=== PATIENT | male | born 1950 | race Caucasian/White ===

== ENCOUNTER → 2017-06-28 14:55 | Outpatient (CLI) | payer MEDICARE, SELFPAY ==
--- NOTE | 2017-06-28 15:01 | RAD_ITS ---
STUDY: X-RAY - RIGHT SHOULDER REASON FOR EXAM: Male, 67 years old. Pain TECHNIQUE: 4 view(s) of the shoulder. COMPARISON: None. FINDINGS: There is no evidence of fracture or dislocation. There are mild degenerative changes noted. There are no radiodense foreign bodies. RAD/Shoulder min 2 Views IMPRESSION: No fracture or dislocation. Mild degenerative changes. Electronically Signed: Tru Tomas, at 23:57 EDT Tel , Service support ,
== END ==
PROVIDERS: Family Provider Internal Medicine; PCP Internal Medicine; Visit Provider Internal Medicine
DX: M25.511 Pain in right shoulder (principal)
CPT/HCPCS: 73030

== ENCOUNTER → 2017-09-25 09:16 | Outpatient (CLI) | payer MEDICARE, SELFPAY ==
--- NOTE | 2017-09-25 09:35 | EKG12_ITS ---
Test Reason : PREOP Blood Pressure : / mmHG Vent. Rate : 064 BPM Atrial Rate : 064 BPM P-R Int : 186 ms QRS Dur : 088 ms QT Int : 390 ms P-R-T Axes : 060 051 037 degrees QTc Int : 402 ms Normal sinus rhythm Normal ECG Confirmed by MOISES BAKER, DIANA ([id number]), city editor DOROTA PRUITT ([id number] on 09/28/2017 1:39:03 PM Referred By: Geoff Galvin Confirmed By:DIANA DE LEON MD
[2017-09-25 10:15] LABS: Hematocrit 38.5 % (40-54); Hemoglobin 12.9 g/dl (13.0-16.5); Mean Corp Hgb Conc 33.5 g/gl (32-36); Mean Corpuscular Hgb 29.1 pg (27.0-32.0); Mean Corpuscular Volume 86.7 fL (80-94); Mean Platelet Vol. 10.5 fl (6.2-12.0); Platelet Count 250 K/mm3 (150-450); RBC Distribution Width SD 40.5 fl (35.1-43.9); Red Blood Count 4.44 M/mm3 (4.6-6.2)
[2017-09-25 10:16] LABS: Scan Indicated on CBC? Y/N NO
[2017-09-25 11:09] LABS: Anion Gap 6 (5-15); BUN 15 mg/dL (7-18); BUN/Creat Ratio 18.5 RATIO (10-20); Chloride 104 mmol/L (98-107); Creatinine, Serum 0.81 mg/dL (0.70-1.30); EST Glomerular Filtration Rate 101 mL/min (>60); Est Glom Filt Rate - Afr Amer 122 mL/min (>60); Glucose 90 mg/dL (74-106); Potassium 4.5 mmol/L (3.5-5.1); Sodium Level 139 mmol/L (136-145)
== END ==
PROVIDERS: Family Provider Internal Medicine; PCP Internal Medicine; Visit Provider Physician Assistant
DX: Z01.818 Encounter for other preprocedural examination (principal); Z01.810 Encounter for preprocedural cardiovascular examination
CPT/HCPCS: 36415; 80048; 85027; 93005

== ENCOUNTER 2018-04-08 12:37 | Emergency (ER) | payer MEDICARE, SELFPAY ==
[2018-04-08 12:40] VITALS: BP 164/88; PULSE 85; RESP 14; TEMP 36.6; O2SAT 99; BMI 31.5
--- NOTE | 2018-04-08 12:59 | CT_ITS ---
STUDY: CT ABDOMEN AND PELVIS WITH CONTRAST REASON FOR EXAM: Male, 68 years old. Periumbilical suprapubic pain. Nausea, vomiting and diarrhea. RADIATION DOSAGE (If Supplied By Facility): CTDIvol = ( 13.01 ) mGy, DLP = ( 827.63 ) mGycm TECHNIQUE: Transaxial images were obtained from the dome of the diaphragm to the symphysis pubis without oral contrast. 100 ml of Isovue 300 contrast was administered. Sagittal and coronal images were reconstructed. Individualized dose optimization techniques were used for this CT. COMPARISON: October 06, 2016. FINDINGS: The visualized lung bases are unremarkable. The visualized portions of the heart are within normal limits. The liver appears normal in size and contour. Several hypodensities in the left liver consistent with cysts. The largest in segment 3, measures 2.0 x 1.8 x 1.0 cm in size. There are surgical clips in the gallbladder fossa consistent with a prior cholecystectomy. Normal spleen. Normal pancreas. Normal bilateral adrenal glands. Normal right kidney. Normal left kidney. Normal bilateral ureters. Question small type I hiatal hernia. The stomach is otherwise unremarkable. Normal small intestine. There is evidence of sigmoid diverticulitis with stranding of the pericolonic fat and thickening of the cecal wall. The proximal colon appears unremarkable. There is non-visualization of the appendix. There is diffuse atherosclerotic calcification of the abdominal aorta, without a demonstrated aneurysm. Normal inferior vena cava. Normal retroperitoneum. Normal urinary bladder. The prostate is mildly enlarged. Prominent seminal vesicles. There is no pelvic lymphadenopathy. No free air or free fluid is seen within the peritoneal cavity. There is small umbilical hernia of omental fat. The abdominal wall is otherwise unremarkable. Normal osseous structures. CT/Abdomen/Pelvis W IV Cont ONLY IMPRESSION: 1. Sigmoid diverticulitis without evidence of perforation or abscess. 2. Stable hepatic cysts. 3. Enlarged prostate. Electronically Signed: Arpan Farrell DO at 14:28 EST Tel [phone], Service support ,
--- NOTE | 2018-04-08 13:01 | ED.VISSUMM ---
- ER Visit Summary Date of Service: 04/08/18 Chief Complaint: Suprapubic and periumbilical abdominal pain History of Present Illness: The patient is a 68 M history of prior diverticulitis. Also hypertension, BPH and prior cholecystectomy. Patient states on Sunday starting in the periumbilical suprapubic abdominal pain is now worse. Initially had some constipation but has had a bowel movement since that time. He is felt somewhat bloated. He denies any melena. No fever. No weight change. No abdominal trauma. Physical Examination: Well-appearing older male. Vital signs are stable. Afebrile. He does not look septic or toxic. He is in no acute distress. H EENT exam unremarkable. Neck nontender no lymphadenopathy. Lungs clear to auscultation bilaterally. Heart regular rhythm no murmur. Abdomen soft. Nondistended. Normal bowel sounds. No peritoneal signs. Both right upper and right lower quadrant unremarkable. He has tenderness in the suprapubic periumbilical region. There is no hernias or masses. No pulsatile mass. Extremities moves all 4. Back nontender. Neurologically is awake alert with no focal motor deficits. Test Results: [] Emergency Department Course and Treatment: CT and labs to be obtained due to abdominal pain. Currently patient does not want anything for pain or nausea. He will be hydrated with a liter of normal saline due to the IV contrast. Treatment Plan: [] Disposition: [] Impression: Acute abdominal pain This note was generated with [employer] dictation software. It may contain incorrect words, spelling, and punctuation that were not noted in review of the chart prior to signing ED Disposition - Plan for ED Patient: Chief Complaint: Abd Pain Referrals: Caridad Grace DO [Primary Care Provider] -
[2018-04-08] MEDS: 0.9% Normal Saline 1,000 ML 1000 ML IV (13:19)
[2018-04-08 13:20] LABS: Absolute Lymphocyte Count 1.25 X10^3/ul (0.83-4.51); Basophil# 0.03 X10^3/uL; Basophil% 0.3 % (0-1); Eosinophil# 0.07 X10^3/uL; Eosinophils% 0.7 % (0-5); Hemoglobin 13.7 g/dl (13.0-16.5); Lymphocyte # 1.25 X10^3/ul (4.0); Mean Corp Hgb Conc 33.4 g/gl (32-36); Mean Corpuscular Hgb 28.6 pg (27.0-32.0); Mean Corpuscular Volume 85.6 fL (80-94); Mean Platelet Vol. 10.1 fl (6.2-12.0); Monocyte# 1.06 X10^3/uL; Monocyte% 10.1 % (0-10); Neutrophil # 8.02 X10^3/uL (2.7-7.7); Neutrophil % 76.7 % (47-70); Platelet Count 286 K/mm3 (150-450); RBC Distribution Width CV 13.1 % (11.6-14.6); RBC Distribution Width SD 40.1 fl (35.1-43.9); Red Blood Count 4.79 M/mm3 (4.6-6.2); White Blood Count 10.5 K/mm3 (4.4-11.0)
[2018-04-08 13:22] LABS: POSITIVE COUNT NO; POSITIVE DIFFERENTIAL NO; POSITIVE MORPHOLOGY NO
[2018-04-08 13:35] LABS: AST(SGOT) 21 U/L (15-37); Alanine Aminotransfer ALT/SGPT 23 U/L (16-61); Alkaline Phosphatase 85 U/L (45-117); Anion Gap 9 (5-15); BUN 12 mg/dL (7-18); Bilirubin, Direct 0.13 mg/dL (0.00-0.30); Calcium,Total 8.9 mg/dL (8.5-10.1); Chloride 103 mmol/L (98-107); Creatinine, Serum 0.86 mg/dL (0.70-1.30); EST Glomerular Filtration Rate 94 mL/min (>60); Est Glom Filt Rate - Afr Amer 114 mL/min (>60); Estimated Creatinine Clearance 76.86 ml/min; Globulin 4.3 g/dL (2.2-4.2); Glucose 92 mg/dL (74-106); Lipase 94 U/L (73-393); Potassium 3.8 mmol/L (3.5-5.1); Protein, Total 8.3 g/dL (6.4-8.2); Sodium Level 140 mmol/L (136-145)
[2018-04-08 14:22] LABS: Bacteria 0 SEEN /hpf (None Seen); Mucous, Urine 0 SEEN /hpf (<or=2+); Red Blood Cells-Urine 0 SEEN /hpf (0-5); Squamous Epithelial Cells - UA 0 SEEN /hpf (0-5); White Blood Cells 0 SEEN /hpf (0-5)
[2018-04-08 14:28] LABS: Color, Urine Yellow (Yellow); Glucose, Dipstick Normal (Normal); Ketone-Dipstick Negative (Negative); Leukocyte Esterase-Dipstick Negative /ul (Negative); Nitrite-Dipstick Negative (Negative); Occult Blood-Urine Negative /ul (Negative); Protein-Dipstick Negative (Negative); Urine Bilirubin Dipstick Negative (Negative); Urine Clarity Clear (Clear); Urine Urobilinogen Normal (Normal)
[2018-04-08 14:51] VITALS: RESP 18
--- NOTE | 2018-04-08 14:56 | ED.VISSUMM ---
- ER Visit Summary Date of Service: 04/08/18 Chief Complaint: Abdominal pain History of Present Illness: The patient is a 68 M history of hypertension and BPH. Prior cholecystectomy. Patient states that he has had abdominal pain is periumbilical and suprapubic since Sunday. Gradual in onset. Denies any nausea, vomiting or diarrhea since that time is had bowel movements. No melena. No hematemesis. No fever. No dysuria. Says he feels a little bloated. He has had a history of diverticulitis before. Denies any back pain. Physical Examination: Well-appearing older male. Vital signs are stable afebrile. H EENT exam unremarkable. Moist mucous membranes. Neck nontender no lymphadenopathy. Lungs clear to auscultation bilaterally. Heart regular rate and rhythm no murmur. Abdomen soft. Nondistended. Normal bowel sounds. Patient is mildly tender just below his umbilicus. There is no obvious hernia or mass. But the right upper right lower quadrant unremarkable. No signs of obstruction. No pulsatile mass. Extremities moves all 4. No edema. Neurologically is awake and alert. No focal motor deficits. Test Results: Normal white count of 10. Normal hemoglobin and hematocrit. Chemistries normal normal creatinine and gap. Liver enzymes and lipase normal. UA normal no signs of infection. Bladder scan was only about 130 cc no signs of urinary retention. CT abdomen pelvis with IV contrast shows sigmoid diverticulitis. No abscess or perforation. Enlarged prostate. Incidental finding of liver cyst. Read by the radiologist and reviewed by me. Emergency Department Course and Treatment: Patient's history and exam are consistent with acute diverticulitis. He will be given a dose of Cipro and Flagyl in the emergency department. Treatment Plan: Cipro 500 twice daily for 10 days. Flagyl 500 3 times daily for 10 days. The follow-up with his primary care physician. Return if worse. Disposition: Discharge Impression: Acute abdominal pain secondary to acute sigmoid diverticulitis This note was generated with [employer] dictation software. It may contain incorrect words, spelling, and punctuation that were not noted in review of the chart prior to signing ED Disposition - Plan for ED Patient: Chief Complaint: Abd Pain Referrals: Caridad Grace DO [Primary Care Provider] -
--- NOTE | 2018-04-08 15:02 | ED.DEP ---
ED Disposition - Plan for ED Patient: Disposition: Home or Assisted Living Chief Complaint: Abd Pain Instructions: ED Diverticulitis Prescriptions: Metronidazole [Flagyl] 500 mg PO Q8H #30 tab Ciprofloxacin [Cipro] 500 mg PO BID #20 tab Referrals: Caridad Grace DO [Primary Care Provider] - 1 Week Additional Instructions: Plenty of fluids and rest. Cipro 1 pill twice a day for 10 days. Flagyl 1 pill 3 times a day for 10 days. Tylenol for pain. Follow-up with your doctor. Return if feeling worse.
[2018-04-08] MEDS: Ciprofloxacin 500 MG Tablet PO (15:17)
[2018-04-08] MEDS: metroNIDAZOLE 500 MG Tablet PO (15:22)
== END 2018-04-08 15:23 | disposition home or self-care (01) ==
PROVIDERS: Emergency Provider Emergency Medicine; Family Provider Internal Medicine; PCP Internal Medicine
DX: K57.32 Diverticulitis of large intestine without perforation or abscess without bleeding (principal); N40.0 Benign prostatic hyperplasia without lower urinary tract symptoms; K76.89 Other specified diseases of liver; I10 Essential (primary) hypertension; Z90.49 Acquired absence of other specified parts of digestive tract
CPT/HCPCS: 74177; 80048; 80076; 81001; 83690; 85025; 96360; 99284; J7030; Q9967; A4216

== ENCOUNTER 2019-03-19 10:00 | Inpatient (IN) | payer MEDICARE, OTHER, SELFPAY ==
[2019-03-19] VITALS (7 sets, daily range): BP systolic 129–153; BP diastolic 72–80; PULSE 73–99; RESP 16–20; TEMP 36.7–37.3; O2SAT 95–100; BMI 29.8; BMI 29.4
--- NOTE | 2019-03-19 10:14 | CT_ITS ---
STUDY: CT ABDOMEN AND PELVIS WITHOUT CONTRAST REASON FOR EXAM: Male, 69 years old. PT STATED ABDOM PAIN X 2 DAYS, HX OF DIVERTICULITIS AND ROBERT RADIATION DOSAGE (If Supplied By Facility): CTDIvol = ( 13.18 ) mGy, DLP = ( 691.34 ) mGycm TECHNIQUE: Transaxial images were obtained from the dome of the diaphragm to the symphysis pubis without oral contrast, and without intravenous contrast. Sagittal and coronal images were reconstructed. Individualized dose optimization techniques were used for this CT. COMPARISON: Comparison is made with prior study dated April 08, 2018. FINDINGS: The visualized lung bases are unremarkable. The visualized portions of the heart are within normal limits. Stable 1.8 cm cyst in the left lobe of the liver. There are surgical clips in the gallbladder fossa consistent with a prior cholecystectomy. Normal spleen. Normal pancreas. Normal bilateral adrenal glands. Normal right kidney. Normal left kidney. There is a small hiatal hernia. Normal small intestine. There is diverticulosis, with thickening of the colon wall, and pericolonic inflammation changes consistent with acute diverticulitis. 2 tiny air bubbles are seen within the peritoneal fat suggestive of a contained localized perforation. The appendix is visualized and appears normal. There is scattered atherosclerotic calcification of the abdominal aorta, without a demonstrated aneurysm. Normal inferior vena cava. Normal retroperitoneum. Normal urinary bladder. There are prostatic calcifications. Normal abdominal wall. There are mild degenerative changes of the visualized lumbar spine. CT/Abdomen/Pelvis without Cont IMPRESSION: Sigmoid diverticulosis with increased markings in the surrounding peritoneal fat in keeping with the acute sigmoid diverticulitis. Findings suggestive of a localized contained microperforation. Electronically Signed: Herrera Lopez, at 11:14 EST , Service support ,
--- NOTE | 2019-03-19 10:28 | ED.VISSUMM ---
- ER Visit Summary Date of Service: 03/19/19 Chief Complaint: [Abdominal pain] History of Present Illness: The patient is a 69 M [presents to the emergency department abdominal pain is started last evening. Patient states initially pain was left lower quadrant and suprapubic's but now seems to be located more to the right lower quadrant. Patient describes some difficulty starting his urine stream as well. He denies any pain in his back. He denies any fever. Has had no vomiting. Patient did have 3 watery stools this morning. He does have history of diverticulitis. Patient's had his gallbladder removed. Denies any sick contacts.] Physical Examination: [HEENT-PERRLA, EOMI. Cranial nerves II through XII grossly intact. TMs clear. Mucous membranes moist. No adenopathy. Cardiovascular-regular rate and rhythm without murmur or ectopy Lungs-clear to auscultation, chest wall stable without crepitus or subcu emphysema Abdomen-normoactive bowel sounds, soft. Patient has some tenderness palpation over right lower quadrant with some guarding. He is got tenderness over the suprapubic region and left lower quadrant with some guarding. There is no rebound, rigidity, or peritoneal signs. Extremities-intact ?4, normal range of motion, normal pulses, atraumatic] Test Results: [CBC with differential obtained showed an elevated white blood cell count of 12,000, hemoglobin 13, hematocrit 41, placed 224. Chemistries unremarkable. CT scan of the abdomen pelvis without contrast showed acute diverticulitis with microperforation.] Emergency Department Course and Treatment: [She refused pain medication in department. Patient was started on normal saline and was started on Cipro and Flagyl IV.] Treatment Plan: [Case was discussed with general surgeon on-call Dr. Urban Mendoza who will admit patient] Disposition: [Admit] Impression: [Acute diverticulitis with microperforation] This note was generated with [employer] dictation software. It may contain incorrect words, spelling, and punctuation that were not noted in review of the chart prior to signing ED Disposition - Plan for ED Patient: Referrals: Caridad Grace DO [Primary Care Provider] -
[2019-03-19 10:37] LABS: Absolute Lymphocyte Count 1.45 X10^3/uL (0.83-4.51); Absolute Neutrophil Count 9.3 X10^3/uL (2.0-7.7); Basophil# 0.06 X10^3/uL; Basophil% 0.5 % (0-1); Eosinophil# 0.09 X10^3/uL; Eosinophils% 0.7 % (0-5); Hematocrit 40.8 % (40-54); Hemoglobin 13.3 g/dL (13.0-16.5); Lymphocyte # 1.45 X10^3/ul (4.0); Lymphocyte % 12.1 % (19-41); Mean Corp Hgb Conc 32.6 g/dL (32-36); Mean Corpuscular Hgb 28.1 pg (27.0-32.0); Mean Corpuscular Volume 86.3 fL (80-94); Mean Platelet Vol. 9.5 fl (6.2-12.0); Monocyte# 1.13 X10^3/uL; Monocyte% 9.4 % (0-10); NRBC Flagged by Analyzer 0 % (0-5); Neutrophil # 9.25 X10^3/uL (2.7-7.7); Neutrophil % 76.9 % (47-70); Platelet Count 224 K/mm3 (150-450); RBC Distribution Width CV 12.8 % (11.6-14.6); RBC Distribution Width SD 40.2 fl (35.1-43.9); Red Blood Count 4.73 M/mm3 (4.6-6.2)
[2019-03-19 10:44] LABS: Anion Gap 4 (5-15); BUN 14 mg/dL (7-18); BUN/Creat Ratio 14.7 RATIO (10-20); Calcium,Total 9.3 mg/dL (8.5-10.1); Chloride 103 mmol/L (98-107); Creatinine, Serum 0.95 mg/dL (0.70-1.30); EST Glomerular Filtration Rate 83 mL/min (>60); Est Glom Filt Rate - Afr Amer 101 mL/min (>60); Estimated Creatinine Clearance 68.61 ml/min; Glucose 100 mg/dL (74-106); Potassium 3.9 mmol/L (3.5-5.1); Sodium Level 137 mmol/L (136-145)
[2019-03-19] MEDS: metroNIDAZOLE 500 MG/100 ML BAG 100 MG IV ×3 (11:52→22:25)
[2019-03-19] MEDS: 0.9% Normal Saline 1,000 ML 125 ML IV ×2 (11:52→22:26)
[2019-03-19 12:00] LABS: Bacteria 0 SEEN /hpf (None Seen); Mucous, Urine 0 SEEN /hpf (<or=2+); Red Blood Cells-Urine 0 SEEN /hpf (0-5); Squamous Epithelial Cells - UA 0 SEEN /hpf (0-5); White Blood Cells 0 SEEN /hpf (0-5)
[2019-03-19 12:03] LABS: Color, Urine Yellow (Yellow); Glucose, Dipstick Normal (Normal); Ketone-Dipstick Negative (Negative); Leukocyte Esterase-Dipstick Negative /ul (Negative); Nitrite-Dipstick Negative (Negative); Occult Blood-Urine Negative /ul (Negative); Protein-Dipstick Negative (Negative); Specific Gravity, Urine 1.005 (1.002-1.030); Urine Bilirubin Dipstick Negative (Negative); Urine Clarity Clear (Clear); Urine Urobilinogen Normal (Normal)
--- NOTE | 2019-03-19 12:31 | HP.PCM_ITS ---
Problem List (1) Perforation of sigmoid colon due to diverticulitis Status: Acute (2) Hypertension Status: Chronic Qualifiers: Hypertension type: unspecified Qualified Code(s): I10 - Essential (primary) hypertension (3) BPH (benign prostatic hyperplasia) Status: Chronic Qualifiers: Lower urinary tract symptom detail: unspecified History of Present Illness Date of Admission: 03/19/19 The patient is a 69 year old M who presented to the emergency room with a 1 day history of mid abdominal pain. The patient states that over the past 1 to 2 years he has had 2 previous bouts this was now being the third bout of abdominal pain which is been diagnosed as diverticulitis. Previously was seen in the emergency room and was able to be discharged on oral antibiotics. On this occasion however white blood cell count is 12,000 with a hemoglobin 13.3 hematocrit 40.8 platelet count 224,000 with 76.9% neutrophils. Is a 14 creatinine 0.95 urinalysis is not remarkable. A noncontrasted CT scan was obtained through the emergency room. This demonstrates sigmoid diverticulosis there are increased markings of the surrounding peritoneal fat this actually is quite significant particularly medially and there are air bubbles located within this consistent with perforation. No distinct abscess at this time. Patient denies having had fever or chills at home. His most recent colonoscopy he believes was about 4 to 5 years ago. He denies personal history of colon polyps or cancer. Initially with his first episode he thought popcorn was eliciting food. He has eliminated all popcorn and seeds. He has not recognized a particular trigger food that may have caused this episode. Past Medical History Past Medical History (Chronic Problems): Chronic Problems Hypertension (Chronic) BPH (benign prostatic hyperplasia) (Chronic) Allergies metoclopramide [From Reglan] Adverse Reaction (Verified 03/19/19 10:03) Other AGGITATION Home Medications: Ambulatory Orders Medication Instructions Recorded Tamsulosin HCl [Flomax] 1 tab PO DAILY 10/06/16 Amlodipine Besylate 5 mg PO DAILY 04/08/18 Ciprofloxacin [Cipro] 500 mg PO BID #20 tab 04/08/18 metroNIDAZOLE [Flagyl] 500 mg PO Q8H #30 tab 04/08/18 Smoking Status: Former smoker Review of Systems Constitutional: Denies: Anorexia HEENT: Denies: Difficulty Swallowing Cardiovascular: Denies: Chest Pain Respiratory: Denies: Cough Gastrointestinal: Reports: Abdominal Pain. Denies: Melena Neurological: Reports: - - Chronic pain right knee and right foot from previous injury and orthopedic surgery Endocrine: Denies: Change in Body Habitus VTE Information - Inpt Only VTE Present on Admission: No Patient Problems: Active and Suspected Problems Perforation of sigmoid colon due to diverticulitis (Acute) - Physical Exam Vitals/I&O's: Vital Signs Temp Pulse Resp BP Pulse Ox 98.7 F 75 18 135/80 H 98 03/19/19 10:01 03/19/19 10:01 03/19/19 12:04 03/19/19 10:01 03/19/19 10:01 Oxygen Delivery Method Room Air Weight: 190 lb 7.67 oz Body Mass Index (BMI) 29.8 General: Alert, Oriented x3, Cooperative, No apparent distress HEENT: Atraumatic Oral: Moist Mucosa Neck: Supple, - - Carotids are 3+ no bruits Lungs: Clear to auscultation, Normal air movement Cardiovascular: Regular rate, Regular Rhythm Abdomen: Soft, Hypoactive Bowel Sounds, - - Mild tenderness palpation infraumbilical mid abdomen slightly to the right, no mass or rebound Extremities: No clubbing Psych/Mental Status: Normal Affect Laboratory Results 03/19/19 10:24: WBC 12.0 H, RBC 4.73, Hgb 13.3, Hct 40.8, MCV 86.3, MCH 28.1, MCHC 32.6, RDW Std Deviation 40.2, RDW Coeff of [place] 12.8, Plt Count 224, MPV 9.5, Immature Gran % (Auto) 0.400, Neut % (Auto) 76.9 H, Lymph % (Auto) 12.1 L, [place] % (Auto) 9.4, Eos % (Auto) 0.7, Baso % (Auto) 0.5, Absolute Neuts (auto) 9.3 H, Absolute Lymphs (auto) 1.45, Nucleated RBC % 0 03/19/19 10:24: Sodium 137, Potassium 3.9, Chloride 103, Carbon Dioxide 30.0, Anion Gap 4 L, BUN 14, Creatinine 0.95, Estim Creat Clear Calc 68.61, Est GFR (MDRD) Af Amer 101, Est GFR (MDRD) Non-Af 83, BUN/Creatinine Ratio 14.7, Glucose 100, Calcium 9.3 01/08/20 11:55: Urine Color Yellow, Urine Clarity Clear, Urine pH 7.0, Ur Specific [place] 1.005, Urine Protein Negative, Urine Glucose (UA) Normal, Urine Ketones Negative, Urine Occult Blood Negative, Urine Nitrite Negative, Urine Bilirubin Negative, Urine Urobilinogen Normal, Ur Leukocyte Esterase Negative, Urine RBC 0 SEEN, Urine WBC 0 SEEN, Ur Squamous Epith Cells 0 SEEN, Urine Bacteria 0 SEEN, Urine Mucus 0 SEEN Current Medications Sodium Chloride () 1,000 mls @ 125 mls/hr IV .Q8H [facility] Last Admin: 03/19/19 11:52 Dose: 125 mls/hr Documented by: Assessment/Plan All Active Problems Perforation of sigmoid colon due to diverticulitis (Acute) Symptomatically and clinically the patient appears rather stable. His CT imaging however is quite significant for significant pericolonic inflammatory change and multiple air bubbles. I recommend that the patient be hospitalized and be put to bowel rest. I have discussed with the patient the potential need to undergo emergency surgery with us trying to avoid that. This is now his third episode within a relatively short period of time. The patient and a ctually brought the question forward as to whether he could should be considering a more aggressive treatment. Hopefully we will will be able to conservatively manage this episode. I would then consider a future outpatient colonoscopy and will have time to further discuss with him the benefit risk complications alternatives of a laparoscopic sigmoid colectomy for recurrent diverticular disease. That is not a foregone conclusion though at this time. Urban Mendoza M.D., F.A.C.S.
[2019-03-19] MEDS: Ciprofloxacin 400 MG/200 ML BAG 200 MG IV ×2 (13:28→21:00)
[2019-03-19] MEDS: Morphine 4 MG/ML Syringe IV (13:31)
[2019-03-19] MEDS: Ondansetron 4 MG/2 ML Vial IV (13:31)
[2019-03-19] MEDS: Acetaminophen 325 MG Tablet 650 MG PO (20:36)
[2019-03-20 02:10] VITALS: BP 127/75; PULSE 64; RESP 16; TEMP 36.7; O2SAT 99
[2019-03-20] MEDS: metroNIDAZOLE 500 MG/100 ML BAG 100 MG IV ×3 (05:33→21:35)
[2019-03-20] MEDS: Acetaminophen 325 MG Tablet 650 MG PO (05:37)
--- NOTE | 2019-03-20 05:50 | PN.SURG_ITS ---
Patient Problems: Active and Suspected Problems Perforation of sigmoid colon due to diverticulitis (Acute) Subjective: Patient still notes discomfort low mid abdomen slightly to the right, notes some gas pains, feels improved over admission yesterday, some flatus, no stools - Physical Exam Vitals/I&O's: Vital Signs Temp Pulse Resp BP Pulse Ox 98.1 F 64 16 127/75 H 99 03/20/19 02:10 03/20/19 02:10 03/20/19 02:10 03/20/19 02:10 03/20/19 02:10 Oxygen Delivery Method Room Air Weight: 188 lb 0.869 oz Body Mass Index (BMI) 29.4 Intake and Output for Last 24 Hours 03/18/19 03/19/19 03/20/19 23:59 23:59 23:59 Intake Total 1700.0 / 1700.0 766.67 / 766.67 Output Total 500 / 1075 1050 / 1050 Balance 1200.0 / 625.0 -283.33 / -283.33 Lungs: Clear to auscultation Abdomen: Soft - Mild tenderness low mid abdomen slightly to the right, Hypoactive Bowel Sounds Laboratory Results 03/19/19 10:24: WBC 12.0 H, RBC 4.73, Hgb 13.3, Hct 40.8, MCV 86.3, MCH 28.1, MCHC 32.6, RDW Std Deviation 40.2, RDW Coeff of Bradley 12.8, Plt Count 224, MPV 9.5, Immature Gran % (Auto) 0.400, Neut % (Auto) 76.9 H, Lymph % (Auto) 12.1 L, [place] % (Auto) 9.4, Eos % (Auto) 0.7, Baso % (Auto) 0.5, Absolute Neuts (auto) 9.3 H, Absolute Lymphs (auto) 1.45, Nucleated RBC % 0 03/19/19 10:24: Sodium 137, Potassium 3.9, Chloride 103, Carbon Dioxide 30.0, Anion Gap 4 L, BUN 14, Creatinine 0.95, Estim Creat Clear Calc 68.61, Est GFR (MDRD) Af Amer 101, Est GFR (MDRD) Non-Af 83, BUN/Creatinine Ratio 14.7, Glucose 100, Calcium 9.3 03/19/19 11:55: Urine Color Yellow, Urine Clarity Clear, Urine pH 7.0, Ur Specific [place] 1.005, Urine Protein Negative, Urine Glucose (UA) Normal, Urine Ketones Negative, Urine Occult Blood Negative, Urine Nitrite Negative, Urine Bilirubin Negative, Urine Urobilinogen Normal, Ur Leukocyte Esterase Negative, Urine RBC 0 SEEN, Urine WBC 0 SEEN, Ur Squamous Epith Cells 0 SEEN, Urine Bacteria 0 SEEN, Urine Mucus 0 SEEN 03/20/19 05:12: WBC Pending, RBC Pending, Hgb Pending, Hct Pending, MCV Pending, MCH Pending, MCHC Pending, RDW Std Deviation Pending, RDW Coeff of Bradley Pending, Plt Count Pending, Neut % (Auto) Pending, Absolute Neuts (auto) Pending 03/20/19 05:12: Sodium Pending, Potassium Pending, Chloride Pending, Carbon Dioxide Pending, Anion Gap Pending, BUN Pending, Creatinine Pending, Est GFR (MDRD) Af Amer Pending, Est GFR (MDRD) Non-Af Pending, BUN/Creatinine Ratio Pending, Glucose Pending, Calcium Pending Current Medications Acetaminophen (Tylenol) 650 mg PO Q6H PRN PRN PRN Reason: Pain Score 1-3/Temp > 100.7 F Last Admin: 03/20/19 05:37 Dose: 650 mg Documented by: Enoxaparin Sodium (Lovenox) 40 mg SC DAILY [facility] Sodium Chloride () 1,000 mls @ 50 mls/hr IV .Q20H [facility] Last Infusion: 03/20/19 05:33 Dose: 0 mls/hr Documented by: Ciprofloxacin (Cipro) 400 mg in 200 mls @ 200 mls/hr IV Q12 [facility] Last Infusion: 03/19/19 22:00 Dose: Infused Documented by: Metronidazole (Flagyl) 500 mg in 100 mls @ 100 mls/hr IV Q8 [facility] Last Admin: 03/20/19 05:33 Dose: 100 mls/hr Documented by: Ondansetron HCl (Zofran) 4 mg IV Q8H PRN PRN PRN Reason: NAUSEA/VOMITING Sodium Chloride () 10 - 40 ml IV UD PRN PRN Reason: SALINE FLUSH Medical Necessity - Tobacco Use Smoking Status: Former smoker Tobacco Use: Cigarettes Assessment/Plan All Active Problems Perforation of sigmoid colon due to diverticulitis (Acute) Will await laboratory and then consider initiation of clear liquids. Continue IV antibiotics at this time.
--- NOTE | 2019-03-20 05:51 | DCINST_ITS ---
Discharge Diet: Light diet - advance as tolerated - if you have questions about your diet instructions, please talk to you doctor., - - Encouraged use of nutritional supplements like Ensure or Sustacal or boost or [place] instant breakfast drink. Soups and soft pasta encouraged. You may utilize a [id number] probiotic. The use of live culture yogurt also encouraged. The diet may be slowly advanced as your sense of abdominal wellbeing improves Discharge Activity: May Drive, May Shower May shower in (days): 0 Lifting Restrictions: 10 pounds Call your doctor if your incision/area has: Continuous Slow Oozing, Sudden Increased Bleeding, Increased Pain/ Swelling, Increased Redness, Foul Smelling Discharge Call your doctor if you observe: Fever of 101 or Higher Suture Line Care: Avoid Pulling/Pushing, Avoid Pinching/Bending Additional Instructions: There is a interaction between ciprofloxacin your antibiotic that is being prescribed and Flomax which you take. Please hold your Flomax while you are taking the ciprofloxacin. You may then resume the medication when you have completed your antibiotic. Allergies/Adverse Reactions: Allergies metoclopramide [From Reglan] Adverse Reaction (Verified 03/19/19 14:17) AGITATION AGITATION Medications to take at Discharge Tamsulosin HCl [Flomax] 0.4 mg PO QHS 10/06/16 Amlodipine [Norvasc] 5 mg PO DAILY 03/19/19 Aspirin E.C. [Ecotrin] 81 mg PO DAILY@0800 03/19/19 Lansoprazole 15 mg PO DAILY 03/19/19 Rosuvastatin Calcium 10 mg PO DAILY 03/19/19 Ciprofloxacin [Cipro] 500 mg PO BID #10 tab 03/21/19 Metronidazole 500 mg PO TID #15 tab 03/21/19 The following prescriptions were given: Ciprofloxacin [Cipro] 500 mg PO BID #10 tab Transmission Status: Pending to [facility] Metronidazole 500 mg PO TID #15 tab Transmission Status: Pending to [facility] Primary Care Physician: Caridad Grace DO [Primary Care Provider] - Test Results: Test results from this visit will be discussed in further detail at your follow- up appointment, if applicable. Please Follow Up With: Urban Mendoza MD - [phone] When: Call to make an appointment to be seen approximately Sun/ next week.
[2019-03-20 06:04] LABS: Absolute Lymphocyte Count 1.48 X10^3/uL (0.83-4.51); Absolute Neutrophil Count 6.2 X10^3/uL (2.0-7.7); Basophil# 0.06 X10^3/uL; Basophil% 0.7 % (0-1); Eosinophil# 0.11 X10^3/uL; Eosinophils% 1.3 % (0-5); Hematocrit 37.5 % (40-54); Hemoglobin 12.3 g/dL (13.0-16.5); Lymphocyte # 1.48 X10^3/ul (4.0); Lymphocyte % 16.9 % (19-41); Mean Corp Hgb Conc 32.8 g/dL (32-36); Mean Corpuscular Hgb 28.6 pg (27.0-32.0); Mean Corpuscular Volume 87.2 fL (80-94); Mean Platelet Vol. 10.2 fl (6.2-12.0); Monocyte# 0.93 X10^3/uL; Monocyte% 10.6 % (0-10); NRBC Flagged by Analyzer 0 % (0-5); Neutrophil # 6.16 X10^3/uL (2.7-7.7); Neutrophil % 70.3 % (47-70); Platelet Count 194 K/mm3 (150-450); RBC Distribution Width CV 12.9 % (11.6-14.6); RBC Distribution Width SD 41.1 fl (35.1-43.9); White Blood Count 8.8 K/mm3 (4.4-11.0)
[2019-03-20 06:14] LABS: Anion Gap 5 (5-15); BUN 11 mg/dL (7-18); BUN/Creat Ratio 12.2 RATIO (10-20); Calcium,Total 8.9 mg/dL (8.5-10.1); Chloride 107 mmol/L (98-107); EST Glomerular Filtration Rate 89 mL/min (>60); Est Glom Filt Rate - Afr Amer 107 mL/min (>60); Estimated Creatinine Clearance 72.42 ml/min; Glucose 84 mg/dL (74-106); Sodium Level 139 mmol/L (136-145)
[2019-03-20 08:10] VITALS: BP 105/68; PULSE 98; RESP 18; TEMP 36.7; O2SAT 100
[2019-03-20] MEDS: Ciprofloxacin 400 MG/200 ML BAG 200 MG IV ×2 (10:34→21:35)
[2019-03-20] MEDS: Enoxaparin 40 MG/0.4 ML Syringe SC (10:39)
--- NOTE | 2019-03-20 10:45 | NURSING ---
pt abdomen only painful w/ palpation
--- NOTE | 2019-03-20 11:05 | CASEMGMT ---
RN RAMIN Face to Face with patient for initial transition planning/care coordination assessment. RN CM introduced self and role at [facility]. Patient lying in bed, alert and oriented. Patient willing to participate in assessment and is able to answer all questions appropriately. Care providers, pharmacy, and demographics verified. Patient wishes to discharge home, denies need for home health at this time. Patient states he has no further needs or concerns at this time. CM to follow for discharge planning needs that may arise. PCP: Lesly Specialists: Hao Webb Pharmacy: [facility] Insurance: [employer] [facility] Prescription Benefit: yes Living Will/HPOA: none LNOK: Living Arrangements: Patient lives with in 2 story home. Patient is independent at home. Transportation: self/ DME/HHC: Patient has crutches, grab bars, and raised toilet. Patient denies previous HHC. Disposition Plan: Patient to discharge home with family support and follow-up plans in place. Karen MACIEL, RN, CM
[2019-03-20] MEDS: 0.9% Normal Saline 1,000 ML 50 ML IV (11:13)
[2019-03-20 14:00] VITALS: BP 149/90; PULSE 66; RESP 18; TEMP 36.7; O2SAT 99
[2019-03-20 20:00] VITALS: BP 138/73; PULSE 62; RESP 16; TEMP 36.6; O2SAT 95
[2019-03-21 02:00] VITALS: BP 135/74; PULSE 62; RESP 16; TEMP 36.6; O2SAT 98
[2019-03-21] MEDS: metroNIDAZOLE 500 MG/100 ML BAG 100 MG IV (04:50)
[2019-03-21] MEDS: 0.9% Normal Saline 1,000 ML 50 ML IV (04:50)
--- NOTE | 2019-03-21 06:35 | PN.SURG_ITS ---
Patient Problems: Active and Suspected Problems Perforation of sigmoid colon due to diverticulitis (Acute) Subjective: Tolerating clears. Has had several stools. Still notes some mild low mid abdominal discomfort. No fever noted. - Physical Exam Vitals/I&O's: Vital Signs Temp Pulse Resp BP Pulse Ox 97.9 F 62 16 135/74 H 98 03/21/19 02:00 03/21/19 02:00 03/21/19 02:00 03/21/19 02:00 03/21/19 02:00 Oxygen Delivery Method Room Air Weight: 188 lb 0.869 oz Body Mass Index (BMI) 29.4 Intake and Output for Last 24 Hours 03/19/19 03/20/19 03/21/19 23:59 23:59 23:59 Intake Total 1700.0 / 1700.0 2425.00 / 2785.00 1486.67 / 1486.67 Output Total 500 / 1075 2400 / 2400 850 / 850 Balance 1200.0 / 625.0 25.00 / 385.00 636.67 / 636.67 Abdomen: Bowel Sounds Present, Soft, Non Tender Current Medications Acetaminophen (Tylenol) 650 mg PO Q6H PRN PRN PRN Reason: Pain Score 1-3/Temp > 100.7 F Last Admin: 03/20/19 05:37 Dose: 650 mg Documented by: Enoxaparin Sodium (Lovenox) 40 mg SC DAILY [facility] Last Admin: 03/20/19 10:39 Dose: 40 mg Documented by: Sodium Chloride () 1,000 mls @ 50 mls/hr IV .Q20H [facility] Last Admin: 03/21/19 04:50 Dose: 50 mls/hr Documented by: Ciprofloxacin (Cipro) 400 mg in 200 mls @ 200 mls/hr IV Q12 [facility] Last Infusion: 03/20/19 23:22 Dose: Infused Documented by: Metronidazole (Flagyl) 500 mg in 100 mls @ 100 mls/hr IV Q8 [facility] Last Infusion: 03/21/19 05:57 Dose: Infused Documented by: Ondansetron HCl (Zofran) 4 mg IV Q8H PRN PRN PRN Reason: NAUSEA/VOMITING Sodium Chloride () 10 - 40 ml IV UD PRN PRN Reason: SALINE FLUSH Medical Necessity - Tobacco Use Smoking Status: Former smoker Tobacco Use: Cigarettes Assessment/Plan All Active Problems Perforation of sigmoid colon due to diverticulitis (Acute) Plan discharge today on a liquid diet with nutritional supplements. I plan short-term office follow-up next week. We will continue to prescribe oral antibiotics as an outpatient. Urban Mendoza M.D., F.A.C.S.
--- NOTE | 2019-03-21 06:37 | DS.PCM_ITS ---
Discharge Date and Diagnosis - Problem List Patient Problems: Active and Suspected Problems Perforation of sigmoid colon due to diverticulitis (Acute) Date of Admission: 03/19/19 Date of Discharge: 03/21/19 - Primary Discharge Diagnosis Active and Suspected Problems Perforation of sigmoid colon due to diverticulitis (Acute) - Secondary Discharge Diagnosis Chronic Problems Hypertension (Chronic) BPH (benign prostatic hyperplasia) (Chronic) Hospital Course and Treatment Operations: None Procedures: None Summary of Care Provided: The patient is a 69 year old M who was admitted with acute onset of abdominal pain. Clinical findings consistent with acute sigmoid diverticulitis and imaging suggested microperforation with mesenteric inflammatory changes. His initial white count was 12,000 but improved the subsequent day to 8.8 thousand. His left shift improved as well. On his second day of hospitalization he was initiated on clear liquids tolerating diet. He had resumption of bowel function. His discomfort improved. He was treated with IV ciprofloxacin and metronidazole. By March 21, 2019 felt that he had made sufficient coverage for discharge. This was his third episode within the past year or so. This was his first episode that required hospitalization. The changes on CT with a microperforation however were quite notable with multiple air bubbles noted. I anticipate outpatient follow-up with planned future colonoscopy and future discussion about benefits risks complications alternatives of a laparoscopic sigmoid colectomy. He was notably improved at the time of discharge. Urban Mendoza M.D., F.A.C.S. Patient Problems: Active and Suspected Problems Perforation of sigmoid colon due to diverticulitis (Acute) - Physical Exam Vitals/I&O's: Vital Signs Temp Pulse Resp BP Pulse Ox 97.9 F 62 16 135/74 H 98 03/21/19 02:00 03/21/19 02:00 03/21/19 02:00 03/21/19 02:00 03/21/19 02:00 Oxygen Delivery Method Room Air Weight: 188 lb 0.869 oz Body Mass Index (BMI) 29.4 Intake and Output for Last 24 Hours 03/19/19 03/20/19 03/21/19 23:59 23:59 23:59 Intake Total 1700.0 / 1700.0 2425.00 / 2785.00 1486.67 / 1486.67 Output Total 500 / 1075 2400 / 2400 850 / 850 Balance 1200.0 / 625.0 25.00 / 385.00 636.67 / 636.67 Current Medications Acetaminophen (Tylenol) 650 mg PO Q6H PRN PRN PRN Reason: Pain Score 1-3/Temp > 100.7 F Last Admin: 03/20/19 05:37 Dose: 650 mg Documented by: Enoxaparin Sodium (Lovenox) 40 mg SC DAILY [facility] Last Admin: 03/20/19 10:39 Dose: 40 mg Documented by: Sodium Chloride () 1,000 mls @ 50 mls/hr IV .Q20H [facility] Last Admin: 03/21/19 04:50 Dose: 50 mls/hr Documented by: Ciprofloxacin (Cipro) 400 mg in 200 mls @ 200 mls/hr IV Q12 [facility] Last Infusion: 03/20/19 23:22 Dose: Infused Documented by: Metronidazole (Flagyl) 500 mg in 100 mls @ 100 mls/hr IV Q8 [facility] Last Infusion: 03/21/19 05:57 Dose: Infused Documented by: Ondansetron HCl (Zofran) 4 mg IV Q8H PRN PRN PRN Reason: NAUSEA/VOMITING Sodium Chloride () 10 - 40 ml IV UD PRN PRN Reason: SALINE FLUSH Discharge Diet: Light diet - advance as tolerated - if you have questions about your diet instructions, please talk to you doctor., - - Encouraged use of nutritional supplements like Ensure or Sustacal or boost or [employer] instant breakfast drink. Soups and soft pasta encouraged. You may utilize a [id number]-cydcqas probiotic. The use of live culture yogurt also encouraged. The diet may be slowly advanced as your sense of abdominal wellbeing improves Discharge Activity: May Drive, May Shower May shower in (days): 0 Call your doctor if your incision/area has: Continuous Slow Oozing, Sudden Increased Bleeding, Increased Pain/ Swelling, Increased Redness, Foul Smelling Discharge Call your doctor if you observe: Fever of 101 or Higher Suture Line Care: Avoid Pulling/Pushing, Avoid Pinching/Bending Home Medications: Medications to take at Discharge Tamsulosin HCl [Flomax] 0.4 mg PO QHS 10/06/16 Amlodipine [Norvasc] 5 mg PO DAILY 03/19/19 Aspirin E.C. [Ecotrin] 81 mg PO DAILY@0800 03/19/19 Lansoprazole 15 mg PO DAILY 03/19/19 Rosuvastatin Calcium 10 mg PO DAILY 03/19/19 Ciprofloxacin [Cipro] 500 mg PO BID #10 tab 03/21/19 Metronidazole 500 mg PO TID #15 tab 03/21/19 Following Prescrptions Were Given to Patient: Ciprofloxacin [Cipro] 500 mg PO BID #10 tab Transmission Status: Pending to [facility] Metronidazole 500 mg PO TID #15 tab Transmission Status: Pending to [facility] Primary Care Physician: Caridad Grace DO [Primary Care Provider] - Please Follow Up With: Urban Mendoza MD - [phone] When: Call to make an appointment to be seen approximately Sun/ next week. Additional Instructions: There is a interaction between ciprofloxacin your antibiotic that is being prescribed and Flomax which you take. Please hold your Flomax while you are taking the ciprofloxacin. You may then resume the medication when you have completed your antibiotic. Medical Necessity - Tobacco Use Smoking Status: Former smoker Tobacco Use: Cigarettes Meaningful Use Info Meaningful Use Diagnoses (Choose all that apply): None applicable
[2019-03-21 08:00] VITALS: BP 142/87; PULSE 61; RESP 18; TEMP 36.9; O2SAT 98
[2019-03-21] MEDS: Ciprofloxacin 400 MG/200 ML BAG 200 MG IV (10:46)
[2019-03-21] MEDS: Enoxaparin 40 MG/0.4 ML Syringe SC (10:48)
== END 2019-03-21 12:25 | disposition home or self-care (01) | DRG 392 ==
LOC: ED 12:11 → MS3 14:44
PROVIDERS: Family Medicine; Admitting Provider Surgery; Emergency Provider Emergency Medicine; Family Provider Internal Medicine; PCP Internal Medicine; Referring Provider Surgery; Visit Provider Surgery
DX: K57.20 Diverticulitis of large intestine with perforation and abscess without bleeding (principal); I10 Essential (primary) hypertension; N40.0 Benign prostatic hyperplasia without lower urinary tract symptoms; Z87.891 Personal history of nicotine dependence; Z90.49 Acquired absence of other specified parts of digestive tract
CPT/HCPCS: 36415; 74176; 80048; 81001; 85025; 99251; 99284; J7030; A4216; G0463; J0744; J2405

== ENCOUNTER 2019-04-18 05:18 | Day surgery (SDC) | payer MEDICARE, SELFPAY ==
--- NOTE | 2019-03-26 03:54 | HP_ITS ---
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 [Ecotrin] 81 mg PO DAILY@0800 03/19/19 [History Confirmed 03/26/19] Lansoprazole 15 mg PO DAILY 03/19/19 [History Confirmed 03/26/19] Rosuvastatin Calcium 10 mg PO DAILY 03/19/19 [History Confirmed 03/26/19] metronidazole 500 mg tablet 500 mg PO .COMPLEX #6 tab 03/26/19 [Rx Confirmed 03/26/19] neomycin 500 mg tablet 500 mg PO .COMPLEX #6 tab 03/26/19 [Rx Confirmed 03/26/19] PFS Medical History Perforation of sigmoid colon due to diverticulitis (Acute) Hypertension (Chronic) BPH (benign prostatic hyperplasia) (Chronic) Surgical History S/P colectomy (Acute) Social History (Updated 03/26/19 @ 15:55 by Urban Mendoza MD) Smoking Status: Former smoker HPI HPI HPI: EVI RENEE, is a 69 M who presents to the office today for HPI HPI Surgical H&P: Yes HPI: EVI RENEE, is a 69 M who presents to the office today for who I hospitalized at the [facility] from March 19 through March 21, 2019. He had microperforation of the sigmoid colon and presented acutely. White blood cell count was 12,000. He had significant mesenteric inflammatory changes. He was treated with ciprofloxacin and metronidazole. He states that this was the third episode of diverticulitis within a year to year and a half's time. The prior 2 episodes were able to be managed as an outpatient. At the time of discharge he still had some mild abdominal discomfort. He states that it took another 2 or 3 days for resolution. He claims that currently he is not having abdominal pain. He denies fever or chills or sweats. No nausea or vomiting. He has been mostly on a liquid diet since discharge. His most recent colonoscopy he thinks was about 5 years prior. He does not recall a history of polyps. No personal or family history of colon cancer. His CT scan also showed previous evidence of a previous cholecystectomy. He has a 1.8 cm cyst in the left lobe of the liver. Exam Const General: cooperative, healthy appearing, comfortable, no acute distress Nutritional Appearance: average body habitus Orientation: alert, awake, oriented x3 HENMT Head: normal to inspection Resp Effort & Inspection: normal respiratory effort Auscultation: clear to auscultation bilaterally Cardio Rate: regular rate Rhythm: regular rhythm GI Palpation: soft, no hepatosplenomegaly Auscultation: normal bowel sounds Skin General: no rashes or lesions noted Neuro Cognition: normal cognition Extrem General: no calf tenderness bilaterally Psych Affect: normal affect Assessment & Plan Problems 1. Perforation of sigmoid colon due to diverticulitis K57.20 Plan 69-year-old gentleman who has had repeated bouts of diverticulitis. His most recent episode had microperforation and required hospitalization and IV antibiotics. He is very much interested in pursuing attempts at solving the problem of recurrence. He had actually propose to me at the time of his hospitalization consideration for surgery at that time. I propose for him a colonoscopy. This would be with possible biopsy or polypectomy is indicated. Pending any unexpected issues I then propose for him a laparoscopic sigmoid colectomy with primary anastomosis. He is aware of the technique, benefit, risk, alternatives. No guarantees of success have been offered. He would like to schedule and proceed as noted. Cc: Dr. Caridad Mendoza M.D., F.A.C.S. Medications New: neomycin Take two (2) 500 mg tablets PO at 1300, 1500, 2300 6 tabs 0RF pre-op antibiotics metronidazole 500 mg PO Take 2 (two) tablets at 1300, 1500, 2300 6 tabs 0RF Discontinued: ciprofloxacin HCl Discontinued Reason: Order Completed 500 mg PO BID 10 tabs 0RF metronidazole Discontinued Reason: Duplicate Order 500 mg PO TID 15 tabs 0RF Coding Level of Care Code Off vis,est,level 2 Diagnoses Perforation of sigmoid colon due to diverticulitis K57.20 03/26/19 1555 <Electronically signed by Urban verdugo MD> Date _ Urban Mendoza MD I have re-examined the patient. There are no clinical changes since date of exam.
[2019-03-26 14:08] VITALS: BMI 29.4
[2019-04-18] VITALS (7 sets, daily range): BP systolic 106–140; BP diastolic 74–86; PULSE 63–74; RESP 16–18; TEMP 36.2–36.6; O2SAT 97–100; BMI 28.7
[2019-04-18] MEDS: Lactated Ringers 1,000 ML 75 ML IV (06:17)
--- NOTE | 2019-04-18 06:54 | OP.COLON_ITS ---
Patient Name: Tru Tapia Procedure Date: 04/18/2019 6:04 AM Date of : 1950 Age: 69 Procedure: Colonoscopy Indications: Preoperative assessment, Diverticulitis Providers: Urban Mendoza MD Referring MD: Caridad Grace Medicines: See the Anesthesia note for documentation of the administered medications Patient Profile: Last Colonoscopy: 5 years ago. Complications: No immediate complications. Procedure: Pre-Anesthesia Assessment: - Prior to the procedure, a History and Physical was performed, and patient medications and allergies were reviewed. The patient's tolerance of previous anesthesia was also reviewed. The risks and benefits of the procedure and the sedation options and risks were discussed with the patient. All questions were answered, and informed consent was obtained. Prior Anticoagulants: The patient has taken no previous anticoagulant or antiplatelet agents. ASA Grade Assessment: II - A patient with mild systemic disease. After reviewing the risks and benefits, the patient was deemed in satisfactory condition to undergo the procedure. After I obtained informed consent, the scope was passed under direct vision. Throughout the procedure, the patient's blood pressure, pulse, and oxygen saturations were monitored continuously. The Colonoscope was introduced through the anus and advanced to the cecum, identified by appendiceal orifice and ileocecal valve. The colonoscopy was performed without difficulty. The patient tolerated the procedure well. The quality of the bowel preparation was good. The ileocecal valve and the appendiceal orifice were photographed. Scope In: 6:36:29 AM Scope Withdrawal Time 0 hours 6 minutes 16 seconds Scope Out: 6:48:21 AM Total Procedure Duration Time 0 hours 11 minutes 52 seconds Findings: Hemorrhoids were found on perianal exam. Prostate normal Multiple diverticula were found in the sigmoid colon and descending colon. The exam was otherwise without abnormality. Impression: - Hemorrhoids found on perianal exam. - Diverticulosis in the sigmoid colon and in the descending colon. - The examination was otherwise normal. - No specimens collected. Recommendation: - Discharge patient to home. - Resume previous diet. Continue plans for laparoscopic sigmoid colectomy for recurrent diverticulitis - Continue present medications. - Repeat colonoscopy in 10 years for screening purposes. Procedure Code(s): --- Professional --- 34268, Colonoscopy, flexible; diagnostic, including collection of specimen(s) by brushing or washing, when performed (separate procedure) Diagnosis Code(s): --- Professional --- K64.9, Unspecified hemorrhoids Z01.818, Encounter for other preprocedural examination K57.32, Diverticulitis of large intestine without perforation or abscess without bleeding K57.30, Diverticulosis of large intestine without perforation or abscess without bleeding CPT copyright 2017 [employer]. All rights reserved. The codes documented in this report are preliminary and upon dog warden review may be revised to meet current compliance requirements. Urban Mendoza MD 04/18/2019 6:53:54 AM This report has been signed electronically. Number of Addenda: 0 Note Initiated On: 04/18/2019 6:04 AM
--- NOTE | 2019-04-18 06:54 | OP.CCLET_ITS ---
04/18/2019 Caridad Grace [address] [place] [address] Re : Colonoscopy procedure for Tru Tapia Dear Dr. Grace This procedure was performed on Thursday, April 18, 2019. My impressions and recommendations are as follows: Impressions : - Hemorrhoids found on perianal exam. - Diverticulosis in the sigmoid colon and in the descending colon. - The examination was otherwise normal. - No specimens collected. Recommendations : - Discharge patient to home. - Resume previous diet. Continue plans for laparoscopic sigmoid colectomy for recurrent diverticulitis - Continue present medications. - Repeat colonoscopy in 10 years for screening purposes. My findings are described in the full procedure note, which is enclosed. If I can be of further assistance, please feel free to contact me at Doctor phone number(s): Work: . Sincerely, Urban Mendoza MD 04/18/2019 6:53:54 AM This report has been signed electronically.
--- NOTE | 2019-04-22 11:03 | PCM.HP.BLA ---
Problem List (1) Perforation of sigmoid colon due to diverticulitis Status: Acute History and Physical Date of Admission: 04/18/19 MR#: [id number] Acct: [id number] Name: EVI RENEE Rep #: [id number] : 1950 Provider: Urban Mendoza MD Age/Sex: 69/M Location: [facility] Status: Signed Intake Vital Signs 03/26/19 Weight: 180 lb Intake Visit Reasons: Perforation of Sigmoid Colon Diverticulitis Chief Complaint: Diverticulitis Shipping And Receiving Coordinator Required: No Is patient in pain?: No Allergies metoclopramide [From Reglan] Adverse Reaction (Verified 03/26/19 13:44) AGITATION Medications Tamsulosin HCl [Flomax] 0.4 mg PO QHS 10/06/16 [History Confirmed 03/26/19] Amlodipine [Norvasc] 5 mg PO DAILY 03/19/19 [History Confirmed 03/26/19] Aspirin E.C. [Ecotrin] 81 mg PO DAILY@0800 03/19/19 [History Confirmed 03/26/19] Lansoprazole 15 mg PO DAILY 03/19/19 [History Confirmed 03/26/19] Rosuvastatin Calcium 10 mg PO DAILY 03/19/19 [History Confirmed 03/26/19] metronidazole 500 mg tablet 500 mg PO .COMPLEX #6 tab 03/26/19 [Rx Confirmed 03/26/19] neomycin 500 mg tablet 500 mg PO .COMPLEX #6 tab 03/26/19 [Rx Confirmed 03/26/19] PFSH Medical History Perforation of sigmoid colon due to diverticulitis (Acute) Hypertension (Chronic) BPH (benign prostatic hyperplasia) (Chronic) Surgical History S/P colectomy (Acute) Social History (Updated 03/26/19 @ 15:55 by Urban Mendoza MD) Smoking Status: Former smoker HPI HPI HPI: EVI RENEE, is a 69 M who presents to the office today for HPI HPI Surgical H&P: Yes HPI: EVI RENEE, is a 69 M who presents to the office today for who I hospitalized at the [facility] from March 19 through March 21, 2019. He had microperforation of the sigmoid colon and presented acutely. White blood cell count was 12,000. He had significant mesenteric inflammatory changes. He was treated with ciprofloxacin and metronidazole. He states that this was the third episode of diverticulitis within a year to year and a half's time. The prior 2 episodes were able to be managed as an outpatient. At the time of discharge he still had some mild abdominal discomfort. He states that it took another 2 or 3 days for resolution. He claims that currently he is not having abdominal pain. He denies fever or chills or sweats. No nausea or vomiting. He has been mostly on a liquid diet since discharge. His most recent colonoscopy he thinks was about 5 years prior. He does not recall a history of polyps. No personal or family history of colon cancer. His CT scan also showed previous evidence of a previous cholecystectomy. He has a 1.8 cm cyst in the left lobe of the liver. Exam Const General: cooperative, healthy appearing, comfortable, no acute distress Nutritional Appearance: average body habitus Orientation: alert, awake, oriented x3 HENMT Head: normal to inspection Resp Effort & Inspection: normal respiratory effort Auscultation: clear to auscultation bilaterally Cardio Rate: regular rate Rhythm: regular rhythm GI Palpation: soft, no hepatosplenomegaly Auscultation: normal bowel sounds Skin General: no rashes or lesions noted Neuro Cognition: normal cognition Extrem General: no calf tenderness bilaterally Psych Affect: normal affect Assessment & Plan Problems 1. Perforation of sigmoid colon due to diverticulitis K57.20 Plan 69-year-old gentleman who has had repeated bouts of diverticulitis. His most recent episode had microperforation and required hospitalization and IV antibiotics. He is very much interested in pursuing attempts at solving the problem of recurrence. He had actually propose to me at the time of his hospitalization consideration for surgery at that time. I propose for him a colonoscopy. This would be with possible biopsy or polypectomy is indicated. Pending any unexpected issues I then propose for him a laparoscopic sigmoid colectomy with primary anastomosis. He is aware of the technique, benefit, risk, alternatives. No guarantees of success have been offered. He would like to schedule and proceed as noted. Cc: Dr. Caridad Mendoza M.D., F.A.C.S. Medications New: neomycin Take two (2) 500 mg tablets PO at 1300, 1500, 2300 6 tabs 0RF pre-op antibiotics metronidazole 500 mg PO Take 2 (two) tablets at 1300, 1500, 2300 6 tabs 0RF Discontinued: ciprofloxacin HCl Discontinued Reason: Order Completed 500 mg PO BID 10 tabs 0RF metronidazole Discontinued Reason: Duplicate Order 500 mg PO TID 15 tabs 0RF Coding Level of Care Code Off vis,est,level 2 Diagnoses Perforation of sigmoid colon due to diverticulitis K57.20 03/26/19 1555 <Electronically signed by Urban Mendoza MD> Date Urban Mendoza MD Cosigner Signature: Date (if applicable) CC: Caridad Grace DO ~ Apparently there was electronic error with Verid. The previously updated history and physical done on the day of the procedure was canceled. I have re-examined the patient. There are no clinical changes since date of exam. Urban Mendoza M.D., F.A.C.S.
== END 2019-04-18 07:24 | disposition home or self-care (01) ==
LOC: EN 05:19 → AC 05:39
PROVIDERS: PCP Internal Medicine; Referring Provider Internal Medicine; Visit Provider Surgery
PROC: 0DJD8ZZ Inspection of Lower Intestinal Tract, Via Natural or Artificial Opening Endoscopic (ICD-10-PCS; CPT 45378; principal; 2019-04-18 06:25)
DX: K64.9 Unspecified hemorrhoids (principal); K57.32 Diverticulitis of large intestine without perforation or abscess without bleeding; K57.30 Diverticulosis of large intestine without perforation or abscess without bleeding; Z79.82 Long term (current) use of aspirin; Z87.891 Personal history of nicotine dependence; Z88.8 Allergy status to other drugs, medicaments and biological substances; Z90.49 Acquired absence of other specified parts of digestive tract
CPT/HCPCS: 45378; J7120

== ENCOUNTER 2019-04-23 05:21 | Inpatient (IN) | payer MEDICARE, OTHER, SELFPAY ==
--- NOTE | 2019-03-26 03:54 | HP_ITS ---
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 [Ecotrin] 81 mg PO DAILY@0800 03/19/19 [History Confirmed 03/26/19] Lansoprazole 15 mg PO DAILY 03/19/19 [History Confirmed 03/26/19] Rosuvastatin Calcium 10 mg PO DAILY 03/19/19 [History Confirmed 03/26/19] metronidazole 500 mg tablet 500 mg PO .COMPLEX #6 tab 03/26/19 [Rx Confirmed 03/26/19] neomycin 500 mg tablet 500 mg PO .COMPLEX #6 tab 03/26/19 [Rx Confirmed 03/26/19] PFS Medical History Perforation of sigmoid colon due to diverticulitis (Acute) Hypertension (Chronic) BPH (benign prostatic hyperplasia) (Chronic) Surgical History S/P colectomy (Acute) Social History (Updated 03/26/19 @ 15:55 by Urban Mendoza MD) Smoking Status: Former smoker HPI HPI HPI: EVI RENEE, is a 69 M who presents to the office today for HPI HPI Surgical H&P: Yes HPI: EVI RENEE, is a 69 M who presents to the office today for who I hospitalized at [facility] from March 19 through March 21, 2019. He had microperforation of the sigmoid colon and presented acutely. White blood cell count was 12,000. He had significant mesenteric inflammatory changes. He was treated with ciprofloxacin and metronidazole. He states that this was the third episode of diverticulitis within a year to year and a half's time. The prior 2 episodes were able to be managed as an outpatient. At the time of discharge he still had some mild abdominal discomfort. He states that it took another 2 or 3 days for resolution. He claims that currently he is not having abdominal pain. He denies fever or chills or sweats. No nausea or vomiting. He has been mostly on a liquid diet since discharge. His most recent colonoscopy he thinks was about 5 years prior. He does not recall a history of polyps. No personal or family history of colon cancer. His CT scan also showed previous evidence of a previous cholecystectomy. He has a 1.8 cm cyst in the left lobe of the liver. Exam Const General: cooperative, healthy appearing, comfortable, no acute distress Nutritional Appearance: average body habitus Orientation: alert, awake, oriented x3 HENMT Head: normal to inspection Resp Effort & Inspection: normal respiratory effort Auscultation: clear to auscultation bilaterally Cardio Rate: regular rate Rhythm: regular rhythm GI Palpation: soft, no hepatosplenomegaly Auscultation: normal bowel sounds Skin General: no rashes or lesions noted Neuro Cognition: normal cognition Extrem General: no calf tenderness bilaterally Psych Affect: normal affect Assessment & Plan Problems 1. Perforation of sigmoid colon due to diverticulitis K57.20 Plan 69-year-old gentleman who has had repeated bouts of diverticulitis. His most recent episode had microperforation and required hospitalization and IV antibiotics. He is very much interested in pursuing attempts at solving the problem of recurrence. He had actually propose to me at the time of his hospitalization consideration for surgery at that time. I propose for him a colonoscopy. This would be with possible biopsy or polypectomy is indicated. Pending any unexpected issues I then propose for him a laparoscopic sigmoid colectomy with primary anastomosis. He is aware of the technique, benefit, risk, alternatives. No guarantees of success have been offered. He would like to schedule and proceed as noted. Cc: Dr. Caridad Mendoza M.D., F.A.C.S. Medications New: neomycin Take two (2) 500 mg tablets PO at 1300, 1500, 2300 6 tabs 0RF pre-op antibiotics metronidazole 500 mg PO Take 2 (two) tablets at 1300, 1500, 2300 6 tabs 0RF Discontinued: ciprofloxacin HCl Discontinued Reason: Order Completed 500 mg PO BID 10 tabs 0RF metronidazole Discontinued Reason: Duplicate Order 500 mg PO TID 15 tabs 0RF Coding Level of Care Code Off vis,est,level 2 Diagnoses Perforation of sigmoid colon due to diverticulitis K57.20 03/26/19 1555 <Electronically signed by Urban verdugo MD> Date _ Urban Mendoza MD
[2019-03-26 14:08] VITALS: BMI 29.4
[2019-04-16 10:12] VITALS: BP 134/78; PULSE 83; RESP 16; TEMP 36.4; O2SAT 98; BMI 29.3
--- NOTE | 2019-04-16 10:30 | SDCEKG_ITS ---
Test Reason : Blood Pressure : / mmHG Vent. Rate : 062 BPM Atrial Rate : 062 BPM P-R Int : 192 ms QRS Dur : 082 ms QT Int : 384 ms P-R-T Axes : 062 054 044 degrees QTc Int : 389 ms Normal sinus rhythm Normal ECG Confirmed by DAVID BAKER, ALLI ([id number]), scrap drop operator DOROTA PRUITT ([id number]) on 04/21/2019 10:48:32 AM Referred By: Urban Mendzoa Confirmed By:PROMISE HERNANDEZ MD
[2019-04-16 11:06] LABS: Absolute Lymphocyte Count 1.32 X10^3/uL (0.83-4.51); Absolute Neutrophil Count 5.1 X10^3/uL (2.0-7.7); Basophil# 0.04 X10^3/uL; Basophil% 0.6 % (0-1); Eosinophil# 0.08 X10^3/uL; Eosinophils% 1.1 % (0-5); Hematocrit 42.3 % (40-54); Lymphocyte # 1.32 X10^3/ul (4.0); Lymphocyte % 18.8 % (19-41); Mean Corp Hgb Conc 33.1 g/dL (32-36); Mean Corpuscular Hgb 28.7 pg (27.0-32.0); Mean Corpuscular Volume 86.7 fL (80-94); Monocyte# 0.51 X10^3/uL; Monocyte% 7.3 % (0-10); NRBC Flagged by Analyzer 0 % (0-5); Neutrophil # 5.06 X10^3/uL (2.7-7.7); Neutrophil % 71.9 % (47-70); Platelet Count 242 K/mm3 (150-450); RBC Distribution Width CV 12.8 % (11.6-14.6); RBC Distribution Width SD 40.2 fl (35.1-43.9); Red Blood Count 4.88 M/mm3 (4.6-6.2)
[2019-04-16 11:29] LABS: Anion Gap 4 (5-15); BUN 12 mg/dL (7-18); Calcium,Total 9.8 mg/dL (8.5-10.1); Chloride 105 mmol/L (98-107); Creatinine, Serum 0.93 mg/dL (0.70-1.30); EST Glomerular Filtration Rate 86 mL/min (>60); Est Glom Filt Rate - Afr Amer 104 mL/min (>60); Estimated Creatinine Clearance 70.09 ml/min; Glucose 98 mg/dL (74-106); Potassium 4.3 mmol/L (3.5-5.1); Sodium Level 139 mmol/L (136-145)
[2019-04-18 06:01] VITALS: BMI 28.7
[2019-04-23] VITALS (13 sets, daily range): BP systolic 101–138; BP diastolic 49–79; PULSE 70–93; RESP 16–18; TEMP 36.2–37.1; O2SAT 93–100; BMI 29.3; BMI 28.5
--- NOTE | 2019-04-23 05:46 | HP.PCM_ITS ---
Problem List (1) Perforation of sigmoid colon due to diverticulitis Status: Acute History and Physical Date of Admission: 04/23/19 Intake Visit Reasons: Perforation of Sigmoid Colon Diverticulitis Chief Complaint: Diverticulitis Brief Writer Required: No Is patient in pain?: No Allergies metoclopramide [From Reglan] Adverse Reaction (Verified 03/26/19 13:44) AGITATION Medications Tamsulosin HCl [Flomax] 0.4 mg PO QHS 10/06/16 [History Confirmed 03/26/19] Amlodipine [Norvasc] 5 mg PO DAILY 03/19/19 [History Confirmed 03/26/19] Aspirin E.C. [Ecotrin] 81 mg PO DAILY@0800 03/19/19 [History Confirmed 03/26/19] Lansoprazole 15 mg PO DAILY 03/19/19 [History Confirmed 03/26/19] Rosuvastatin Calcium 10 mg PO DAILY 03/19/19 [History Confirmed 03/26/19] metronidazole 500 mg tablet 500 mg PO .COMPLEX #6 tab 03/26/19 [Rx Confirmed 03/26/19] neomycin 500 mg tablet 500 mg PO .COMPLEX #6 tab 03/26/19 [Rx Confirmed 03/26/19] PFSH Medical History Perforation of sigmoid colon due to diverticulitis (Acute) Hypertension (Chronic) BPH (benign prostatic hyperplasia) (Chronic) Surgical History S/P colectomy (Acute) Social History (Updated 03/26/19 @ 15:55 by Urban Mendoza MD) Smoking Status: Former smoker HPI HPI HPI: EVI RENEE, is a 69 M who presents to the office today for HPI HPI Surgical H&P: Yes HPI: EVI RENEE, is a 69 M who presents to the office today for who I hospitalized at the [facility] from March 19 through March 21, 2019. He had microperforation of the sigmoid colon and presented acutely. White blood cell count was 12,000. He had significant mesenteric inflammatory changes. He was treated with ciprofloxacin and metronidazole. He states that this was the third episode of diverticulitis within a year to year and a half's time. The prior 2 episodes were able to be managed as an outpatient. At the time of discharge he still had some mild abdominal discomfort. He states that it took another 2 or 3 days for resolution. He claims that currently he is not having abdominal pain. He denies fever or chills or sweats. No nausea or vomiting. He has been mostly on a liquid diet since discharge. His most recent colonoscopy he thinks was about 5 years prior. He does not recall a history of polyps. No personal or family history of colon cancer. His CT scan also showed previous evidence of a previous cholecystectomy. He has a 1.8 cm cyst in the left lobe of the liver. Exam Const General: cooperative, healthy appearing, comfortable, no acute distress Nutritional Appearance: average body habitus Orientation: alert, awake, oriented x3 HENMT Head: normal to inspection Resp Effort & Inspection: normal respiratory effort Auscultation: clear to auscultation bilaterally Cardio Rate: regular rate Rhythm: regular rhythm GI Palpation: soft, no hepatosplenomegaly Auscultation: normal bowel sounds Skin General: no rashes or lesions noted Neuro Cognition: normal cognition Extrem General: no calf tenderness bilaterally Psych Affect: normal affect Assessment & Plan Problems 1. Perforation of sigmoid colon due to diverticulitis K57.20 Plan 69-year-old gentleman who has had repeated bouts of diverticulitis. His most recent episode had microperforation and required hospitalization and IV antibiotics. He is very much interested in pursuing attempts at solving the problem of recurrence. He had actually propose to me at the time of his hospitalization consideration for surgery at that time. I propose for him a colonoscopy. This would be with possible biopsy or polypectomy is indicated. Pending any unexpected issues I then propose for him a laparoscopic sigmoid colectomy with primary anastomosis. He is aware of the technique, benefit, risk, alternatives. No guarantees of success have been offered. He would like to schedule and proceed as noted. Cc: Dr. Caridad Mendoza M.D., F.A.C.S. Medications New: neomycin Take two (2) 500 mg tablets PO at 1300, 1500, 2300 6 tabs 0RF pre-op antibiotics metronidazole 500 mg PO Take 2 (two) tablets at 1300, 1500, 2300 6 tabs 0RF Discontinued: ciprofloxacin HCl Discontinued Reason: Order Completed 500 mg PO BID 10 tabs 0RF metronidazole Discontinued Reason: Duplicate Order 500 mg PO TID 15 tabs 0RF Coding Level of Care Code Off vis,est,level 2 Diagnoses Perforation of sigmoid colon due to diverticulitis K57.20 03/26/19 1555 <Electronically signed by Urban verdugo MD> Date _ Urban Mendoza MD I have re-examined the patient. There are no clinical changes since date of exam.
[2019-04-23] MEDS: Lactated Ringers 1,000 ML 40 ML IV ×4 (06:18→11:46)
[2019-04-23] MEDS: Magnesium Sulfate 4gm/100mL 4 GM/100 ML IV.SOLN. IV (06:19)
[2019-04-23] MEDS: Acetaminophen 500 MG Tablet 1000 MG PO ×4 (06:36→23:39)
[2019-04-23] MEDS: Gabapentin 600 MG Tablet PO (06:36)
[2019-04-23] MEDS: Lactated Ringers 1,000 ML 100 ML IV (06:37)
[2019-04-23 06:45] LABS: Bedside Glucose 109 mg/dL (70-110)
--- NOTE | 2019-04-23 07:15 | COLBX_PTH ---
PATIENT: EVI RENEE LOC: MS3 U#:[id number] AGE/SX: 69/M ROOM: MS309 RE04/23/[address]: Dr. Urban Mendoza MD : 1950 BED: 1 DIS: 04/24/2019 SPEC #: [id number] RECD: 04/23/19 15:49 STATUS: DEMETRIO REDarren #: [id number] VANDANA: 04/23/19 07:[address]: Urban Mendoza DEPT: SURGICAL PATHOLOGY RECD BY: Elle Parnell ENTERED: 04/23/19 15:51 SP TYPE: COLON BX OTHR DR: Dr. Caridad Grace DO Tissues: A - Sigmoid colon biopsy B - Colon Donuts C - Colon Donuts Procedures: Surgery Specimen Level IV Surgery Specimen Level V HEADER OPERATION: ERAS, laparoscopic sigmoid colectomy PRE-OP DIAGNOSIS: Perforation of sigmoid colon due to diverticulitis TISSUE SUBMITTED: A - Sigmoid colon, B - Proximal donut, C - Distal donut MICROSCOPIC DIAGNOSIS A. Sigmoid colon, segmental colectomy: Diverticular disease of colon with focal microabscess consistent with rupture. Margins of excision with no pathologic change. Two out of two lymph nodes with no pathologic change. See comment. B. Proximal mucosal donut, excision: No pathologic change. C. Distal mucosal donut, excision: No pathologic change. AM:austin 04/25/19 COMMENT A. No perforation through to the serosal surface is identified. MICROSCOPIC DESCRIPTION Slides are reviewed. GROSS DESCRIPTION A - Received in fixative is one container labeled with the patient's name and designated sigmoid colon. The specimen consists of a 12 cm segment of colon with attached fibrofatty tissue. No gross perforations are identified. Serial sections reveal a number of diverticula. None of these appear to have perforated through the bowel wall. The attached fibrofatty tissue contains a number of grossly unremarkable nodules resembling lymph nodes. Distribution Dispatcher sections are submitted as follows: 1 - mucosal margins (margin without staple inked in black), 2-4 - diverticula, 5 - wire rope sales representative lymph nodes. / AM:austin 04/24/19 B - Received in fixative is one container labeled with the patient's name and designated proximal donut. The specimen consists of a donut-shaped piece of colonic tissue measuring 2.5 x 2 x 1.5 cm. Multiple sutures are noted. Distribution Dispatcher sections are submitted in one cassette. / SJ:austin 04/23/19 C - Received in fixative is one container labeled with the patient's name and designated distal donut. The specimen consists of a donut-shaped piece of colonic tissue measuring 2 x 2 x 1 cm. Multiple eagle are noted. The mucosa is congested. Distribution Dispatcher sections are submitted in one cassette. / SJ:austin 04/23/19 TC:5 CPT: 76302, 77681 x2
--- NOTE | 2019-04-23 07:25 | DCINST_ITS ---
Discharge Diet: Light diet - advance as tolerated - if you have questions about your diet instructions, please talk to you doctor. Discharge Activity: May Not Drive - for 1 week or while taking narcotic pain medicine. May shower in (days): 1 Lifting Restrictions: 10 pounds Call your doctor if your incision/area has: Continuous Slow Oozing, Sudden Increased Bleeding, Increased Pain/ Swelling, Increased Redness, Foul Smelling Discharge Call your doctor if you observe: Fever of 101 or Higher Suture Line Care: Avoid Pulling/Pushing, Avoid Pinching/Bending Additional Dressing/Incision Instructions:: Change or remove dressing in 3 days. Leave steri-strips in place for 1 week. Allergies/Adverse Reactions: Allergies metoclopramide [From Reglan] Adverse Reaction (Verified 04/23/19 06:02) AGITATION AGITATION Medications to take at Discharge Tamsulosin HCl [Flomax] 0.4 mg PO QHS 10/06/16 Amlodipine [Norvasc] 5 mg PO DAILY 03/19/19 Aspirin E.C. [Ecotrin] 81 mg PO DAILY@0800 03/19/19 Lansoprazole 15 mg PO DAILY 03/19/19 Rosuvastatin Calcium 10 mg PO DAILY 03/19/19 neomycin 500 mg tablet 500 mg PO .COMPLEX #6 tab 03/26/19 Metronidazole 500 mg PO .COMPLEX 04/16/19 Primary Care Physician: Caridad Grace DO [Primary Care Provider] - Test Results: Test results from this visit will be discussed in further detail at your follow- up appointment, if applicable. Please Follow Up With: Urban Mendoza MD - [phone] When: Call to make an appointment to be seen in about 10 days.
[2019-04-23] MEDS: Lidocaine/D5W 2,000 MG/250 ML IV.SOLN 25.5 MG IV (07:35)
[2019-04-23] MEDS: Lubricating Jelly 60 GM Tube 30 GM TOPICAL (08:33)
[2019-04-23] MEDS: 0.9% Normal Saline (Pres. free 10 ML Vial (09:45)
[2019-04-23] MEDS: BUPIVACAINE LIPOSOME/PF 20 ML VIAL OPERA.SITE (09:45)
[2019-04-23] MEDS: Bupivacaine 0.25% 30 ML Vial (09:45)
--- NOTE | 2019-04-23 10:03 | PCM.OPRPT ---
Problem List (1) Perforation of sigmoid colon due to diverticulitis Status: Acute Report of Operation Date of Procedure: 04/23/19 Pre-Operative Diagnosis: History of sigmoid colon diverticular perforation Post-Operative Diagnosis: History of sigmoid diverticular perforation with residual intra-abdominal omental adhesions and anterior abdominal wall adhesions Surgery/Procedure Performed:: Laparoscopic sigmoid colectomy with lysis of adhesions Description of Surgical Findings:: Timeout informed consent was obtained. 69-year-old gentleman was taken out from placement table underwent general endotracheal intubation anesthesia. He was placed in a low lithotomy position on a beanbag. 2 g of cefotetan were given intravenously. Foreman catheter was placed. The abdomen perineum was sterilely prepped and draped. Ioban draping was used as well. 20 cc of Exparel mixed with 60 cc of 0.25% Marcaine mixed with 20 cc of saline was used as local anesthetic. Skin sites were pre-anesthetized. To the right of the umbilicus I used a 5 mm Visiport technology to get clean access to the abdomen. The abdomen is insufflated CO2 to a pressure of 10 mmHg pressure. 5 monitor trocar inserted and a 5 Greenfield laparoscope inserted. No concern trocar injuries. Multiple adhesions of omentum to the anterior abdominal wall in the low midline and there was adherence of the sigmoid colon to the anterior bowel wall as well as to the left pelvic sidewall. 2 additional 5 Greenfield ports were placed in the right lower quadrant. The omentum was dissected free from the anterior abdominal wall using Enseal device as well as sharp dissection were indicated. I then freed the sigmoid from the left pelvic sidewall using sharp dissection taking great care to stay clear of the course of the ureter and closely adjacent to the bowel wall. I was then able to mobilize the sigmoid colon down to the peritoneal reflection and transected the mesentery with the Enseal. Was able to incised the white line of Toldt to allow for mobilization of the proximal sigmoid and descending colon. Having achieved that I made a small Pfannenstiel incision suprapubically dissected down through the substance tissue transected the anterior rectus sheath transversely got access vertically through the musculature. I placed a 10 mm trocar. I was then able to use a 45 mm [place] to transect the rectum with one firing. Then completed by Pfannenstiel incision placed a wound protector exited the sigmoid colon dissected free the mesentery up to the sigmoid colon used a [place] clamp to transected I placed a whip suture of 2-0 Prolene. Placed a 33 mm circular anastomotic anvil secured that with the pursestring and then resecured it. Dabbed with Betadine drop that back within the abdomen. The rectum was then irrigated and then generous lubrication was used to insert the stapler. The trocar exited mid staple line. It was easily mated to the anvil the 2 were approximated under direct visualization absolutely no tension. The device was subsequently fired and then released and removed. The donuts were inspected and there were noted to be completely intact. The bowel was carefully secured and fluids placed in the pelvis and a rigid sigmoidoscope was inserted and air was insufflated there was absolutely no air leak. The pelvis was then irrigated and aspirated free. Hemostasis was nicely intact. The greater omentum was placed overlying. A bilateral tap block was now performed under laparoscopic visualization and this was done with the local mixture. Trochars removed under visualization the abdomen was allowed to deflate of the CO2. The peritoneum suprapubically was closed with a running 0 Vicryl. The fascia was closed with a running 0 PDS. That callie-incisional fascial tissue was treated with the local anesthetic as well. Wound edges were then approximated with running or simple subcuticular 4-0 Monocryl. Steri-Strips Telfa OpSite dressings applied. Sponge and instrument and needle counts were reported to the surgeon to be correct. Specimens sigmoid colon and donuts. Drains none. Blood loss quite minimal. The patient was taken to the recovery area in satisfactory edition without apparent complication. Urban Mendoza M.D., F.A.C.S. Type of Anesthesia:: General Anesthesiologist: Andreina Chen
[2019-04-23] MEDS: Docusate Sodium 100 MG Capsule PO ×2 (13:20→20:49)
[2019-04-23] MEDS: 0.9% Saline Lock 10 ML Syringe IV ×3 (13:21→23:44)
[2019-04-23] MEDS: Ketorolac 15 MG/ML Vial IV ×3 (13:21→23:39)
--- NOTE | 2019-04-23 17:59 | PCM.PN.BLA ---
Progress Note Doing well, comfortable Ambulating Will remove elena in a.m. STROKE Vital Signs/Narrative: Vital Signs Temp Pulse Resp BP Pulse Ox 04/23/19 16:19 97.4 F L 93 16 138/69 H 96 04/23/19 15:25 96 04/23/19 14:45 97.1 F L 85 16 119/70 93
--- NOTE | 2019-04-23 19:52 | NURSING ---
pt walked two full laps in the petersen with the help of the CRNP. Pt tolerated well.
[2019-04-23] MEDS: Atorvastatin Calcium 20 MG Tablet PO (20:49)
[2019-04-23] MEDS: Tamsulosin HCl 0.4 MG Capsule PO (20:49)
[2019-04-24 03:06] VITALS: BP 105/56; PULSE 73; RESP 16; TEMP 36.7; O2SAT 96
[2019-04-24 05:34] LABS: Hematocrit 33.1 % (40-54); Hemoglobin 10.9 g/dL (13.0-16.5); Mean Corp Hgb Conc 32.9 g/dL (32-36); Mean Corpuscular Hgb 28.7 pg (27.0-32.0); Mean Corpuscular Volume 87.1 fL (80-94); Mean Platelet Vol. 9.9 fl (6.2-12.0); Platelet Count 216 K/mm3 (150-450); RBC Distribution Width CV 12.8 % (11.6-14.6); RBC Distribution Width SD 40.4 fl (35.1-43.9); White Blood Count 10.2 K/mm3 (4.4-11.0)
[2019-04-24] MEDS: Ketorolac 15 MG/ML Vial IV ×2 (05:42→11:20)
[2019-04-24] MEDS: 0.9% Saline Lock 10 ML Syringe IV ×2 (05:43→11:20)
[2019-04-24 05:53] LABS: Anion Gap 4 (5-15); BUN 11 mg/dL (7-18); BUN/Creat Ratio 11.2 RATIO (10-20); Calcium,Total 8.6 mg/dL (8.5-10.1); Chloride 105 mmol/L (98-107); Creatinine, Serum 0.98 mg/dL (0.70-1.30); EST Glomerular Filtration Rate 80 mL/min (>60); Est Glom Filt Rate - Afr Amer 97 mL/min (>60); Estimated Creatinine Clearance 66.51 ml/min; Glucose 107 mg/dL (74-106); Potassium 4.3 mmol/L (3.5-5.1); Sodium Level 137 mmol/L (136-145)
[2019-04-24] MEDS: Acetaminophen 500 MG Tablet 1000 MG PO ×2 (06:37→13:21)
--- NOTE | 2019-04-24 07:19 | PCM.PN.SRG ---
Subjective: Patient without complaints. Mild low abdominal soreness. No flatus or stool yet. No nausea. Tolerating clear liquids - Physical Exam Vitals/I&O's: Vital Signs Temp Pulse Resp BP Pulse Ox 98.1 F 73 16 105/56 L 96 04/24/19 03:06 04/24/19 03:06 04/24/19 03:06 04/24/19 03:06 04/24/19 03:06 Oxygen Flow Rate (L/min) 6 Oxygen Delivery Method Room Air Weight: 182 lb Body Mass Index (BMI) 28.5 Finger Stick Blood Glucose 109 Intake and Output for Last 24 Hours 04/22/19 04/23/19 04/24/19 23:59 23:59 23:59 Intake Total 5359.85 / 5929.85 700 / 700 Output Total 1650 / 2150 975 / 975 Balance 3709.85 / 3779.85 -275 / -275 Abdomen: Soft, Non Tender, Hypoactive Bowel Sounds Laboratory Results 04/24/19 05:26: WBC 10.2, RBC 3.80 L, Hgb 10.9 L, Hct 33.1 L, MCV 87.1, MCH 28.7, MCHC 32.9, RDW Std Deviation 40.4, RDW Coeff of Bradley 12.8, Plt Count 216, MPV 9.9 04/24/19 05:26: Sodium 137, Potassium 4.3, Chloride 105, Carbon Dioxide 28.0, Anion Gap 4 L, BUN 11, Creatinine 0.98, Estim Creat Clear Calc 66.51, Est GFR (MDRD) Af Amer 97, Est GFR (MDRD) Non-Af 80, BUN/Creatinine Ratio 11.2, Glucose 107 H, Calcium 8.6 Current Medications Acetaminophen (Tylenol) 1,000 mg PO Q6 [facility] Last Admin: 04/24/19 06:37 Dose: 1,000 mg Documented by: Amlodipine Besylate (Norvasc) 5 mg PO DAILY [facility] Atorvastatin Calcium (Lipitor) 20 mg PO QHS [facility] Last Admin: 04/23/19 20:49 Dose: 20 mg Documented by: Docusate Sodium (Colace) 100 mg PO BID [facility] Last Admin: 04/23/19 20:49 Dose: 100 mg Documented by: Enoxaparin Sodium (Lovenox) 40 mg SC DAILY [facility] Hydromorphone HCl (Dilaudid Inj) 0.5 mg IV Q3H PRN PRN PRN Reason: Pain Score 6-10/10 Sodium Chloride () 250 mls @ 15 mls/hr IV .[id number] PRN PRN Reason: Saline Flush Ketorolac Tromethamine (Toradol (Bkc)) 15 mg IV Q6 [facility] Stop: 04/24/19 18:01 Last Admin: 04/24/19 05:42 Dose: 15 mg Documented by: Magnesium Oxide (Mag-Ox 400) 400 mg PO DAILY PRN PRN PRN Reason: Constipation Nutritional Formula (Lactose Free) (Ensure Enlive) 120 ml PO 4X/DAY [facility] Last Admin: 04/23/19 20:47 Dose: Not Given Documented by: Ondansetron HCl (Zofran Odt) 4 mg PO Q6H PRN PRN PRN Reason: NAUSEA Ondansetron HCl (Zofran) 4 mg IV Q8H PRN PRN PRN Reason: NAUSEA Oxycodone HCl (Oxyir) 5 - 10 mg PO Q4H PRN PRN PRN Reason: Pain Score 4-10/10 Pantoprazole Sodium (Protonix) 20 mg PO DAILY [facility] Sodium Chloride () 10 - 40 ml IV UD PRN PRN Reason: SALINE FLUSH Last Admin: 04/24/19 05:43 Dose: 10 ml Documented by: Tamsulosin HCl (Flomax) 0.4 mg PO QHS [facility] Last Admin: 04/23/19 20:49 Dose: 0.4 mg Documented by: Medical Necessity - Tobacco Use Smoking Status: Former smoker Tobacco Use: Non-smoker Assessment/Plan All Active Problems (Last Reviewed 03/26/19 @ 13:45 by Brenda Pascual) Perforation of sigmoid colon due to diverticulitis (Acute) Excellent progress. We will initiate transitional diet. Will remove Foreman. Will reassess progress later today. Urban Mendoza M.D., F.A.C.S.
[2019-04-24 07:24] VITALS: BP 131/65; PULSE 79; RESP 18; TEMP 36.6; O2SAT 96
[2019-04-24] MEDS: Enoxaparin 40 MG/0.4 ML Syringe SC (08:54)
[2019-04-24] MEDS: Docusate Sodium 100 MG Capsule PO (08:55)
[2019-04-24] MEDS: Pantoprazole Sodium 20 MG Tablet PO (08:55)
[2019-04-24] MEDS: amLODIPine 5 MG Tablet PO (08:55)
[2019-04-24 09:39] VITALS: O2SAT 96
--- NOTE | 2019-04-24 10:30 | CASEMGMT ---
RN CM Face to Face with patient for initial transition planning/care coordination assessment. RN CM introduced self and role at [facility]. Patient sitting in chair, alert and oriented. Patient willing to participate in assessment and is able to answer all questions appropriately. Care providers, pharmacy, and demographics verified. Patient wishes to discharge home, denies need for home health at this time. Patient states he has no further needs or concerns at this time. CM to follow for discharge planning needs that may arise. PCP: Lesly Specialists: jeanette Bui; Kelly, surgeon Preferred Pharmacy: [facility] to get scripts filled at [facility] retail Insurance: [employer] [facility] Prescription Benefit: yes Living Will/HPOA: none LNOK: Living Arrangements: Patient lives with in 2 story home. Patient is independent and able to ambulate stairs. Transportation: self/ DME/HHC: Patient denies any DME or previous HHC. Disposition Plan: Patient to discharge home with family support and follow-up plans in place. Karen MACIEL, RN, CM
[2019-04-24 10:52] VITALS: BP 106/62; PULSE 63; RESP 16; TEMP 36.5; O2SAT 100
--- NOTE | 2019-04-24 13:19 | NURSING ---
pt to bathroom, passed gas and had small bm. pt unable to void. bladder scanned for 138cc
== END 2019-04-24 14:52 | disposition home or self-care (01) | DRG 331 ==
LOC: ACINP 05:25 → MS3 04-24 06:29
PROVIDERS: Admitting Provider Surgery; PCP Internal Medicine; Referring Provider Surgery; Visit Provider Surgery
PROC: 0DTN0ZZ Resection of Sigmoid Colon, Open Approach (ICD-10-PCS; CPT 44204; principal; 2019-04-23 06:50)
DX: K57.20 Diverticulitis of large intestine with perforation and abscess without bleeding (principal); N40.0 Benign prostatic hyperplasia without lower urinary tract symptoms; I10 Essential (primary) hypertension; K66.0 Peritoneal adhesions (postprocedural) (postinfection); Z87.891 Personal history of nicotine dependence; Z90.49 Acquired absence of other specified parts of digestive tract
CPT/HCPCS: 36415; 80048; 82962; 85025; 85027; 88304; 88305; 88307; 93005; 94762; 99251; J7050; J7120; A4216; C1760; G0463; J2405; J3490

== ENCOUNTER 2022-07-13 18:17 | Emergency (ER) | payer MEDICARE, OTHER, SELFPAY ==
[2022-07-13 18:19] VITALS: BP 150/77; PULSE 82; RESP 19; TEMP 36.1; O2SAT 98; BMI 31.7
--- NOTE | 2022-07-13 18:39 | EKG12_ITS ---
Test Reason : CP Blood Pressure : / mmHG Vent. Rate : 073 BPM Atrial Rate : 073 BPM P-R Int : 192 ms QRS Dur : 084 ms QT Int : 366 ms P-R-T Axes : 067 046 033 degrees QTc Int : 403 ms Normal sinus rhythm Normal ECG Confirmed by DAVID BAKER, ALLI ([id number]), film and video editor SID ROBERSON ([id number]) on 07/17/2022 2:31:30 PM Referred By: OLENA Confirmed By:PROMISE HERNANDEZ MD
--- NOTE | 2022-07-13 18:40 | EDS_ITS ---
HPI History of Present Illness Chief Complaint: Chest Pain Detail of Chief Complaint: Chest pain Informant: patient Narrative Narrative: Patient presents with chest pain that he has had for the last 2 weeks. Patient states that initially started with a lot of belching. Initially this pain was in the left side of his chest but then moved kind of to the center of his chest and today he has noticed it all the way across to the right side of his chest. Certain positions seem to make it worse. Pain at 1 point radiated to his neck but he thought it was related to some neck problems he had. Patient states the pain is not exertional. He has minimal shortness of breath. He denies nausea or vomiting. He denies fever or recent illness. He had prior stress test but never heart cath. He has no stents. No heart history otherwise. Patient denies recent travel or surgery. Patient states that he has a known history of a hiatal hernia and history of GERD. Patient denies any blood in his stool or black tarry stool. PFSH PFS Medical History BPH (benign prostatic hyperplasia) Hypertension Perforation of sigmoid colon due to diverticulitis Home Medications tamsulosin 0.4 mg capsule 0.4 mg PO QHS URINATION 10/06/16 [History Last Taken 03/18/19] amlodipine 5 mg tablet 5 mg PO DAILY BP 03/19/19 [History Last Taken 04/23/19] rosuvastatin 10 mg tablet 10 mg PO DAILY cholesterol 03/19/19 [History Last Taken 03/19/19] Allergy/AdvReac Type Severity Reaction Status Date / Time metoclopramide [From Reglan] AdvReac AGITATION Verified 07/13/22 18:18 Family History Other Cancer Surgical History S/P colectomy (~04/2019) Social History Smoking Status: Former smoker ROS ROS ED Review of Systems ROS Unobtainable: other Constitutional Constitutional ED: Reports lethargy; Denies chills, fever(s), sweats or weight loss Eyes Eyes: Denies blurry vision, change in vision or diplopia ENT ENT ED: Denies rhinorrhea or sore throat Cardiovascular Cardiovascular: Reports chest pain; Denies orthopnea or racing heartbeat Respiratory/Chest Respiratory/Chest: Reports dyspnea; Denies cough, dyspnea on exertion, orthopnea or sputum Gastrointestinal Gastrointestinal: Denies abdominal pain, diarrhea, nausea or vomiting Genitourinary Genitourinary ED: Denies dysuria, hematuria or urinary frequency Musculoskeletal Musculoskeletal: Denies arthralgias, back pain, myalgias or neck pain Integumentary Denies abscess, Abrasions or rash Neurologic Neurologic: Denies headache(s) or weakness Psychiatric Psychiatric: Denies anxiety, depression or suicidal thoughts Endocrine Endocrinology: Denies polydipsia, polyphagia or polyuria Hematologic/Lymphatic Hematologic/Lymphatic: Denies easy bleeding, easy bruising or lymphadenopathy Allergic/Immunologic Allergic/Immunologic ED: Denies mouth swelling, tongue swelling or urticaria EXAM Physical Exam Const Vital Signs: 07/13/22 18:19 07/13/22 18:44 07/13/22 20:20 Temperature 97 F L Temperature Source Temporal Pulse Rate 82 66 Respiratory Rate 19 H 18 Blood Pressure 150/77 H 141/77 H Blood Pressure Mean 101 98 Pulse Ox 98 96 96 Oxygen Delivery Method Room Air Room Air Room Air Positive well nourished and well developed General Appearance ED: well developed and NAD HEENT Reports TM's clear and moist mucous membranes normocephalic and atraumatic; Negative for trauma or tenderness Tympanic Membrane ED: Yes TM's clear Eyes PERRL and EOMs intact bilaterally General Eye ED: Negative for pale conjunctiva or scleral icterus Neck no lymphadenopathy, supple and no JVD General: Negative for tenderness Chest Wall inspection of chest normal and palpation of chest normal Chest: Negative for tenderness Resp normal respiratory effort and clear to auscultation bilaterally Effort and Inspection: Negative for respiratory distress or pain with movement Auscultation: Negative for rhonchi, wheezes or diminished lung sounds Cardio regular rate, regular rhythm, S1 normal heart sound, S2 normal heart sound and no murmurs Peripheral Pulses: pulses 2+ throughout GI normal to inspection, nondistended, normoactive bowel sounds, soft to palpation, non-tender, non-distended and no masses Back/Spine no CVA tenderness and no thoracic nor lumbar tenderness Extremity normal to inspection General Extremety ED: Negative for edema General Extremity: Negative for edema Neuro oriented x3, CN's II-XII intact bilaterally, no sensory deficits noted and gait normal Sensorium / Orientation: awake, alert, oriented to person, oriented to place and oriented to time Motor Exam: strength 5/5 throughout and strength abnormal Psych mental status grossly normal Skin no rashes or lesions noted and no wounds Heart Score History: Slightly/Non-Suspicious ECG: Normal Age: >/= 65 years Risk Factors: 1 or 2 Risk Factors Troponin: </= Normal Limit Score: 3 MDM MDM MDM Narrative Medical decision making narrative: Patient presents with GI symptoms and chest pain. Clinically low suspicion for acute coronary syndrome. EKG obtained arrival shows sinus rhythm with a ventricular rate of 73 bpm with no acute ST segment changes. CBC with differential is normal. Chemistries normal. Troponin was normal at 8 and D- dimer was normal 1.34. I will see his normal. Lipase normal 1 view chest x-ray interpreted by myself disease process. Radiology was in agreement. At this point etiology of his chest pain is unclear. Again feel he is low risk for acute coronary syndrome. I suspect more likely a GI cause. Patient will be given referral to GI for follow-up. I did do a CT scan of his abdomen pelvis that did not show any evidence of hiatal hernia or perforated gastric ulcer or any acute disease process. Lab Data Attestation: I reviewed the patient's lab results. Labs: Laboratory Results - last 24 hr 07/13/22 07/13/22 07/13/22 18:40 18:40 18:40 WBC 8.4 RBC 4.86 Hgb 13.7 Hct 41.9 MCV 86.2 MCH 28.2 MCHC 32.7 RDW Std Deviation 39.7 RDW Coeff of Bradley 12.7 Plt Count 267 MPV 10.0 Immature Gran % (Auto) 0.400 Neut % (Auto) 61.7 Lymph % (Auto) 26.4 [place] % (Auto) 8.9 Eos % (Auto) 2.0 Baso % (Auto) 0.6 Absolute Neuts (auto) 5.2 Absolute Lymphs (auto) 2.22 Nucleated RBC % 0 D-Dimer Quant (PE/DVT) 0.34 Sodium Potassium Chloride Carbon Dioxide Anion Gap BUN Creatinine Estim Creat Clear Calc Est GFR (MDRD) Af Amer Est GFR (MDRD) Non-Af BUN/Creatinine Ratio Glucose Calcium Total Bilirubin 0.30 Direct Bilirubin 0.10 AST 23 ALT 25 Alkaline Phosphatase 76 Troponin I High Sens Total Protein 8.2 Albumin 4.0 Globulin 4.2 Lipase 07/13/22 18:40 WBC RBC Hgb Hct MCV MCH MCHC RDW Std Deviation RDW Coeff of Bradley Plt Count MPV Immature Gran % (Auto) Neut % (Auto) Lymph % (Auto) [place] % (Auto) Eos % (Auto) Baso % (Auto) Absolute Neuts (auto) Absolute Lymphs (auto) Nucleated RBC % D-Dimer Quant (PE/DVT) Sodium 140 Potassium 4.0 Chloride 103 Carbon Dioxide 29.0 Anion Gap 8 BUN 17 Creatinine 1.04 Estim Creat Clear Calc 60.03 Est GFR (MDRD) Af Amer 90 Est GFR (MDRD) Non-Af 75 BUN/Creatinine Ratio 16.3 Glucose 90 Calcium 9.3 Total Bilirubin Direct Bilirubin AST ALT Alkaline Phosphatase Troponin I High Sens 8 Total Protein Albumin Globulin Lipase 32 Radiography Diagnostic Testing: Clinical Impression(s) from Imaging Studies Chest X-Ray 07/13/22 18:50 IMPRESSION: No radiographic evidence of acute cardiopulmonary disease. Electronically Signed: Jesse Montero MD at 19:04 EDT , Abdomen/Pelvis CT 07/13/22 19:27 IMPRESSION: No acute abnormal finding the abdomen or pelvis. Electronically Signed: Jesse Mnotero MD at 20:00 EDT , 1 view chest x-ray obtained interpreted by myself no acute disease process without evidence of infiltrate or pneumothorax. Radiology in agreement. EKG Initial EKG: Attestation: I personally reviewed and interpreted this EKG as follows: Comments: Sinus rhythm with a rate of 73 bpm with no acute ST segment changes Discharge Plan Triage Chief Complaint: Chest Pain ED Provider: Charly Villarreal Dx/Rx/DC Orders Clinical Impression: Chest pain Instructions: ED Chest Pain, Uncertain Cause Prescriptions: No Action tamsulosin 0.4 MG capsule 0.4 mg PO QHS Label Comments: amlodipine 5 MG tablet 5 mg PO DAILY rosuvastatin 10 MG tablet 10 mg PO DAILY Label Comments: TAKE 1 TABLET BY MOUTH EVERY DAY Primary Care Provider: Caridad Grace Referrals: Caridad Grace DO [Primary Care Provider] - 3-5 Days Felipe Mejia DO [Med Staff - Active Staff] - 3-5 Days Disposition Disposition: Home, Self Care
[2022-07-13 18:44] VITALS: O2SAT 96
[2022-07-13] MEDS: 0.9% Normal Saline 1,000 ML 150 ML IV (18:46)
[2022-07-13] MEDS: Aspirin 81 MG TAB.CHEW 324 MG PO (18:47)
--- NOTE | 2022-07-13 18:50 | RAD_ITS ---
INDICATION: Chest pain EXAMINATION/TECHNIQUE: X-RAY - XR Chest 1 View COMPARISON: None FINDINGS: LUNGS: No consolidation, edema or effusion. No pneumothorax. MEDIASTINUM AND CARDIOVASCULAR STRUCTURES: Cardiac silhouette not enlarged. Central airways and mediastinal contour are unremarkable. RAD/Chest 1 View (Portable) IMPRESSION: No radiographic evidence of acute cardiopulmonary disease. Electronically Signed: Jesse Montero MD at 19:04 EDT ,
[2022-07-13 18:51] LABS: Absolute Lymphocyte Count 2.22 X10^3/uL (0.83-4.51); Absolute Neutrophil Count 5.2 X10^3/uL (2.0-7.7); Basophil# 0.05 X10^3/uL; Basophil% 0.6 % (0-1); Eosinophil# 0.17 X10^3/uL; Hematocrit 41.9 % (40-54); Hemoglobin 13.7 g/dL (13.0-16.5); Lymphocyte # 2.22 X10^3/ul (0.83-4.51); Lymphocyte % 26.4 % (19-41); Mean Corp Hgb Conc 32.7 g/dL (32-36); Mean Corpuscular Hgb 28.2 pg (27.0-32.0); Mean Corpuscular Volume 86.2 fL (80-94); Monocyte# 0.75 X10^3/uL; Monocyte% 8.9 % (0-10); NRBC Flagged by Analyzer 0 % (0-5); Neutrophil # 5.19 X10^3/uL (2.7-7.7); Neutrophil % 61.7 % (47-70); Platelet Count 267 K/mm3 (150-450); RBC Distribution Width CV 12.7 % (11.6-14.6); RBC Distribution Width SD 39.7 fl (35.1-43.9); Red Blood Count 4.86 M/mm3 (4.6-6.2); White Blood Count 8.4 K/mm3 (4.4-11.0)
[2022-07-13 19:02] LABS: D-Dimer Quantitative (DVT/PE) 0.34 FEU/ug/m (0.27-0.49)
[2022-07-13 19:08] LABS: Anion Gap 8 (5-15); BUN 17 mg/dL (7-18); BUN/Creat Ratio 16.3 RATIO (10-20); Calcium,Total 9.3 mg/dL (8.5-10.1); Chloride 103 mmol/L (98-107); Creatinine, Serum 1.04 mg/dL (0.70-1.30); EST Glomerular Filtration Rate 75 mL/min (>60); Est Glom Filt Rate - Afr Amer 90 mL/min (>60); Estimated Creatinine Clearance 60.03 ml/min; Glucose 90 mg/dL (74-106); Lipase 32 U/L (13-75); Sodium Level 140 mmol/L (136-145); Troponin-I HS (w/2H Reflex) 8 pg/mL (3.0-78.0)
[2022-07-13 19:15] LABS: AST(SGOT) 23 U/L (15-37); Alanine Aminotransfer ALT/SGPT 25 U/L (16-61); Alkaline Phosphatase 76 U/L (45-117); Globulin 4.2 g/dL (2.2-4.2); Protein, Total 8.2 g/dL (6.4-8.2)
--- NOTE | 2022-07-13 19:27 | CT_ITS ---
STUDY: CT ABDOMEN AND PELVIS WITH CONTRAST REASON FOR EXAM: Male, 72 years old. Abdominal pain RADIATION DOSAGE (If Supplied By Facility): CTDIvol = ( 13.94 ) mGy, DLP = ( 949.44 ) mGycm TECHNIQUE: IV 89 mL Isovue-370 was administered. Transaxial images were obtained from the dome of the diaphragm to the symphysis pubis. Multiplanar coronal and sagittal images were reformatted. Individualized Dose Optimization Techniques Were Used For This CT. COMPARISON: 03/19/2019 FINDINGS: The visualized lung bases are unremarkable. The visualized portions of the heart are within normal limits. Scattered liver cysts redemonstrated. Prior cholecystectomy. Normal spleen. Normal pancreas. Normal bilateral adrenal glands. Normal visualized stomach. Normal small intestine. Rectosigmoid anastomosis noted. Otherwise normal colon. The appendix is visualized and appears normal. Normal abdominal aorta. No retroperitoneal adenopathy. Normal right kidney. Normal left kidney. Normal urinary bladder. There are a few tiny prostatic calcifications. Normal abdominal wall. Normal thoracolumbar vertebral alignment. CT/Abdomen/Pelvis W IV Cont ONLY IMPRESSION: No acute abnormal finding the abdomen or pelvis. Electronically Signed: Jesse Montero MD at 20:00 EDT ,
[2022-07-13 20:20] VITALS: BP 141/77; PULSE 66; RESP 18; O2SAT 96
[2022-07-13 20:34] VITALS: BP 139/76; PULSE 65; RESP 15; O2SAT 95
[2022-07-13 20:48] LABS: Reflex Troponin-HS? (from REC) Y
== END 2022-07-13 20:41 | disposition home or self-care (01) ==
PROVIDERS: Emergency Provider Emergency Medicine; PCP Internal Medicine; Visit Provider Emergency Medicine
DX: R07.9 Chest pain, unspecified (principal); I10 Essential (primary) hypertension; R06.02 Shortness of breath; Z87.891 Personal history of nicotine dependence; N40.0 Benign prostatic hyperplasia without lower urinary tract symptoms
CPT/HCPCS: 71045; 74177; 80048; 80076; 83690; 84484; 85025; 85379; 93005; 99284; J7030; Q9967

== ENCOUNTER → 2022-08-01 | Outpatient (CLI) | payer MEDICARE, OTHER, SELFPAY ==
--- NOTE | 2022-08-01 09:45 | RAD_ITS ---
EXAMINATION: Double contrast esophagram. INDICATION: Dysphagia, reflux EXAMINATION/TECHNIQUE: Thick and thin barium oral contrast , gas bubbles, and barium pill were administered to the patient. Total Fluoroscopic Time: 9 seconds AND number of Fluoroscopic Images: 29 spot images. Radiation dosage index: 46.72 mGy COMPARISON: None. FINDINGS: No masses or strictures are identified. There is no hiatal hernia. The mucosal pattern is unremarkable. There is normal motility. Reflux was not elicited. Normal passage of the barium pill. RAD/Esophagus Dual Contrast IMPRESSION: Normal esophagram. Electronically Signed: Santino Garcia MD at 13:31 EDT ,
== END | disposition home or self-care (01) ==
LOC: RAD 09:33
PROVIDERS: PCP Internal Medicine; Referring Provider Internal Medicine; Visit Provider Internal Medicine
DX: R13.10 Dysphagia, unspecified (principal)
CPT/HCPCS: 74221

== ENCOUNTER → 2022-09-18 | Outpatient (CLI) | payer MEDICARE, SELFPAY ==
--- NOTE | 2022-09-18 11:33 | NM_ITS ---
CLINICAL: 72-year-old male with history of gastroesophageal reflux disease. SEMI-SOLID PHASE 99m Tc SULFUR COLLOID GASTRIC EMPTYING STUDY COMPARISON: None available FINDINGS: The patient was administered 1.0 mCi of 99m Tc sulfur colloid mixed with oatmeal and consumed per os. Image acquisitions in the anterior-posterior projections were obtained for 60 minutes. There is prompt visualization of the stomach. There is no gastroesophageal reflux identified. The T ? raw data emptying was calculated to be 29.70 minutes, (Normal: 12-56 minutes). NM/Gastric Emptying Study IMPRESSION: 1. NORMAL 99m Tc sulfur colloid semi-solid phase (oatmeal) gastric emptying imaging examination. A. There is normal and preserved semi-solid phase gastric emptying compared to normal controls. (Dallin et al, J Nucl Med Tech 38: 186, 2010). Electronically Signed: Charlie Bustillo, at 9:07 EDT ,
== END | disposition home or self-care (01) ==
LOC: NM 11:32
PROVIDERS: PCP Internal Medicine; Referring Provider Internal Medicine Gastroenterology; Visit Provider Internal Medicine Gastroenterology
DX: K21.9 Gastro-esophageal reflux disease without esophagitis (principal)
CPT/HCPCS: 78264; A9541

== ENCOUNTER 2022-10-13 13:45 | Day surgery (SDC) | payer MEDICARE, SELFPAY ==
[2022-10-13] VITALS (7 sets, daily range): BP systolic 96–156; BP diastolic 63–81; PULSE 55–61; RESP 12–18; TEMP 36.2–36.4; O2SAT 98–100; BMI 31.4
--- NOTE | 2022-10-13 | IMM_PTH ---
PATIENT: EVI RENEE LOC: EN U#:[id number] AGE/SX: 72/M ROOM: RE10/13/[address]: Dr. Felipe Mejia DO : 1950 BED: DIS: 10/13/2022 SPEC #: [id number] RECD: 10/17/22 14:06 STATUS: DEMETRIO REDarren #: [id number] VANDANA: 10/13/22 00:[address]: Felipe Mejia DEPT: IMMUNOHISTOCHEMISTRY RECD BY: Elle Parnell ENTERED: 10/17/22 14:06 SP TYPE: IMMUNO OTHR DR: Dr. Caridad Grace DO Tissues: Esophagus, NOS Procedures: P53 (initial) KI-67 (add) MOC-31 (add) PHYSICIAN & INSTITUTION [place] [id number] SPECIMEN INFORMATION: Tissue Source: Distal esophagus Clinical Info: Perforation of sigmoid colon due to diverticulitis, abdominal pain, GERD Specimen Number: [id number] CPT code: 67774, 25774 x2 METHODOLOGY: Deparaffinized sections of prefer/formalin-fixed tissue or PAP/DQ stained slides are incubated with monoclonal/polyclonal antibodies/oligonucleotide probes. Localization is made via biotin free immunoperoxidase method. Appropriate controls are performed and reacted as expected. Results on target cell population are indicated in the following table: RESULTS: ANTIBODY / CLONE RESULT P53 (DO-7) negative, wild type pattern Ki-67 (30-9) positive, low MOC-31 (4561) positive These tests were developed and their performance characteristics determined by [facility]. They may not have been cleared or approved by the U.S. Food and Drug Administration. The FDA has determined that such clearance or approval is not necessary. The above immunohistochemical/dualISH markers are ordered and reviewed by the Pathologist. INTERPRETATION: Distal esophagus, biopsy: No evidence of dysplasia. AM:austin 10/18/2022
[2022-10-13] MEDS: Lactated Ringers 1,000 ML 15 ML IV (14:06)
--- NOTE | 2022-10-13 14:45 | EGD_PTH ---
PATIENT: EVI RENEE LOC: EN U#:[id number] AGE/SX: 72/M ROOM: RE10/13/[address]: Dr. Felipe Mejia DO : 1950 BED: DIS: 10/13/2022 SPEC #: [id number] RECD: 10/13/22 16:19 STATUS: DEMETRIO DAFNE #: [id number] VANDANA: 10/13/22 14:[address]: Felipe Mejia DEPT: SURGICAL PATHOLOGY RECD BY: Narcisa Guillen ENTERED: 10/16/22 08:39 SP TYPE: EGD BIOPSY LAVERN DR: Dr. Caridad Grace DO Tissues: Esophagus, NOS Procedures: Surgery Specimen Level IV HEADER OPERATION: EGD - PH probe (MAC), biopsy PRE-OP DIAGNOSIS: Perforation of sigmoid colon due to diverticulitis, abdominal pain, GERD TISSUE SUBMITTED: Distal esophagus biopsy MICROSCOPIC DIAGNOSIS Distal esophagus, biopsy: Gastroesophageal junctional mucosa with mild chronic inflammation. 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 No evidence of dysplasia. See comment. AM:austin 10/17/2022 COMMENT Immunohistochemistry ([id number]) for P53 and Ki-67 will be performed and results will be reported separately. Alcian blue/PAS stain with matched control supports the above diagnosis. MICROSCOPIC DESCRIPTION Slides are reviewed. GROSS DESCRIPTION Received in fixative is one container labeled with the patient's name and designated distal esophagus biopsy. The specimen consists of two irregular fragments of light lynn soft tissue that in aggregate measure 0.6 x 0.6 x 0.1 cm. The specimen is totally submitted in one cassette. / MADISON:austin 10/16/2022 TC:3 CPT: 14719, 92308
--- NOTE | 2022-10-13 15:19 | HP.PCM_ITS ---
History and Physical Date of Admission: 10/13/22 EVI RENEE, is a 72 M who presents to the office today for initial consult. [facility] hospitalization .10.29-03.21.19 for management of acute diverticulitis with microperforation not requiring surgical intervention; notes this being third recent/acute episodea.?CT abd/pel 03.19.19?stable 1.8cm hepatic cyst; small hiatal hernia; acute diverticulitis with peritoneal air bubbles, contained perforation.? [facility] outpatient:?Colonoscopy 04.18.19?hemorrhoids; colonic diverticulosis.?Laparoscopic sigmoid colectomy 04.23.19? [facility] ED 5.07.02 with chest pain for two weeks that initially started with belching with positional worsening. Known history of hiatal hernia and GERD. Cardiology etiology r/o. No acute etiology found and discharged with instruction to follow up with GI.?Biochemical?CBC, DDImer, LFT, troponin, lipase WNL.?CT abd/pel?hepatic cysts, stable; RS anastomosis noted.? PCP workup:?Barium swallow 08.01.22?without hiatal hernia and normal motility.? Pt reports CP starting a few months ago. Previous to that has never really had issues with HB. Has CP sometimes all day and then intermittently. Takes OTC Lansoprazole BID with no relief. Denies dysphagia. Still has gas and burping. BM are normal. No issues with diverticulitis since colectomy. ? ? ROS Const Constitutional: No fatigue Eyes Eyes: No change in vision ENT ENT: No abnormal hearing or difficulty swallowing Resp Respiratory: No cough or shortness of breath Cardio Cardiology: No chest pain at rest, chest pain with exertion, shortness of breath or dyspnea on exertion Gastro GI: Positive for bloating, heartburn and excessive flatus; No abdominal pain, belching, change in bowel habits, change in stool character, coffee ground emesis, constipation, cramping, diarrhea, difficulty swallowing, feeling full early, incontinent of stools, Vomiting blood/hematemesis, Blood in stool, loose stools, Black,tarry stools, nausea/dyspepsia, pain with swallowing, vomiting or other Genitourinary Male: No difficulty urinating or burning urination Musc Musculoskeletal: No joint pain Skin Skin: No yellowing of the eye or itchy eyes Neuro Neurology: No abnormal hearing, abnormal movements, confusion, unsteady gait/bal ance or memory loss Psych Psychiatric: No anxiety, No confusion, No depression and No memory loss Endo Endocrine: No fatigue Aller/Imm Allergy/Immunologic: No itchy eyes Luis Alberto/Lymp Hematologic/Lymphatic: No easy bleeding or easy bruising Exam Const General: cooperative and healthy appearing Resp Effort & Inspection: normal respiratory effort Auscultation: Bilateral: Clear to Auscultation Cardio Rate: regular rate Rhythm: regular rhythm Skin General: no rashes or lesions noted (See exception in extremities exam) Neuro General: patient alert Extrem Other: Laceration to the dorsal right hand just proximal to the thumb with all sutures remaining well intact and wound edges intact. All sutures removed without complication with no dehiscence of the wound. No surrounding erythema, warmth or drainage from the site. Psych Appearance: grossly normal Mental Status: mental status grossly normal Quality Reporting Tobacco Screening ([facility] 138) Smoking Status: Former smoker Assessment and Plan Assessment and Plan (1) Perforation of sigmoid colon due to diverticulitis: Status: Acute Plan: He is not having any problems with constipation at this time he has taken fiber as needed. Would recommend him to take Fiber Choice in the morning and at night. (2) Abdominal pain: Status: Acute Plan: Differential diagnosis for his abdominal pain does include bile induced gastritis, exocrine pancreatic insufficiency, bacterial overgrowth in the setting of a surgery for perforated diverticulitis (3) GERD (gastroesophageal reflux disease): Status: Acute Plan: He is having symptoms of gastroesophageal reflux disease and possibly secondary to underlying gastroparesis. He will have a gastric emptying study and also have biochemical work-up and will perform an upper endoscopy to evaluate his upper GI tract. I have examined the patient and the H&P has been reviewed. There are no clinical changes since date of exam.
--- NOTE | 2022-10-13 15:46 | OP.EGD_ITS ---
Patient Name: Tru Tapia Procedure Date: 10/13/2022 3:12 PM Date of : 1950 Age: 72 Procedure: Upper GI endoscopy Indications: Suspected esophageal reflux Providers: Felipe Mejia DO Medicines: Monitored Anesthesia Care Patient Profile: This is a 72 year old male. Refer to note in patient chart for documentation of history and physical. Patient has symptoms of chronic chest pain, chronic dyspepsia and chronic heartburn. Complications: No immediate complications. Procedure: Pre-Anesthesia Assessment: - Prior to the procedure, a History and Physical was performed, and patient medications and allergies were reviewed. The risks and benefits of the procedure and the sedation options and risks were discussed with the patient. All questions were answered and informed consent was obtained. Patient identification and proposed procedure were verified by the physician in the pre-procedure area. Mental Status Examination: alert and oriented. Airway Examination: normal oropharyngeal airway and neck mobility. Respiratory Examination: clear to auscultation. CV Examination: normal. Prophylactic Antibiotics: The patient does not require prophylactic antibiotics. Prior Anticoagulants: The patient has taken no previous anticoagulant or antiplatelet agents. ASA Grade Assessment: II - A patient with mild systemic disease. After reviewing the risks and benefits, the patient was deemed in satisfactory condition to undergo the procedure. The anesthesia plan was to use monitored anesthesia care (MAC). Immediately prior to administration of medications, the patient was re-assessed for adequacy to receive sedatives. The heart rate, respiratory rate, oxygen saturations, blood pressure, adequacy of pulmonary ventilation, and response to care were monitored throughout the procedure. The physical status of the patient was re-assessed after the procedure. After obtaining informed consent, the endoscope was passed under direct vision. Throughout the procedure, the patient's blood pressure, pulse, and oxygen saturations were monitored continuously. The gastroscope was introduced through the mouth, and advanced to the second part of duodenum. The upper GI endoscopy was accomplished without difficulty. The patient tolerated the procedure well. Scope In: 3:29:07 PM Scope Out: 3:36:39 PM Total Procedure Duration Time 0 hours 7 minutes 32 seconds Findings: There were esophageal mucosal changes suspicious for short-segment Dill's esophagus present in the lower third of the esophagus. The maximum longitudinal extent of these mucosal changes was 2 cm in length. Mucosa was biopsied with a cold forceps for histology in a targeted manner at intervals of 1 cm in the lower third of the esophagus. One specimen bottle was sent to pathology. Verification of patient identification for the specimen was done. Estimated blood loss was minimal. Abnormal motility was noted in the middle third of the esophagus. The cricopharyngeus was normal. There is spasticity of the esophageal body. The distal esophagus/lower esophageal sphincter is patulous. Tertiary peristaltic waves are noted. The RAMOS capsule with delivery system was introduced through the mouth and advanced into the esophagus, such that the RAMOS pH capsule was positioned 39 cm from the incisors, which was 6 cm proximal to the GE junction. Suction was applied to the well of the RAMOS pH capsule to suck in the adjacent mucosa of the esophagus using the external vacuum pump set at a minimum vacuum pressure of 550 mmHg for 30 seconds. The RAMOS pH capsule was then deployed by depressing the plunger on top of the handle to advance the locking pin into the mucosa, thereby attaching the capsule to the esophagus. The plunger was then rotated a quarter turn clockwise to release the capsule from the delivery system. The delivery system was then withdrawn. Endoscopy was utilized for probe placement and diagnostic evaluation. A small hiatal hernia was present. No other significant abnormalities were identified in a careful examination of the stomach. The first portion of the duodenum was normal. 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 Biopsied. - Abnormal esophageal motility, suspicious for esophageal spasm. - Small hiatal hernia. - Normal first portion of the duodenum. - The RAMOS pH capsule was positioned 39 cm from the incisors, which was 6 cm proximal to the GE junction. Recommendation: - Discharge patient to home. - Resume previous diet. - Continue present medications. - Await pathology results. Procedure Code(s): --- Professional --- 34534, Esophagogastroduodenoscopy, flexible, transoral; with biopsy, single or multiple CPT copyright 2017 [employer]. All rights reserved. The codes documented in this report are preliminary and upon police detective review may be revised to meet current compliance requirements. Felipe Mejia DO 10/13/2022 3:46:20 PM This report has been signed electronically. Number of Addenda: 0 Note Initiated On: 10/13/2022 3:12 PM
--- NOTE | 2022-10-13 15:46 | OP.CCLET_ITS ---
10/13/2022 Caridad Grace [address] [place] [address] Re : Upper GI endoscopy procedure for Tru Tapia Dear Dr. Grace This procedure was performed on Thursday, October 13, 2022. 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 Biopsied. - Abnormal esophageal motility, suspicious for esophageal spasm. - Small hiatal hernia. - Normal first portion of the duodenum. - The RAMOS pH capsule was positioned 39 cm from the incisors, which was 6 cm proximal to the GE junction. Recommendations : - Discharge patient to home. - Resume previous diet. - Continue present medications. - Await pathology results. My findings are described in the full procedure note, which is enclosed. If I can be of further assistance, please feel free to contact me at . Sincerely, Felipe Mejia, 10/13/2022 3:46:20 PM This report has been signed electronically.
== END 2022-10-13 16:26 | disposition home or self-care (01) ==
LOC: EN 13:48 → AC 13:49
PROVIDERS: PCP Internal Medicine; Referring Provider Internal Medicine; Visit Provider Internal Medicine Gastroenterology
PROC: (CPT 43239; principal; 2022-10-13 14:40)
DX: K57.32 Diverticulitis of large intestine without perforation or abscess without bleeding (principal); K44.9 Diaphragmatic hernia without obstruction or gangrene; Z87.891 Personal history of nicotine dependence
CPT/HCPCS: 43239; 81002; 88305; 88341; 88342; J7120; J2405

== ENCOUNTER 2024-01-28 12:41 | Observation (INO) | payer MEDICARE, SELFPAY ==
[2024-01-28] VITALS (10 sets, daily range): BP systolic 139–185; BP diastolic 72–85; PULSE 61–89; RESP 16–18; TEMP 36.2–36.9; O2SAT 94–100; BMI 32.2; BMI 31.6
--- NOTE | 2024-01-28 13:07 | EKG12_ITS ---
Test Reason : STROKE TEAM Blood Pressure : */* mmHG Vent. Rate : 77 BPM Atrial Rate : 77 BPM P-R Int : 200 ms QRS Dur : 80 ms QT Int : 376 ms P-R-T Axes : 70 61 44 degrees QTcB Int : 425 ms Normal sinus rhythm Normal ECG Confirmed by MOISES BAKER, DIANA ([id number]), makeup editor SID ROBERSON ([id number]) on 01/29/2024 1:50:43 PM Referred By: Confirmed By: DIANA DE LEON MD
--- NOTE | 2024-01-28 13:07 | CT_ITS ---
STUDY: CT HEAD STROKE PROTOCOL W/O CONTRAST INJECTION REASON FOR EXAM: Male, 74 years old. Neuro deficit, acute, stroke suspected RADIATION DOSAGE (If Supplied By Facility): CTDIvol = ( 44.99 ) mGy, DLP = ( 762.36 ) mGycm TECHNIQUE: Transaxial CT imaging of the brain was performed without administration of intravenous contrast material. Individualized dose optimization techniques were used for this CT. COMPARISON: No relevant priors. FINDINGS: Normal soft tissue structures. Normal calvarium. There is mild cerebral atrophy with widening of the extra-axial spaces and ventricular dilatation. Normal white matter tracts of the cerebral hemispheres. Normal basal ganglia and thalami. Normal brainstem. Focal area of decreased attenuation in the left cerebellar hemisphere as compared to the right side. Subacute ischemic changes ruled out. There is no intracranial hemorrhage. There are no findings of an acute ischemic infarction. Partial opacification of the left maxillary sinus. ASPECT score: 10 CT/STROKE Brain/Head without Cont IMPRESSION: Chronic involutional changes of the brain. Focal area decreased attenuation in the left cerebellar hemisphere as described. Subacute ischemic changes should be ruled out. N.B. : The above Results were Read Back by Herrera Lopez MD to Kan Robledo MD, and understanding confirmed on 01/28/2024 13:24:05 (ET). Electronically Signed: Herrera Lopez MD at 13:25 EST ,
--- NOTE | 2024-01-28 13:08 | CT_ITS ---
STUDY: CTA HEAD AND NECK WITH CONTRAST REASON FOR EXAM: Male, 74 years old. Neuro deficit, acute, stroke suspected RADIATION DOSAGE (If Supplied By Facility): CTDIvol = ( 16.57 ) mGy, DLP = ( 815.98 ) mGycm TECHNIQUE: CT angiography was performed with a multi-detector CT scanner. Data acquisition was obtained from the skull base through the vertex following intravenous administration of IV 100mL Isovue-370. MIP images were reconstructed from the axial data set. Post-processing of the angiographic images was performed, with multiplanar reformation and 3D reconstruction. Individualized dose optimization techniques were used for this CT. COMPARISON: No relevant priors. FINDINGS: Normal bilateral petrous carotid arteries. Normal right cavernous carotid artery with a normal supraclinoid bifurcation. Normal left cavernous carotid artery with a normal supraclinoid bifurcation. Normal right A1 segments of the anterior cerebral artery. Normal left A1 segments of the anterior cerebral artery. Normal intact anterior communicating artery (ACOM). Normal bilateral A2 segments of the anterior cerebral arteries. Normal right M1 and M2 segments of the middle cerebral arteries, with a normal M1 bifurcation. Normal left M1 and M2 segments of the middle cerebral arteries, with a normal M1 bifurcation. Normal right posterior communicating artery (PCOM). Normal left posterior communicating artery (PCOM). Normal bilateral vertebral arteries. Normal basilar artery with a normal basilar bifurcation. The visualized bilateral superior cerebellar (SCA) arteries are normal. Normal bilateral P1, P2 and visualized P3 segments of the posterior cerebral arteries. There is no demonstrated aneurysm of the [place]. Mucosal polyp or retention cyst in the left maxillary sinus. AORTIC ARCH: Normal visualized aortic arch. Normal origins of the brachiocephalic, left common carotid, and left subclavian arteries. RIGHT CAROTID ARTERIES: Normal right common carotid artery (CCA). Normal right common carotid bulb. Normal origin of the right internal carotid (ICA) artery without a hemodynamically significant stenosis. Normal visualized cervical portion of the right internal carotid artery. Normal origin of the right external carotid artery (ECA). LEFT CAROTID ARTERIES: Normal left common carotid artery (CCA). Normal left common carotid bulb. Normal origin of the left internal carotid (ICA) artery without a hemodynamically significant stenosis. Normal visualized cervical portion of the left internal carotid artery. Normal origin of the left external carotid artery (ECA). VERTEBRAL ARTERIES: Normal bilateral vertebral arteries. CT/STROKE CTA Head AND Neck W/Con IMPRESSION: Normal CTA Head and neck with contrast. N.B. : The above Results were Read Back by Herrera Lopez MD to Kan Robledo and understanding confirmed on 01/28/2024 13:30:41 (ET). Electronically Signed: Herrera Lopez MD at 13:32 EST ,
--- NOTE | 2024-01-28 13:09 | ED.VIS.STROK ---
HPI History of Present Illness Chief Complaint: Hypertension Detail of Chief Complaint: Patient presents because of blood pressure greater than 200 and bilateral b Onset/Context/Timing Onset: Today (1030) Context: Sudden Onset Timing: Continuous Quality and Location: Positive for - (Bilateral blurred vision and elevated blood pressure) Onset: 1030 Current Severity: Mild Maximum Severity: Moderate Worsened by: Nothing Relieved by: Nothing Associated Symptoms Associated Symptoms: Negative for Headache, Nausea, Vomiting or Chest Pain Narrative Narrative: Patient is a 74-year-old male with history of hypertension, hyperlipidemia and former smoker 30 to 40 years ago who presents with acute onset of bilateral blurred vision. He states he was reading. Difficulty reading. This started at 1030. He states he still has bilateral blurred vision. He denies loss of vision or partial loss of vision. Denies headache. He denies nausea or vomiting. He did take his blood pressure and states it was greater than 200 systolic. He denies trouble with speech or swallowing. He denies paresthesia, anesthesia or motor weakness upper lower extremity. He denies cardiac or respiratory symptoms. He does endorse shortness of breath over the past month with activity. He denies nausea or diaphoresis with the shortness of breath. He denies chest pain with this shortness of breath. He denies black or maroon-colored stool. He is not on an anticoagulant. Prior similar symptoms: No Recent Illness/Hospitalization: No [facility] Medical History Wears glasses Arthritis Prostate disease High cholesterol History of hiatal hernia Heartburn Gastric reflux Former smoker History of stress test BPH (benign prostatic hyperplasia) Hypertension Perforation of sigmoid colon due to diverticulitis Home Medications ?Medication ?Instructions ?Recorded ?Last Taken ?Type tamsulosin 0.4 mg capsule 0.4 mg PO QHS URINATION 10/06/16 03/18/19 History amlodipine 5 mg tablet 5 mg PO DAILY BP 03/19/19 04/23/19 History rosuvastatin 10 mg tablet 10 mg PO DAILY cholesterol 03/19/19 03/19/19 History famotidine 20 mg tablet 20 mg PO QDAY #90 TABLETS 08/21/23 Unknown Rx Allergy/AdvReac Type Severity Reaction Status Date / Time metoclopramide (From Reglan) AdvReac AGITATION Verified 01/28/24 12:44 Family History Other Cancer Surgical History History of foot surgery S/P right rotator cuff repair History of bilateral knee replacement History of cholecystectomy S/P colectomy (~04/2019) Social History household members: spouse housing: house Smoking Status: Former smoker alcohol intake: never ROS ROS ED Constitutional Constitutional ED: Denies chills, fever(s) or subjective Eyes Eyes: Reports blurry vision bilateral ENT ENT ED: Denies rhinorrhea or sore throat Cardiovascular Cardiovascular: Denies chest pain or palpitations Respiratory/Chest Respiratory/Chest: Reports dyspnea on exertion; Denies cough or dyspnea Gastrointestinal Gastrointestinal: Denies abdominal pain, nausea or vomiting Musculoskeletal Musculoskeletal: Denies arthralgias, back pain or myalgias Neurologic Neurologic: Denies headache(s), paresthesias or weakness Hematologic/Lymphatic Hematologic/Lymphatic: Denies easy bleeding or easy bruising EXAM Physical Exam Const Vital Signs: 01/28/24 12:44 01/28/24 13:00 01/28/24 13:04 Temperature 97.2 F L Temperature Source Temporal Pulse Rate 89 75 Respiratory Rate 18 16 Respiratory Effort Normal Non-Labored Respiratory Pattern Normal Blood Pressure 185/83 H 167/81 H Blood Pressure Mean 117 109 Pulse Ox 100 94 Oxygen Delivery Method Room Air Room Air 01/28/24 13:33 Temperature Temperature Source Pulse Rate 78 Respiratory Rate 16 Respiratory Effort Respiratory Pattern Blood Pressure 148/72 H Blood Pressure Mean 97 Pulse Ox 95 Oxygen Delivery Method Room Air Positive well nourished and well developed General Appearance ED: well developed and NAD HEENT Reports moist mucous membranes atraumatic Nose: other Other Details: Normal Eyes PERRL and EOMs intact bilaterally General Eye ED: Negative for pale conjunctiva or scleral icterus Neck no lymphadenopathy, supple and no JVD Chest Wall inspection of chest normal Resp normal respiratory effort and clear to auscultation bilaterally Cardio no murmurs Rate: regular rate Rhythm: regular rhythm Heart Sounds: S1 normal and S2 normal GI normal to inspection, nondistended, normoactive bowel sounds, soft to palpation, non-tender, non-distended and no masses Back/Spine no CVA tenderness Extremity normal to inspection General Extremety ED: Negative for deformity or edema General Extremity: Negative for deformity or edema Neuro oriented x3, CN's II-XII intact bilaterally and no sensory deficits noted [place] Coma Scale: document GCS findings Spontaneous Obeys Commands Oriented 15 Sensorium / Orientation: alert Speech: speech normal Motor Exam: strength 5/5 throughout Psych mental status grossly normal Skin no wounds NIHSS NIHSS Initial: 1a Level of Consciousness: 0 1b LOC Questions (Score 2 if aphasic/stupor): 0 1c LOC Commands (Only score 1st attempt): 0 2 Best Gaze (If aphasic, use reflexive mvmts.): 0 3 Visual: 0 4 Facial Palsy: 0 5 Motor Arm Right (UN = amputation/fusion): 0 5 Motor Arm Left: 0 6 Motor Leg Right: 0 6 Motor Leg Left: 0 7 Limb ataxia (Only + if out of proportion): 0 8 Sensory (Aphasia/stupor=0 or 1, coma=2): 0 9 Best Language: 0 11 Extinction and Inattention (only scored if +): 0 Total Score: 0 MDM MDM MDM Narrative Medical decision making narrative: Patient with bilateral blurred vision. His blood pressure is elevated at 185/83. It is improved compared to when his symptoms started. This may be related to hypertension also need to evaluate for possible stroke. Stroke order set was initiated and stroke team was activated. Prior records indicates he has history of hypercholesterolemia and hypertension. He is on amlodipine for his hypertension. Based on medication he also has history of benign prostatic hypertrophy and GERD. History & Record Review Additional record(s) reviewed:: Prior outpatient record (Seen by Dr. Caballero for diverticulitis/diverticulitis of the large intestine without perforation or abscess. He was seen July 2022 for chest pain. April 2019 for diverticulitis.), Prior ED visit and Prior labs Lab Data Labs: Laboratory Results - last 24 hr 01/28/24 01/28/24 01/28/24 12:56 12:56 12:56 WBC 7.9 RBC 4.70 Hgb 13.7 Hct 41.2 MCV 87.7 MCH 29.1 MCHC 33.3 RDW Std Deviation 40.2 RDW Coeff of [place] 12.6 Plt Count 256 MPV 10.1 Immature Gran % (Auto) 0.400 Neut % (Auto) 63.3 Lymph % (Auto) 23.8 [place] % (Auto) 8.6 Eos % (Auto) 2.9 Baso % (Auto) 1.0 Absolute Neuts (auto) 5.0 Absolute Lymphs (auto) 1.88 Nucleated RBC % 0 PT 13.5 INR 1.0 APTT 26.6 Sodium 138 Cancelled Potassium 4.1 Cancelled Chloride 104 Carbon Dioxide Anion Gap BUN Creatinine Estim Creat Clear Calc Est GFR (MDRD) Af Amer Est GFR (MDRD) Non-Af BUN/Creatinine Ratio Glucose Calcium POC Glucose 01/28/24 01/28/24 01/28/24 12:56 12:56 12:56 WBC RBC Hgb Hct MCV MCH MCHC RDW Std Deviation RDW Coeff of [place] Plt Count MPV Immature Gran % (Auto) Neut % (Auto) Lymph % (Auto) [place] % (Auto) Eos % (Auto) Baso % (Auto) Absolute Neuts (auto) Absolute Lymphs (auto) Nucleated RBC % PT INR APTT Sodium Potassium Chloride Cancelled Carbon Dioxide 29.0 Cancelled Anion Gap 6 Cancelled BUN 16 Creatinine Estim Creat Clear Calc Est GFR (MDRD) Af Amer Est GFR (MDRD) Non-Af BUN/Creatinine Ratio Glucose Calcium POC Glucose 01/28/24 01/28/24 01/28/24 12:56 12:56 12:56 WBC RBC Hgb Hct MCV MCH MCHC RDW Std Deviation RDW Coeff of [place] Plt Count MPV Immature Gran % (Auto) Neut % (Auto) Lymph % (Auto) [place] % (Auto) Eos % (Auto) Baso % (Auto) Absolute Neuts (auto) Absolute Lymphs (auto) Nucleated RBC % PT INR APTT Sodium Potassium Chloride Carbon Dioxide Anion Gap BUN Cancelled Creatinine 0.88 Cancelled Estim Creat Clear Calc 77.60 Est GFR (MDRD) Af Amer 109 Cancelled Est GFR (MDRD) Non-Af 90 BUN/Creatinine Ratio Glucose Calcium POC Glucose 01/28/24 01/28/24 01/28/24 12:56 12:56 12:56 WBC RBC Hgb Hct MCV MCH MCHC RDW Std Deviation RDW Coeff of [place] Plt Count MPV Immature Gran % (Auto) Neut % (Auto) Lymph % (Auto) [place] % (Auto) Eos % (Auto) Baso % (Auto) Absolute Neuts (auto) Absolute Lymphs (auto) Nucleated RBC % PT INR APTT Sodium Potassium Chloride Carbon Dioxide Anion Gap BUN Creatinine Estim Creat Clear Calc Est GFR (MDRD) Af Amer Est GFR (MDRD) Non-Af Cancelled BUN/Creatinine Ratio 18.2 Cancelled Glucose 108 H Cancelled Calcium 9.4 POC Glucose 01/28/24 01/28/24 12:56 13:01 WBC RBC Hgb Hct MCV MCH MCHC RDW Std Deviation RDW Coeff of [place] Plt Count MPV Immature Gran % (Auto) Neut % (Auto) Lymph % (Auto) [place] % (Auto) Eos % (Auto) Baso % (Auto) Absolute Neuts (auto) Absolute Lymphs (auto) Nucleated RBC % PT INR APTT Sodium Potassium Chloride Carbon Dioxide Anion Gap BUN Creatinine Estim Creat Clear Calc Est GFR (MDRD) Af Amer Est GFR (MDRD) Non-Af BUN/Creatinine Ratio Glucose Calcium Cancelled POC Glucose 83 Radiography Diagnostic Testing: Clinical Impression(s) from Imaging Studies Brain CT 01/28/24 13:07 IMPRESSION: Chronic involutional changes of the brain. Focal area decreased attenuation in the left cerebellar hemisphere as described. Subacute ischemic changes should be ruled out. N.B. : The above Results were Read Back by Herrera Lopez MD to Kan Robledo MD, and understanding confirmed on 01/28/2024 13:24:05 (ET). Electronically Signed: Herrera Lopez MD at 13:25 EST , ADDENDUM: 01/28/24 1332 IMPRESSION: Chronic involutional changes of the brain. Focal area decreased attenuation in the left cerebellar hemisphere as described. Subacute ischemic changes should be ruled out. N.B. : The above Results were Read Back by Herrera Lopez MD to Kan Robledo MD, and understanding confirmed on 01/28/2024 13:24:05 (ET). Electronically Signed: Herrera Lopez MD at 13:25 EST , Head/Neck CTA 01/28/24 13:08 IMPRESSION: Normal CTA Head and neck with contrast. N.B. : The above Results were Read Back by Herrera Lopez MD to Kan Robledo and understanding confirmed on 01/28/2024 13:30:41 (ET). Electronically Signed: Herrera Lopez MD at 13:32 EST , ADDENDUM: 01/28/24 1339 IMPRESSION: Normal CTA Head and neck with contrast. N.B. : The above Results were Read Back by Herrera Lopez MD to Kan Robledo and understanding confirmed on 01/28/2024 13:30:41 (ET). Electronically Signed: Herrera Lopez MD at 13:32 EST , EKG Initial EKG: Attestation: I personally reviewed and interpreted this EKG as follows: Interpretation: Sinus Rhythm (Rate is 77 the EKG is normal. RI interval is 200 ms. Cures duration 80 ms per QT duration 3 and 76 ms. [place] is normal.) Management Discussion w/another healthcare provider: Hospitalist (Case was discussed with hospitalist. She was informed that the neurologist that evaluated him from [facility] is Dr. Rubio), Core Maker Helper (Stroke neurologist [facility]) and Radiologist (Dr. Gomes notified me of the CT brain without contrast.) Stroke Documentation Questions Stroke Team Activated: Yes Reviewed Inclusion/Exclusion criteria: Yes IV Thrombolytic Administered: No (Patient not a candidate) No contraindications from thrombolytic administration: Yes Discharge Plan Triage Chief Complaint: Hypertension ED Provider: Kan Robledo Dx/Rx/DC Orders Clinical Impression: Blurred vision, bilateral, BPH (benign prostatic hyperplasia), Accelerated essential hypertension Prescriptions: No Action tamsulosin 0.4 MG capsule 0.4 mg PO QHS Patient Comments: amlodipine 5 MG tablet 5 mg PO DAILY rosuvastatin 10 MG tablet 10 mg PO DAILY Patient Comments: TAKE 1 TABLET BY MOUTH EVERY DAY famotidine 20 mg tablet 20 mg PO QDAY Qty: 90 2RF Primary Care Provider: Caridad Grace Referrals: Caridad Grace DO [Primary Care Provider] - Print Language: Amharic Disposition Disposition: Acute Care Hospital [facility]
[2024-01-28 13:17] LABS: Absolute Lymphocyte Count 1.88 X10^3/uL (0.83-4.51); Basophil# 0.08 X10^3/uL; Eosinophil# 0.23 X10^3/uL; Eosinophils% 2.9 % (0-5); Hematocrit 41.2 % (40-54); Hemoglobin 13.7 g/dL (13.0-16.5); Lymphocyte # 1.88 X10^3/ul (0.83-4.51); Lymphocyte % 23.8 % (19-41); Mean Corp Hgb Conc 33.3 g/dL (32-36); Mean Corpuscular Hgb 29.1 pg (27.0-32.0); Mean Corpuscular Volume 87.7 fL (80-94); Mean Platelet Vol. 10.1 fl (6.2-12.0); Monocyte# 0.68 X10^3/uL; Monocyte% 8.6 % (0-10); NRBC Flagged by Analyzer 0 % (0-5); Neutrophil % 63.3 % (47-70); Platelet Count 256 K/mm3 (150-450); RBC Distribution Width CV 12.6 % (11.6-14.6); RBC Distribution Width SD 40.2 fl (35.1-43.9); White Blood Count 7.9 K/mm3 (4.4-11.0)
[2024-01-28 13:20] LABS: Bedside Glucose 83 mg/dL (74-106)
[2024-01-28 13:22] LABS: Partial Thromboplast Time 26.6 Seconds (24.1-36.2); Prothrombin Time (Protime)PT. 13.5 SECONDS (11.7-14.9)
[2024-01-28 13:24] LABS: Anion Gap 6 (5-15); BUN 16 mg/dL (7-18); BUN/Creat Ratio 18.2 RATIO (10-20); Calcium,Total 9.4 mg/dL (8.5-10.1); Chloride 104 mmol/L (98-107); Creatinine, Serum 0.88 mg/dL (0.70-1.30); EST Glomerular Filtration Rate 90 mL/min (>60); Est Glom Filt Rate - Afr Amer 109 mL/min (>60); Glucose 108 mg/dL (74-106); Potassium 4.1 mmol/L (3.5-5.1); Sodium Level 138 mmol/L (136-145)
--- NOTE | 2024-01-28 13:54 | PCM.HP.STD ---
HPI - General General Date of Admission: 01/28/24 Date of Service: 01/28/24 Chief Complaint: Blurred Vision HPI Narrative EVI RENEE, is a 74 M who presented to the emergency department [facility] on 01/28/2024 due to altered vision. Patient reported that his vision was blurred bilaterally and he was having difficulty reading. Symptoms started at about 10:30 in the morning. He stated he took his blood pressure at the time and it was noted to be elevated which is atypical for him. He has been consistent with his home medications and has not missed any doses. He reported that his third blood pressure was in the 200s systolic so he decided come to the emergency department. He denied any speech issues or swallowing problems. He denied any tingling and numbness or weakness in any extremity as well. He does complain of chronic shortness of breath with exertion that has been ongoing for about a year but has not been further assessed. We did discuss that if this is persistent he should discuss this further with his primary care physician. He does have a remote history of tobacco abuse and currently is treated for hypertension and hyperlipidemia. He has never had symptoms like this previously. Vital signs on presentation showed a temperature of 97.2/heart rate 89/respiratory 18/blood pressure 185/83 and pulse ox was 100% on room air. CBC was completely unremarkable. CMP was completely unremarkable. NIH was 0. CT of the brain showed chronic involutional changes and a focal area of decreased attenuation in the left cerebellar hemisphere which it was recommended that acute ischemic infarct should be ruled out. CTA of the head and neck was unremarkable. EKG was sinus rhythm with a rate of 77, slightly prolonged MD interval with a first-degree heart block and a normal QTc. Case was discussed with [facility] neurology, Dr. Rubio and they recommended admission for stroke rule out. Patient was given 20 mg of labetalol in the emergency department x 1 dose. Patient does take amlodipine 5 mg daily for his blood pressure we will increase this to 10 mg tomorrow. Highly doubt this is going to be stroke related and may be just related to accelerated hypertension without hypertensive emergency. [facility] Medical History Wears glasses Arthritis Prostate disease High cholesterol History of hiatal hernia Heartburn Gastric reflux Former smoker History of stress test BPH (benign prostatic hyperplasia) Hypertension Perforation of sigmoid colon due to diverticulitis Home Medications ?Medication ?Instructions ?Recorded ?Last Taken ?Type tamsulosin 0.4 mg capsule 0.4 mg PO QHS URINATION 10/06/16 03/18/19 History amlodipine 5 mg tablet 5 mg PO DAILY BP 03/19/19 04/23/19 History rosuvastatin 10 mg tablet 10 mg PO DAILY cholesterol 03/19/19 03/19/19 History famotidine 20 mg tablet 20 mg PO QDAY acid reflux #90 08/21/23 Unknown Rx TABLETS Allergy/AdvReac Type Severity Reaction Status Date / Time metoclopramide (From Reglan) AdvReac AGITATION Verified 01/28/24 12:44 Family History Other Cancer Surgical History History of foot surgery S/P right rotator cuff repair History of bilateral knee replacement History of cholecystectomy S/P colectomy (~04/2019) Social History household members: spouse housing: house Smoking Status: Former smoker alcohol intake: never ROS Constitutional Constitutional: Denies anorexia, change in weight, chills, fatigue, fever(s), malaise, night sweats, weakness or other Eyes Eyes: Reports blurry vision; Denies change in eye color, change in vision, discharge from eye(s), double vision, erythema, eye pain, loss of vision or other ENT HEENT: Denies abnormal hearing, dysphagia, ear pain, epistaxis, headache(s), hearing loss, nasal congestion, nasal discharge, post nasal drip, sinus pressure, sore throat or other Cardiovascular Cardiovascular: Denies chest pain, claudication, dyspnea on exertion, edema, lightheadedness, orthopnea, palpitations, paroxysmal nocturnal dyspnea, rapid heart rate, syncope or other Respiratory/Chest Respiratory/Chest: Reports shortness of breath with exertion; Denies cough, dyspnea, excessive phlegm production, hemoptysis, productive cough, shortness of breath at rest, wheezing or other Gastrointestinal Gastrointestinal: Denies abdominal pain, coffee ground emesis, constipation, diarrhea, dyspepsia, hematemesis, hematochezia, loose stools, melena, nausea, vomiting or other Genitourinary Genitourinary: Denies burning urination, difficulty urinating, dysuria, hematuria, nocturia, urinary frequency, urinary hesitancy, urinary incontinence, urinary urgency or other Musculoskeletal Musculoskeletal: Denies arthralgias, back pain, joint pain, joint stiffness, joint swelling, myalgias, neck pain or other Neurologic Neurologic: Reports other Details: Altered vision as noted above ; Denies abnormal gait, abnormal speech, confusion, disequilibrium, dizziness, focal weakness, headache(s), numbness, paresthesias, seizure-like activity, seizures, syncope, tingling or tremor(s) Psychiatric Psychiatric: Denies anxiety, depression, homicidal ideation, suicidal ideation or other Endocrine Endocrinology: Denies change in body appearance, cold intolerance, excessive sweating, heat intolerance, polydipsia, polyuria or other Hematologic/Lymphatic Hematologic/Lymphatic: Denies anemia, easy bleeding, easy bruising, lymphadenopathy or other Allergic/Immunologic Allergic/Immunologic: Denies rhinitis, hives, eczemia, asthma or other Vital Signs Vital Signs Vital Signs: 01/28/24 12:44 01/28/24 13:00 01/28/24 13:04 Temperature 97.2 F L Temperature Source Temporal Pulse Rate 89 75 Respiratory Rate 18 16 Respiratory Effort Normal Non-Labored Respiratory Pattern Normal Blood Pressure 185/83 H 167/81 H Blood Pressure Mean 117 109 Pulse Ox 100 94 Oxygen Delivery Method Room Air Room Air 01/28/24 13:33 Temperature Temperature Source Pulse Rate 78 Respiratory Rate 16 Respiratory Effort Respiratory Pattern Blood Pressure 148/72 H Blood Pressure Mean 97 Pulse Ox 95 Oxygen Delivery Method Room Air Weight Weight: 90.537 kg Body Mass Index (BMI) 32.2 Physical Exam Const alert, oriented x3, no apparent distress, healthy appearing and well nourished; Negative for average body habitus Constitutional Narrative: Obese, older, white male, sitting up in bed, appears comfortable, nontoxic, at bedside General Appearance: cooperative HEENT normocephalic, head/scalp atraumatic, hearing grossly normal bilaterally, moist oral mucous membranes and oropharynx normal HEENT Narrative: Mallampati 3, no thrush Eyes PERRL, EOMs intact bilaterally and conjunctivae normal Eyes Narrative: No scleral icterus Neck no lymphadenopathy, supple and no carotid bruits Neck Narrative: Trachea midline, no thyroid enlargement Resp normal respiratory effort, no retractions, no use of accessory muscles and clear to auscultation bilaterally Auscultation: Negative for rales, rhonchi or wheezes Cardio regular rate, regular rhythm, S1 normal heart sound, S2 normal heart sound, no murmurs, no rub, no gallops and no clicks GI normal to inspection, nondistended, normoactive bowel sounds, soft to palpation and non-tender Extremity no clubbing, cyanosis or edema Extremity Narrative: 2+ pedal and radial pulses Neuro oriented x3, CN's II-XII intact bilaterally, moves all extremities and no focal motor deficits Neuro Narrative: No visual abnormalities but patient states his distance vision is still blurred slightly as compared to his baseline Speech: speech normal Motor Exam: strength 5/5 throughout Psych affect normal Psych Narrative: Very pleasant, interacts appropriately Results Lab / Micro Data 01/28/24 12:56 01/28/24 12:56 Labs: Laboratory Results - last 24 hr 01/28/24 12:56: WBC 7.9, RBC 4.70, Hgb 13.7, Hct 41.2, MCV 87.7, MCH 29.1, MCHC 33.3, RDW Std Deviation 40.2, RDW Coeff of Bradley 12.6, Plt Count 256, MPV 10.1, Immature Gran % (Auto) 0.400, Neut % (Auto) 63.3, Lymph % (Auto) 23.8, [place] % (Auto) 8.6, Eos % (Auto) 2.9, Baso % (Auto) 1.0, Absolute Neuts (auto) 5.0, Absolute Lymphs (auto) 1.88, Nucleated RBC % 0, PT 13.5, INR 1.0, APTT 26.6, Sodium 138 01/28/24 12:56: Sodium Cancelled, Potassium 4.1 01/28/24 12:56: Potassium Cancelled, Chloride 104 01/28/24 12:56: Chloride Cancelled, Carbon Dioxide 29.0 01/28/24 12:56: Carbon Dioxide Cancelled, Anion Gap 6 01/28/24 12:56: Anion Gap Cancelled, BUN 16 01/28/24 12:56: BUN Cancelled, Creatinine 0.88 01/28/24 12:56: Creatinine Cancelled, Estim Creat Clear Calc 77.60, Est GFR (MDRD) Af Amer 109 01/28/24 12:56: Est GFR (MDRD) Af Amer Cancelled, Est GFR (MDRD) Non-Af 90 01/28/24 12:56: Est GFR (MDRD) Non-Af Cancelled, BUN/Creatinine Ratio 18.2 01/28/24 12:56: BUN/Creatinine Ratio Cancelled, Glucose 108 H 01/28/24 12:56: Glucose Cancelled, Calcium 9.4 01/28/24 12:56: Calcium Cancelled 01/28/24 13:01: POC Glucose 83 Imaging Radiology Impression Brain CT 01/28/24 13:07 IMPRESSION: Chronic involutional changes of the brain. Focal area decreased attenuation in the left cerebellar hemisphere as described. Subacute ischemic changes should be ruled out. N.B. : The above Results were Read Back by Herrera Lopez MD to Kan Robledo MD, and understanding confirmed on 01/28/2024 13:24:05 (ET). Electronically Signed: Herrera Lopez MD at 13:25 EST , ADDENDUM: 01/28/24 1332 IMPRESSION: Chronic involutional changes of the brain. Focal area decreased attenuation in the left cerebellar hemisphere as described. Subacute ischemic changes should be ruled out. N.B. : The above Results were Read Back by Herrera Lopez MD to Kan Robledo MD, and understanding confirmed on 01/28/2024 13:24:05 (ET). Electronically Signed: Herrera Lopez MD at 13:25 EST , Head/Neck CTA 01/28/24 13:08 IMPRESSION: Normal CTA Head and neck with contrast. N.B. : The above Results were Read Back by Herrera Lopez MD to Kan Robledo and understanding confirmed on 01/28/2024 13:30:41 (ET). Electronically Signed: Herrera Lopez MD at 13:32 EST , ADDENDUM: 01/28/24 1339 IMPRESSION: Normal CTA Head and neck with contrast. N.B. : The above Results were Read Back by Herrera Lopez MD to Kan Robledo and understanding confirmed on 01/28/2024 13:30:41 (ET). Electronically Signed: Herrera Lopez MD at 13:32 EST , Assessment & Plan Assessment/Plan (1) Accelerated essential hypertension: (2) Blurred vision, bilateral: PLAN: Plan Bilateral blurred vision -Highly doubt stroke -CT shows possible cerebellar abnormality but would not affect vision -CTA head and neck unremarkable -More likely related to uncontrolled hypertension -Will increase amlodipine to 10 mg daily tomorrow and reassess -Continue NIH -MRI without contrast -Echocardiogram -Check hemoglobin A1c -Check lipid panel -Start aspirin 81 mg daily -Continue home rosuvastatin -Neurology consultation Accelerated hypertension -Suspect above symptoms may be related to this -Goal blood pressure will be 130/80 or less -Since my concern for stroke is low overall we will go ahead and address his blood pressure issues but increase his amlodipine to 10 mg daily -Dose will start tomorrow as he did get as needed labetalol in the emergency department to bring down his pressure -Check TSH -Check echocardiogram -As needed hydralazine and labetalol per stroke protocol Essential hypertension/hyperlipidemia -Continue home statin Check lipid panel -Blood pressure treatment as above Dyspnea on exertion -This has been ongoing for over a year -Recommend outpatient workup if persists after discharge -Discussed with patient and at the time of admission GERD -Continue home famotidine BPH with obstruction -Continue on Flomax History of tobacco abuse -Remote -Encouraged ongoing cessation Obesity -BMI 31.7 -Recommend weight loss -Complicates treatment, prognosis, outcomes DVT prophylaxis -Subcu enoxaparin CODE STATUS -DNR CCA okay for short-term intubation as discussed on admission Charges/Coding Visit Charges Inpatient E&M: 47968 Init Hosp L2
--- NOTE | 2024-01-28 13:57 | RAD_ITS ---
STUDY: X-RAY CHEST REASON FOR EXAM: Male, 74 years old. Neuro deficit, acute, stroke suspected TECHNIQUE: Single AP portable view of the chest. COMPARISON: Comparison is made with prior study dated July 13, 2022. FINDINGS: EKG electrodes are seen. The lungs are clear and expanded. There is no demonstrated pleural abnormality. Normal size heart. Normal mediastinum and hector. Normal visualized pulmonary arteries. Normal visualized aortic arch and descending thoracic aorta. There are diffuse degenerative changes of the visualized thoracic spine. Normal visualized ribs, clavicles, and shoulders. There is no demonstrated abnormality of the visualized soft tissue structures of the upper abdomen. RAD/Chest 1 View IMPRESSION: No acute abnormality is seen. Electronically Signed: Herrera Lopez MD at 14:09 EST ,
[2024-01-28 13:59] LABS: Bacteria 0 SEEN /hpf (None Seen); Mucous, Urine 0 SEEN /hpf (<or=2+); Red Blood Cells-Urine 0 SEEN /hpf (0-5); Squamous Epithelial Cells - UA 0 SEEN /hpf (0-5); White Blood Cells 0 SEEN /hpf (0-5)
[2024-01-28 14:00] LABS: Troponin-I HS 7 pg/mL (3.0-78.0)
--- NOTE | 2024-01-28 14:02 | ECHOD_ITS ---
Reason For Study: TIA/CVA Procedure This was a 2D Doppler, Color Flow transthoracic echocardiogram. Exam performed portable in patient room. Left Ventricle Normal LV size. Mild concentric left ventricular hypertrophy. Left ventricular systolic function is normal. The left ventricular ejection fraction is 70 %. No regional wall motion abnormalities noted. Right Ventricle Normal RV size. Normal systolic function. Atria Normal left atrium. Normal right atrium. Bubble contrast study is positive for PFO. Mitral Valve There is mild mitral annular calcification. Tricuspid Valve Normal tricuspid valve. Aortic Valve Trisinus/trileaflet aortic valve. Pulmonic Valve Normal pulmonic valve. Great Vessels Normal aortic root. The pulmonary artery is normal size. Normal inferior vena cava. Pericardium/Pleural No pericardial effusion. Medication Performed a rapid injection of agitated mix of 9 cc saline and 1cc air to assess for atrial septal defect. MMode/2D Measurements & Calculations LVIDd: 4.0 cm IVSd: 1.2 cm LVOT diam: 2.1 cm LVIDs: 2.5 cm LVPWd: 1.2 cm RVDd: 2.4 cm FS: 37.6 % LVOT area: 3.6 cm2 asc Aorta Diam: 3.1 cm LAV(MOD-bp): 54.9 ml LVAd ap4: 27.3 cm2 LAV(MOD-bp) Indexed: 27.5 ml/m2 LVLd ap4: 8.6 cm LAV(MOD-sp2): 57.3 ml EDV(MOD-sp4): 74.8 ml LAV(MOD-sp4): 52.0 ml EDV(sp4-el): 73.3 ml LVAs ap4: 12.9 cm2 LVLs ap4: 6.6 cm ESV(MOD-sp4): 20.9 ml ESV(sp4-el): 21.2 ml EF(MOD-sp4): 72.0 % EF(sp4-el): 71.1 % LVAd ap2: 26.2 cm2 SV(MOD-sp4): 53.9 ml SV(MOD-sp2): 45.5 ml LVLd ap2: 8.1 cm SI(MOD-sp4): 27.0 ml/m2 SI(MOD-sp2): 22.8 ml/m2 EDV(MOD-sp2): 72.7 ml EDV(sp2-el): 71.9 ml LVAs ap2: 14.6 cm2 LVLs ap2: 6.5 cm ESV(MOD-sp2): 27.3 ml ESV(sp2-el): 28.1 ml EF(MOD-sp2): 62.5 % SV(sp4-el): 52.1 ml Ao sinus diam: 3.[address] Junction: 2.6 cm LA dimension(2D): 3.6 cm LA A4 area: 19.5 cm2 RA A4 area: 8.9 cm2 TAPSE: 2.2 cm Time Measurements MV dec time: 0.19 sec Doppler Measurements & Calculations MV E max bryson: 81.1 cm/sec Lat Peak E' Bryson: 14.0 cm/sec Med Peak E' Bryson: 10.7 cm/sec MV A max bryson: 77.1 cm/sec E/E' lat: 5.8 E/E' med: 7.6 MV E/A: 1.1 MV dec slope: 425.5 cm/sec2 Ao V2 max: 131.9 cm/sec LV V1 max: 98.5 cm/sec Ao max P.0 mmHg LV V1 max P.9 mmHg Ao V2 mean: 96.0 cm/sec LV V1 mean P.3 mmHg Ao mean P.0 mmHg LV V1 mean: 70.9 cm/sec Ao V2 VTI: 29.5 cm LV V1 VTI: 24.0 cm AV (velocity ratio): 0.81 MOUNA(I,D): 2.9 cm2 MOUNA(V,D): 2.7 cm2 SV(LVOT): 85.1 ml PA V2 max: 148.2 cm/sec PI end-d bryson: 98.7 cm/sec TR max bryson: 272.7 cm/sec TR max P.7 mmHg ECHO/Echo Complete Interpretation Summary Normal LV size. Left ventricular systolic function is normal. The left ventricular ejection fraction is 70 %. Bubble contrast study is positive for PFO. Mild concentric left ventricular hypertrophy. Ordering Physician: Kiki Davis Referring Physician: Caridad Grace M.D. Performed By: Regine Lang RDCS
--- NOTE | 2024-01-28 14:02 | MRI_ITS ---
STUDY: MRI BRAIN WITHOUT CONTRAST REASON FOR EXAM: Male, 74 years old. Altered vision, HIGH BLOOD PRESSURE TECHNIQUE: Multiplanar multisequence imaging of the brain was performed without the administration of intravenous contrast. COMPARISON: Noncontrast head CT same date FINDINGS: The ventricles, cisterns, and sulci are prominent consistent with age-related volume loss. There is no restricted diffusion to suggest acute ischemia or infarction. No succeptibility artifict to suggest intracranial hemorrhage or mineralization. Major intracranial signal voids are preserved. There is scattered high T2/FLAIR signal seen in the periventricular deep white matter. There is no midline shift, mass effect, or extra axial fluid collections are seen. No CP angle or IAC mass is seen. The orbits are unremarkable. The sella turcica and craniovertebral junction are within normal limits. Mucous retention cyst left maxillary sinus. The mastoid air cells are clear. MRI/Brain without Contrast IMPRESSION: Chronic microvascular ischemic changes. No intracranial hemorrhage, acute infarct, or space occupying lesion seen on this noncontrast MRI of the brain. Electronically Signed: Gil Alvarez MD at 19:58 EST ,
[2024-01-28 14:06] LABS: Color, Urine Straw (Yellow); Glucose, Dipstick Normal (Normal); Ketone-Dipstick Negative (Negative); Leukocyte Esterase-Dipstick Negative /ul (Negative); Nitrite-Dipstick Negative (Negative); Occult Blood-Urine Negative /ul (Negative); Protein-Dipstick 15 mg/dl (Negative); Specific Gravity, Urine 1.005 (1.002-1.030); Urine Bilirubin Dipstick Negative (Negative); Urine Clarity Clear (Clear); Urine Urobilinogen Normal (Normal)
--- NOTE | 2024-01-28 14:33 | CM.ED ---
Social Work Reason for visit: Stroke alert This SW went to patients room to offer support to any family or friends that were with patient in the ED. Patients and son were at bedside. Both were appreciated of the visit, no concerns, questions, or needs identified. Lena Harvey, SHUTTLE OPERATOR, [employer]ES ACCOUNT EXECUTIVE
[2024-01-28 14:34] LABS: Hemoglobin A1c 5.7 % (3.8-5.6)
[2024-01-28] MEDS: Tamsulosin HCl 0.4 MG Capsule PO (21:59)
[2024-01-29 00:39] VITALS: BMI 31.6
[2024-01-29 02:00] VITALS: PULSE 56
[2024-01-29 03:00] VITALS: BP 152/81; PULSE 77; RESP 16; TEMP 36.4; O2SAT 97
[2024-01-29 06:24] LABS: Absolute Lymphocyte Count 1.43 X10^3/uL (0.83-4.51); Absolute Neutrophil Count 4.4 X10^3/uL (2.0-7.7); Basophil# 0.09 X10^3/uL; Basophil% 1.3 % (0-1); Eosinophil# 0.24 X10^3/uL; Eosinophils% 3.5 % (0-5); Hematocrit 39.7 % (40-54); Hemoglobin 13.2 g/dL (13.0-16.5); Lymphocyte # 1.43 X10^3/ul (0.83-4.51); Lymphocyte % 20.8 % (19-41); Mean Corp Hgb Conc 33.2 g/dL (32-36); Mean Corpuscular Hgb 28.9 pg (27.0-32.0); Mean Corpuscular Volume 87.1 fL (80-94); Mean Platelet Vol. 9.9 fl (6.2-12.0); Monocyte# 0.71 X10^3/uL; Monocyte% 10.3 % (0-10); NRBC Flagged by Analyzer 0 % (0-5); Neutrophil % 63.8 % (47-70); Platelet Count 253 K/mm3 (150-450); RBC Distribution Width CV 12.7 % (11.6-14.6); RBC Distribution Width SD 40.3 fl (35.1-43.9); Red Blood Count 4.56 M/mm3 (4.6-6.2); White Blood Count 6.9 K/mm3 (4.4-11.0)
[2024-01-29 06:50] LABS: ALB/GLOB Ratio 0.9 RATIO (0.9-2.4); AST(SGOT) 21 U/L (15-37); Alanine Aminotransfer ALT/SGPT 24 U/L (16-61); Albumin, Serum 3.6 g/dL (3.2-5.0); Alkaline Phosphatase 58 U/L (45-117); Anion Gap 4 (5-15); BUN 14 mg/dL (7-18); BUN/Creat Ratio 17.9 RATIO (10-20); Calcium,Total 9.5 mg/dL (8.5-10.1); Chloride 105 mmol/L (98-107); Cholesterol 130 mg/dL (200); Creatinine, Serum 0.78 mg/dL (0.70-1.30); EST Glomerular Filtration Rate 103 mL/min (>60); Est Glom Filt Rate - Afr Amer 124 mL/min (>60); Estimated Creatinine Clearance 84.65 ml/min; Globulin 3.9 g/dL (2.2-4.2); Glucose 100 mg/dL (74-106); High Density Lipoprotein 50 mg/dL; Magnesium 2.1 mg/dL (1.6-2.6); Phosphorus 2.8 mg/dL (2.5-4.9); Potassium 3.9 mmol/L (3.5-5.1); Protein, Total 7.5 g/dL (6.4-8.2); Sodium Level 136 mmol/L (136-145); Triglycerides 95 mg/dL; Very Low Density Lipoprotein 19 mg/dL (5-40)
[2024-01-29 07:08] VITALS: O2SAT 95
[2024-01-29 09:00] VITALS: BP 140/82; PULSE 67; RESP 16; TEMP 36.7; O2SAT 97
[2024-01-29] MEDS: amLODIPine 10 MG Tablet PO (09:04)
[2024-01-29] MEDS: Atorvastatin Calcium 20 MG Tablet PO (09:04)
[2024-01-29] MEDS: Enoxaparin 40 MG/0.4 ML Syringe SC (09:04)
[2024-01-29] MEDS: Aspirin 81 MG TAB.CHEW PO (09:04)
[2024-01-29] MEDS: Famotidine 20 MG Tablet PO (09:04)
--- NOTE | 2024-01-29 14:18 | DS.PCM_ITS ---
Providers Date of Admission: 01/28/24 Date of Discharge: 01/29/24 Primary Care Physician: Dr. Caridad Grace, Reason For Visit: ACUTE ONSET BLURRED VISION/UNCONTROLLED HTN Diagnosis Discharge Diagnosis (1) Accelerated essential hypertension: Status: Acute Code(s): I10 - Essential (primary) hypertension (2) Blurred vision, bilateral: Status: Acute Code(s): H53.8 - Other visual disturbances Plan #HTN #BPH #GERD #PFO Medications at Discharge Home Medications tamsulosin 0.4 mg capsule 0.4 mg PO QHS URINATION 10/06/16 rosuvastatin 10 mg tablet 10 mg PO DAILY cholesterol 03/19/19 famotidine 20 mg tablet 20 mg PO QDAY acid reflux #90 TABLETS 08/21/23 amlodipine 10 mg tablet 10 mg PO DAILY 30 days #30 tabs 01/29/24 Hospital Course Summary of Care Provided Minutes Spent on Discharge: 23 Hospital Course: Per HPI: EVI RENEE, is a 74 M who presented to the emergency department [facility] on 01/28/2024 due to altered vision. Patient reported that his vision was blurred bilaterally and he was having difficulty reading. Symptoms started at about 10:30 in the morning. He stated he took his blood pressure at the time and it was noted to be elevated which is atypical for him. He has been consistent with his home medications and has not missed any doses. He reported that his third blood pressure was in the 200s systolic so he decided come to the emergency department. He denied any speech issues or swallowing problems. He denied any tingling and numbness or weakness in any extremity as well. He does complain of chronic shortness of breath with exertion that has been ongoing for about a year but has not been further assessed. We did discuss that if this is persistent he should discuss this further with his primary care physician. He does have a remote history of tobacco abuse and currently is treated for hypertension and hyperlipidemia. He has never had symptoms like this previously. Vital signs on presentation showed a temperature of 97.2/heart rate 89/respiratory 18/blood pressure 185/83 and pulse ox was 100% on room air. CBC was completely unremarkable. CMP was completely unremarkable. NIH was 0. CT of the brain showed chronic involutional changes and a focal area of decreased attenuation in the left cerebellar hemisphere which it was recommended that acute ischemic infarct should be ruled out. CTA of the head and neck was unremarkable. EKG was sinus rhythm with a rate of 77, slightly prolonged ID interval with a first-degree heart block and a normal QTc. Case was discussed with [facility] neurology, Dr. Rubio and they recommended admission for stroke rule out. Patient was given 20 mg of labetalol in the emergency department x 1 dose. Patient does take amlodipine 5 mg daily for his blood pressure we will increase this to 10 mg tomorrow. Highly doubt this is going to be stroke related and may be just related to accelerated hypertension without hypertensive emergency. INTERVAL HISTORY: Symptoms resolved, patient had negative MRI, echo did show PFO, discussed with teleneurologist on the back line and it is not felt that patient had a stroke or neurologic event and there also is no indication for closure and no need for patient to follow-up with neurology. Discussed with patient and his and they verbalized understanding. Did increase his blood pressure medicine to 10 mg of amlodipine and he will take this on discharge. Patient overall feels well with no acute complaints Physical Exam Narrative General: Alert, oriented, no apparent distress HEENT: Atraumatic, normocephalic Eyes: Anicteric, normal conjunctiva, extraocular movements intact, pupils equal Neck: Supple Respiratory: Clear to auscultation bilaterally, normal respiratory effort Cardiovascular: Regular rate and rhythm GI: Soft, nontender, nondistended Extremities: No edema Musculoskeletal: Strength 5 out of 5 in right upper extremity, 5 out of 5 left upper extremity, 5 out of 5 right lower extremity, [] out of 5 left lower extremity Neuro: No overt focal neurological deficits, cranial nerves II through XII intact Skin: No rashes appreciated Psych: Cooperative Weight / BMI Weight Weight: 89 kg Body Mass Index (BMI) 31.6 ABG / Lab / Microbiology Data 01/29/24 05:54 01/29/24 05:54 Laboratory: Laboratory Results - last 24 hr 01/28/24 12:56: Hemoglobin A1c 5.7 H, TSH 2.010 01/29/24 05:54: WBC 6.9, RBC 4.56 L, Hgb 13.2, Hct 39.7 L, MCV 87.1, MCH 28.9, MCHC 33.2, RDW Std Deviation 40.3, RDW Coeff of Bradley 12.7, Plt Count 253, MPV 9.9, Immature Gran % (Auto) 0.300, Neut % (Auto) 63.8, Lymph % (Auto) 20.8, [place] % (Auto) 10.3 H, Eos % (Auto) 3.5, Baso % (Auto) 1.3 H, Absolute Neuts (auto) 4.4, Absolute Lymphs (auto) 1.43, Nucleated RBC % 0, Sodium 136, Potassium 3.9, Chloride 105, Carbon Dioxide 28.0, Anion Gap 4 L, BUN 14, Creatinine 0.78, Estim Creat Clear Calc 84.65, Est GFR (MDRD) Af Amer 124, Est GFR (MDRD) Non-Af 103, BUN/Creatinine Ratio 17.9, Glucose 100, Calcium 9.5, Phosphorus 2.8, Magnesium 2.1, Total Bilirubin 0.60, AST 21, ALT 24, Alkaline Phosphatase 58, Total Protein 7.5, Albumin 3.6, Globulin 3.9, Albumin/Globulin Ratio 0.9, Triglycerides 95, Cholesterol 130, LDL Cholesterol 61, VLDL Cholesterol 19, HDL Cholesterol 50 Radiography Diagnostic Testing: Radiology Impression Brain MRI 01/28/24 14:02 IMPRESSION: Chronic microvascular ischemic changes. No intracranial hemorrhage, acute infarct, or space occupying lesion seen on this noncontrast MRI of the brain. Electronically Signed: Gil Alvarez MD at 19:58 EST Reading Location ID and State: [id number] [facility] Tel , Service support , Echocardiogram 01/28/24 14:02 Interpretation Summary Normal LV size. Left ventricular systolic function is normal. The left ventricular ejection fraction is 70 %. Bubble contrast study is positive for PFO. Mild concentric left ventricular hypertrophy. Ordering Physician: Kiki Davis Referring Physician: Caridad Grace M.D. Performed By: Regine Lang RDCS D/C Instructions Discharge Diet: No restrictions DC O2, CPAP, BIPAP Needs Additional Home O2 Discharge instructions: No DC home with Oxygen: No Meaningful Use Info Meaningful Use Meaningful Use Diagnoses (Choose all that apply): None applicable Ischemic Stroke Statin Dosing Therapy Reference: STATIN DOSE THERAPY REFERENCE: * Patients > 75 years receive moderate or high dose statin therapy. * Patients 75 years or YOUNGER should receive HIGH intensity statin dose unless contraindicated. You will be required to document reason for non-treatment if statin daily dose does not meet guidelines. HIGH DOSE STATIN THERAPY DAILY Atorvastatin > than or = to 40 mg Rosuvastatin > than or = to 20 mg Amlodipine + Atorvastatin > than or = to 2.5/40 mg Ezetimibe + Simvastatin 10/80 mg Simvastatin 80mg Discharge Plan Admission Admit Date/Time: 01/28/24 13:55 Primary Reason for Your Visit: bilateral blurry vision Attending Provider: Katlin Cage Primary Care Provider: Caridad Grace Consulting Providers: Kiki Davis Instructions Patient Instructions: ED High Blood Pressure Hypertension Additional Instructions / Restrictions: DISCHARGE INSTRUCTIONS PLEASE READ *Please take this with you to your next doctors appointment* -Your amlodipine has been increased to 10 mg daily -Please call your primary care provider's office upon discharge to schedule a hospital follow up within 1 week. -For any concerning signs or symptoms please call 911 or proceed to the nearest emergency department Discharge Orders/Prescriptions Prescriptions: New amlodipine 10 mg Tablet 10 mg PO DAILY 30 Days Qty: 30 0RF Continued tamsulosin 0.4 MG capsule 0.4 mg PO QHS Patient Comments: rosuvastatin 10 MG tablet 10 mg PO DAILY Patient Comments: TAKE 1 TABLET BY MOUTH EVERY DAY famotidine 20 mg tablet 20 mg PO QDAY Qty: 90 2RF Discontinued amlodipine 5 MG tablet 5 mg PO DAILY Referrals / Follow Up: Caridad Grace DO [Primary Care Provider] - Within 1 Week Disposition Disposition (needs filled in before D/C Order can be placed): Home, Self Care Charges/Coding Visit Charges Inpatient E&M: 06486 Disch Hosp
--- NOTE | 2024-01-29 14:24 | PHA.DC.MR.R ---
Pharmacy OR Med Reconciliation Pharmacy Service has performed discharge medication reconciliation for this patient. The patient's discharge medication list was reviewed for discrepancies and discrepancies were resolved. Medications at Discharge Home Medications tamsulosin 0.4 mg capsule 0.4 mg PO QHS URINATION 10/06/16 rosuvastatin 10 mg tablet 10 mg PO DAILY cholesterol 03/19/19 famotidine 20 mg tablet 20 mg PO QDAY acid reflux #90 TABLETS 08/21/23 amlodipine 10 mg tablet 10 mg PO DAILY 30 days #30 tabs 01/29/24
--- NOTE | 2024-01-29 14:42 | CASEMGMT ---
Met with patient to complete CHANG form. CHANG form explained to patient who voiced understanding and signed form. Original form placed in pt?s chart and copy provided to patient. Kira [place], Discharge Planning Asst
[2024-01-29 14:45] VITALS: BMI 31.6
[2024-01-29] MEDS: FLU VACCINE **HIGH DOSE** TV 24-25 180 MCG/0.5 ML SYRINGE IM (14:57)
[2024-01-29 15:00] VITALS: BP 133/74; PULSE 69; RESP 16; TEMP 36.7; O2SAT 96
--- NOTE | 2024-01-29 15:17 | CASEMGMT ---
Patient has order for discharge. RN CM in to discuss needs at discharge. Patient up independent in room, at bedside. Patient denies needs or help at discharge. Patient had no further questions or concerns.
== END 2024-01-29 14:18 | disposition home or self-care (01) ==
LOC: ED 14:02 → PCU 14:14
PROVIDERS: Admitting Provider Internal Medicine; Emergency Provider Emergency Medicine; PCP Internal Medicine; Visit Provider Internal Medicine
DX: I10 Essential (primary) hypertension (principal); N40.1 Benign prostatic hyperplasia with lower urinary tract symptoms; E78.00 Pure hypercholesterolemia, unspecified; Z87.891 Personal history of nicotine dependence; R06.02 Shortness of breath; I44.0 Atrioventricular block, first degree; H53.8 Other visual disturbances; Z79.899 Other long term (current) drug therapy; K21.9 Gastro-esophageal reflux disease without esophagitis; N13.8 Other obstructive and reflux uropathy; E66.9 Obesity, unspecified; Z68.31 Body mass index [BMI] 31.0-31.9, adult; Z23 Encounter for immunization
CPT/HCPCS: 36415; 70450; 70496; 70498; 70551; 71045; 80048; 80053; 80061; 81001; 82962; 83036; 83735; 84100; 84443; 84484; 85025; 85610; 85730; 90662; 93005; 93306; 94668; 94762; 96372; 99221; 99285; Q9957; Q9967; A4216; G0378

== ENCOUNTER 2024-06-27 22:22 | Emergency (ER) | payer MEDICARE, OTHER, SELFPAY ==
[2024-06-27 22:25] VITALS: BP 186/77; PULSE 95; RESP 20; TEMP 36.4; O2SAT 96; BMI 31.5
--- NOTE | 2024-06-27 22:57 | CT_ITS ---
PROCEDURE: ABDOMEN/PELVIS W IV CONT ONLY N/A REASON FOR EXAM: LLQ PAIN TECHNIQUE: Abdomen and pelvis CT with intravenous contrast. Coronal and Sagittal reconstruction series were provided. PATIENT PREPARATION: Per protocol ORAL CONTRAST TYPE: None. CONTRAST: 82 cc Isovue 370 IV One or more dose reduction techniques were used (e.g., Automated exposure control, adjustment of the mA and/or kV according to patient size, use of iterative reconstruction technique. RADIATION DOSE SUMMARY: CTDlvol: 20.84 mGy DLP: 1070.53 mGycm COMPARISON: None available FINDINGS: Mild dependent basilar atelectasis. The liver, adrenal glands, pancreas, spleen and kidneys appear within limits. A couple of incidental hepatic cysts noted. Status post cholecystectomy. Bilateral symmetric nephrograms without hydronephrosis. Bilateral symmetric appearing perinephric stranding, edema, nonspecific. Abdominal aortic atherosclerotic calcification without aneurysm. No adenopathy. No bowel dilation or free air. Normal caliber appendix without secondary signs. Previous partial sigmoid resection. Diverticulosis without diverticulitis. The bladder appears within limits. No free fluid. Prostate appears mildly large in size at 5 cm. Small fat containing umbilical hernia without significant appearing stranding. Small fat containing left inguinal hernia without stranding. Visualized osseous structures appear within limits. CT/Abdomen/Pelvis W IV Cont ONLY IMPRESSION: No evidence of acute intra-abdominal process. Status post partial sigmoid resection with note of diverticulosis without diver ticulitis. Small fat containing left inguinal hernia without stranding. Reading Location: [id number]
--- NOTE | 2024-06-27 22:57 | EKG12_ITS ---
Test Reason : HTN Blood Pressure : */* mmHG Vent. Rate : 73 BPM Atrial Rate : 73 BPM P-R Int : 206 ms QRS Dur : 88 ms QT Int : 384 ms P-R-T Axes : 72 56 35 degrees QTcB Int : 423 ms Normal sinus rhythm Normal ECG Confirmed by MOISES BAKER, DIANA ([id number]), video tape editor ELEUTERIO GARZA ([id number]) on 06/30/2024 8:44:22 AM Referred By: Confirmed By: DIANA DE LEON MD
[2024-06-27] MEDS: 0.9% Normal Saline (1000mL) 1,000 ML 999 ML IV (23:05)
[2024-06-27 23:07] LABS: Absolute Lymphocyte Count 2.24 X10^3/uL (0.83-4.51); Basophil% 1.2 % (0-1); Eosinophil# 0.22 X10^3/uL; Eosinophils% 2.6 % (0-5); Hematocrit 37.8 % (40-54); Hemoglobin 12.9 g/dL (13.0-16.5); Lymphocyte # 2.24 X10^3/ul (0.83-4.51); Lymphocyte % 26.6 % (19-41); Mean Corp Hgb Conc 34.1 g/dL (32-36); Mean Corpuscular Hgb 29.2 pg (27.0-32.0); Mean Corpuscular Volume 85.5 fL (80-94); Mean Platelet Vol. 10.2 fl (6.2-12.0); Monocyte# 0.81 X10^3/uL; Monocyte% 9.6 % (0-10); NRBC Flagged by Analyzer 0 % (0-5); Neutrophil # 5.02 X10^3/uL (2.7-7.7); Neutrophil % 59.6 % (47-70); Platelet Count 264 K/mm3 (150-450); RBC Distribution Width CV 12.9 % (11.6-14.6); RBC Distribution Width SD 39.9 fl (35.1-43.9); Red Blood Count 4.42 M/mm3 (4.6-6.2); White Blood Count 8.4 K/mm3 (4.4-11.0)
[2024-06-27 23:12] LABS: Bacteria 0 SEEN /hpf (None Seen); Mucous, Urine 0 SEEN /hpf (<or=2+); Red Blood Cells-Urine 0 SEEN /hpf (0-5); White Blood Cells 0 SEEN /hpf (0-5)
[2024-06-27 23:22] LABS: Glucose, Dipstick Normal (Normal); Ketone-Dipstick Negative (Negative); Leukocyte Esterase-Dipstick Negative /ul (Negative); Nitrite-Dipstick Negative (Negative); Occult Blood-Urine Negative /ul (Negative); Protein-Dipstick 15 mg/dl (Negative); Specific Gravity, Urine 1.015 (1.002-1.030); Urine Bilirubin Dipstick Negative (Negative); Urine Urobilinogen Normal (Normal)
[2024-06-27 23:33] LABS: Anion Gap 12 (5-15); BUN 17 mg/dL (4-19); BUN/Creat Ratio 16.4 RATIO (10-20); Calcium,Total 9.6 mg/dL (7.6-11.0); Carbon Dioxide 24.7 mmol/L (21.0-32.0); Chloride 101 mmol/L (98-108); Creatinine, Serum 1.03 mg/dL (0.70-1.20); EST Glomerular Filtration Rate 76 (>60); Estimated Creatinine Clearance 67.82 ml/min (50-250); Glucose 118 mg/dL (70-99); Potassium 4.2 mmol/L (3.3-5.1); Sodium Level 138 mmol/L (133-145)
[2024-06-27 23:59] LABS: Color, Urine Straw (Yellow); Squamous Epithelial Cells - UA 0-5 SEEN /hpf (0-5); Urine Clarity Clear (Clear)
[2024-06-28 00:25] VITALS: BP 153/85; PULSE 68; RESP 16; O2SAT 95
--- NOTE | 2024-06-28 00:49 | EDS_ITS ---
HPI History of Present Illness Chief Complaint: Hypertension Informant: patient and spouse/S.O. Narrative Narrative: Patient is a 74-year-old male with past medical history of GERD hypertension BPH and previous diverticulitis with perforation. He states that he was admitted to the hospital a few months ago secondary to his hypertension and placed on 10 mg of amlodipine. He states his family doctor asked him to reduce this to 5 mg as it was felt it was too large of a dose. He states that he has been doing the 5 mg but has noticed his blood pressure has been increasing. He also states he has been noticing a little bit of intermittent left-sided abdominal pain. He states he is unsure if this is related to return of diverticulitis and he is also uncertain of if he should be continuing his amlodipine or having a dose elevated based on his increased blood pressure and therefore comes in for evaluation. [facility] Medical History (Updated 06/29/24 @ 17:[address] Luc Maher DO) PFO (patent foramen ovale) Wears glasses Arthritis Prostate disease High cholesterol History of hiatal hernia Heartburn Gastric reflux Former smoker History of stress test BPH (benign prostatic hyperplasia) Hypertension Perforation of sigmoid colon due to diverticulitis Home Medications ?Medication ?Instructions ?Recorded ?Last Taken ?Type tamsulosin 0.4 mg capsule 0.4 mg PO QHS URINATION 09/1003/18/19 History rosuvastatin 10 mg tablet 10 mg PO DAILY cholesterol 0 03/19/19 03/19/19 History famotidine 20 mg tablet 20 mg PO QDAY acid reflux #9 0 08/21/23 Unknown Rx TABLETS amlodipine 10 mg tablet 10 mg PO DAILY 30 days #30 t abs 01/29/24 Unknown Rx Allergy/AdvReac Type Severity Reaction Status Date / Time metoclopramide (From Reglan) AdvReac AGITATION Verified 06/27/24 22:25 Family History Other Cancer Surgical History History of foot surgery S/P right rotator cuff repair History of bilateral knee replacement History of cholecystectomy S/P colectomy (~04/2019) Social History household members: spouse housing: house Smoking Status: Former smoker alcohol intake: never ROS ROS ED Constitutional Constitutional ED: Denies chills or fever(s) Eyes Eyes: Denies blurry vision or change in vision ENT ENT ED: Denies sore throat Cardiovascular Cardiovascular: Denies chest pain Respiratory/Chest Respiratory/Chest: Denies cough or dyspnea Gastrointestinal Gastrointestinal: Reports abdominal pain; Denies diarrhea, nausea or vomiting Genitourinary Genitourinary ED: Denies dysuria Musculoskeletal Musculoskeletal: Denies myalgias Integumentary Denies rash Neurologic Neurologic: Denies headache(s) Hematologic/Lymphatic Hematologic/Lymphatic: Denies easy bleeding or easy bruising EXAM Physical Exam Const Vital Signs: 06/27/24 22:25 06/27/24 22:44 Temperature 97.6 F L Temperature Source Temporal Pulse Rate 95 Respiratory Rate 20 H Respiratory Effort Normal Non-Labored Respiratory Pattern Normal Blood Pressure 186/77 H Blood Pressure Mean 113 Pulse Ox 96 Oxygen Delivery Method Room Air Positive well nourished and well developed General Appearance ED: well developed; Negative for pallor HEENT HEENT Narrative: Normocephalic atraumatic No tongue or lip swelling no oral lesions no airway edema or compromise No signs of infection noted in the posterior pharynx Eyes PERRL and EOMs intact bilaterally General Eye ED: Negative for scleral icterus Neck supple Resp normal respiratory effort and clear to auscultation bilaterally Cardio regular rate and regular rhythm Rate: other Other Details: Heart is regular rate and rhythm Radial and carotid pulses are equal and symmetric No carotid bruit noted GI non-distended and no masses GI Narrative: Abdomen is soft and nondistended with normal active bowel sounds. There is faint lynn palpation in the left lower quadrant without voluntary guarding or rigidity or pulsatile mass Auscultation: normoactive bowel sounds Palpation: soft Back/Spine no CVA tenderness Extremity normal to inspection Extremity Narrative: Negative Homans' sign bilaterally Neuro oriented x3, CN's II-XII intact bilaterally and no sensory deficits noted Neuro Narrative: GCS of 15 Cranial nerves II through XII are grossly intact without focal neurologic deficit No pronator drift no dysmetria no truncal ataxia NIH stroke scale score of 0 Sensorium / Orientation: alert Motor Exam: strength 5/5 throughout Psych Mood & Affect: anxious Skin no rashes or lesions noted General Skin Exam: Negative for jaundice or pallor MDM MDM MDM Narrative Medical decision making narrative: Patient arrived to the ER slightly hypertensive but otherwise with stable vitals. He has a known history of hypertension and reports it has been elevated recently. In order to rule out signs of endorgan damage such as acute coronary syndrome or acute kidney injury basic blood work was obtained as well as an EKG. as his neurologic exam is normal there is no signs of hypertensive encephalopathy and as he does not have a headache there is low concern for spontaneous subarachnoid or subdural hemorrhage so there is no need for head CT. In order to ensure that his abdominal pain is not secondary to return of diverticulitis a CT scan was obtained as well. Blood work revealed no signs of endorgan damage and CT scan revealed no signs of acute diverticulitis. The patient reported taking an extra amlodipine prior to arrival and without providing any extra medication in the ER his blood pressure reduced to a normal value. Therefore at this time as he has no signs of endorgan damage, his blood pressure has improved with him taking his home medication, and there is no secondary infection there is no need for further evaluation in the ER and patient is otherwise safe for discharge with outpatient follow-up History & Record Review Discussion w/independent historian: Patient and Significant other Lab Data Attestation: I reviewed the patient's lab results. Labs: Laboratory Results - last 24 hr 06/27/24 06/27/24 22:51 23:03 WBC 8.4 RBC 4.42 L Hgb 12.9 L Hct 37.8 L MCV 85.5 MCH 29.2 MCHC 34.1 RDW Std Deviation 39.9 RDW Coeff of Bradley 12.9 Plt Count 264 MPV 10.2 Immature Gran % (Auto) 0.400 Neut % (Auto) 59.6 Lymph % (Auto) 26.6 Keith % (Auto) 9.6 Eos % (Auto) 2.6 Baso % (Auto) 1.2 H Absolute Neuts (auto) 5.0 Absolute Lymphs (auto) 2.24 Nucleated RBC % 0 Sodium 138 Potassium 4.2 Chloride 101 Carbon Dioxide 24.7 Anion Gap 12 BUN 17 Creatinine 1.03 Estim Creat Clear Calc 67.82 Est GFR (MDRD) Non-Af 76 BUN/Creatinine Ratio 16.4 Glucose 118 H Calcium 9.6 Urine Color Straw Urine Clarity Clear Urine pH 6.0 Ur Specific [place] 1.015 Urine Protein 15 H Urine Glucose (UA) Normal Urine Ketones Negative Urine Occult Blood Negative Urine Nitrite Negative Urine Bilirubin Negative Urine Urobilinogen Normal Ur Leukocyte Esterase Negative Urine RBC 0 SEEN Urine WBC 0 SEEN Ur Squamous Epith Cells 0-5 SEEN Urine Bacteria 0 SEEN Urine Mucus 0 SEEN Radiography Diagnostic Testing: Clinical Impression(s) from Imaging Studies Abdomen/Pelvis CT 06/27/24 22:57 IMPRESSION: No evidence of acute intra-abdominal process. Status post partial sigmoid resection with note of diverticulosis without diverticulitis. Small fat containing left inguinal hernia without stranding. Reading Location: [facility] Discharge Plan Triage Chief Complaint: Hypertension ED Provider: Luc Maher Dx/Rx/DC Orders Clinical Impression: Accelerated essential hypertension, Abdominal pain, GERD (gastroesophageal reflux disease), BPH (benign prostatic hyperplasia) Instructions: ED Hypertension, Established Prescriptions: No Action tamsulosin 0.4 MG capsule 0.4 mg PO QHS Patient Comments: rosuvastatin 10 MG tablet 10 mg PO DAILY Patient Comments: TAKE 1 TABLET BY MOUTH EVERY DAY amlodipine 10 mg Tablet 10 mg PO DAILY 30 Days Qty: 30 0RF famotidine 20 mg tablet 20 mg PO QDAY Qty: 90 2RF Primary Care Provider: Caridad Grace Referrals: Caridad Grace DO [Primary Care Provider] - Activity Restrictions/Additional Instructions: ER workup showed no signs of endorgan damage from your hypertension. Please talk to your family doctor about adding further blood pressure medications for improved control. Return to the ER should you have any further concerns Print Language: Luxembourger Disposition Disposition: Home, Self Care Discharge Date/Time: 06/28/24 01:01
[2024-06-28 00:59] VITALS: BP 133/79; PULSE 67; RESP 16; TEMP 36.6; O2SAT 96
== END 2024-06-28 01:01 | disposition home or self-care (01) ==
PROVIDERS: Emergency Provider Emergency Medicine; PCP Internal Medicine; Visit Provider Emergency Medicine
DX: I10 Essential (primary) hypertension (principal); R10.9 Unspecified abdominal pain; N40.0 Benign prostatic hyperplasia without lower urinary tract symptoms; E78.00 Pure hypercholesterolemia, unspecified; Z87.891 Personal history of nicotine dependence; K21.9 Gastro-esophageal reflux disease without esophagitis; K44.9 Diaphragmatic hernia without obstruction or gangrene; Z90.49 Acquired absence of other specified parts of digestive tract; Q21.12 Patent foramen ovale; Z87.19 Personal history of other diseases of the digestive system
CPT/HCPCS: 74177; 80048; 81001; 85025; 93005; 96360; 96361; 99283; Q9967; A4216

== ENCOUNTER 2024-10-02 08:11 | Day surgery (SDC) | payer MEDICARE, SELFPAY ==
--- NOTE | 2024-09-29 14:47 | PAT.ANE_ITS ---
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 When Was Last Pacemaker Check QUESTION #4 FULL TEXT: You/Your Family Experience fever (hyperthermia) with Anesthesia Last Oral Intake Last Oral intake: Last Oral Intake NPO since Meds taken in AM with sips of water? Meds patient instructed to take am of surgery PONV PONV - power line installer: PONV - power line installer Female No 09/29/24 11:24 HX of Motion Sickness No 09/29/24 11:24 HX of N/V After Surgery No 09/29/24 11:24 Non-Smoker Yes 09/29/24 11:24 Duration of Surgery greater No 09/29/24 11:24 than 60 minutes Number of Risk Factors 1 09/29/24 11:24 PONV Score Low Risk 09/29/24 11:24 Height & Weight Height & Weight: Anesthesia: Height & Weight Height 5 ft 7 in 06/27/24 22:25 Respiratory Assessment Respiratory Assessment - power line installer: Respiratory Tract Infection Hx - power line installer Hx Respiratory Tract Infection No 09/29/24 11:24 STOP Sleep Apnea STOP Sleep Apnea - power line installer: STOP Sleep Apnea - power line installer Hx Hypertension Yes: CONTROLLED WITH MED 09/29/24 11:24 Hx Sleep Apnea No 09/29/24 11:24 CPAP No 01/28/24 14:51 BIPAP Do you snore loudly (louder No 09/29/24 11:24 than talking or can be heard Do you often feel tired/ No 09/29/24 11:24 fatigued/ sleepy during daytime? Has anyone observed you stop No 09/29/24 11:24 breathing during sleep? STOP Results Negative 09/29/24 11:24 QUESTION #5 FULL TEXT : Do you snore loudly (louder than talking or can be heard through closed doors)? 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 Specify any problems Hx of Preganancy in last 3 N/A 09/29/24 11:24 Months Nurse Filling Out Transfusion NBUCHER 09/29/24 11:24 & Questions: Date: 09/29/24 09/29/24 11:24 Time: 11:09/29/24 11:24 Patient unable to answer at this time (ie. confused, unrespo /Reproduction History /Reproductive History - power line installer: /Reproductive Hx- power line installer Hx Now No 09/29/24 11:24 Gestational Age (in weeks): EDC: Hx Hx Para Hx Section SAB No 09/29/24 11:24 PFSH Medical History (Updated 09/29/24 @ 11:29 by Evelina Esquivel) History of diverticulitis History of echocardiogram PFO (patent foramen ovale) Wears glasses Arthritis Prostate disease High cholesterol History of hiatal hernia Heartburn Gastric reflux Former smoker History of stress test BPH (benign prostatic hyperplasia) Hypertension Perforation of sigmoid colon due to diverticulitis Home Medications Medication Instructions Recorded Last Taken Type tamsulosin 0.4 mg capsule 0.4 mg PO QHS URINATION 09/1003/18/19 History rosuvastatin 10 mg tablet 10 mg PO DAILY cholesterol 0 03/19/19 03/19/19 History lansoprazole 15 mg capsule,delayed 15 mg PO QDAY 07/31 Unknown History release losartan 25 mg tablet 25 mg PO QDAY 07/31/24 Unkno wn History amlodipine 5 mg tablet 5 mg PO DAILY 09/29/24 Unkno wn History Allergy/AdvReac Type Severity Reaction Status Date / Time metoclopramide (From Reglan) AdvReac AGITATION Verified 09/29/24 11:22 Family History Other Cancer Surgical History (Updated 09/29/24 @ 11:29 by Evelina Esquivel) History of colonoscopy History of esophagogastroduodenoscopy (EGD) History of foot surgery S/P right rotator cuff repair History of bilateral knee replacement History of cholecystectomy S/P colectomy (~04/2019) Social History household members: spouse housing: house Smoking Status: Former smoker alcohol intake: never Audit: Pertinent Findings Pertinent Findings EKG Perinent findings: 06/27/2024. Normal sinus rhythm. Echo (EF%) pertinent findings: 01/28/2024. EF of 70%. No aortic stenosis noted. Recommendation Anesthesia Recommendation Anesthesia recommendation: OPTIMIZED for anesthesia
[2024-10-02] VITALS (8 sets, daily range): BP systolic 86–136; BP diastolic 56–78; PULSE 51–61; RESP 14–16; TEMP 36.1–36.4; O2SAT 95–98; BMI 29.3
--- NOTE | 2024-10-02 08:29 | PCM.HP.STD ---
HPI - General General Date of Admission: 10/02/24 Date of Service: 10/02/24 Chief Complaint: Dill's esophagus and GERD HPI Narrative EVI RENEE, is a 74 M who presents for surveillance of Dill's esophagus. [facility] hospitalization 03.19.19-03.21.19 for management of acute diverticulitis with microperforation not requiring surgical intervention; notes this being third recent/acute episode. CT abd/pel 03.19.19 stable 1.8cm hepatic cyst; small hiatal hernia; acute diverticulitis with peritoneal air bubbles, contained perforation. [facility] outpatient: Colonoscopy 04.18.19 hemorrhoids; colonic diverticulosis. Laparoscopic sigmoid colectomy 04.23.19 [facility] ED 5.. with chest pain for two weeks that initially started with belching with positional worsening. Known history of hiatal hernia and GERD. Cardiology etiology r/o. No acute etiology found and discharged with instruction to follow up with GI. Biochemical CBC, DDImer, LFT, troponin, lipase WNL. CT abd/pel hepatic cysts, stable; RS anastomosis noted. PCP workup: Barium swallow 08.01.22 without hiatal hernia and normal motility. *BGI established 6.30.23 with new onset heartburn for several months; lansoprazole BID ineffective in management. No difficulty with diverticulitis since colectomy. Start fiber BID GET 7.10.23 29.70 minutes Contact 7.. with results; feels well at this time. EGD and Nevarez 8..23 short-segment Dill’s, metaplasia +; abnormal esophageal motility; small hiatal hernia Nevarez DeMeester total 35.6; Day one DeMeester 19 upright>supine; Day two DeMeester 53.2 upright<supine Contact 8..23 Start PPI; possible manometry if he has dysphagia OV 11..23 he has been having a lot of belching at night with some chest discomfort. PPI started but reports increase of nausea and belching and stopped. Denies dysphagia. OV 5.20.24 pt denies GI symptoms of concern at this time. Pt continues with Famotidine daily. Pt reports 2 formed bm per day, denies blood in the stool. abd/pelvis CT 06.27.24 No evidence of acute intra-abdominal process. Status post partial sigmoid resection with note of diverticulosis without diverticulitis. Small fat containing left inguinal hernia without stranding. OV 5.22.25 pt reports that he is feeling well, notes increased gas and feeling like "air is trapped in his throat". Pt denies other GI symptoms of concern at this time. pt continues with lansoprazole. [facility] Medical History History of diverticulitis History of echocardiogram PFO (patent foramen ovale) Wears glasses Arthritis Prostate disease High cholesterol History of hiatal hernia Heartburn Gastric reflux Former smoker History of stress test BPH (benign prostatic hyperplasia) Hypertension Perforation of sigmoid colon due to diverticulitis Home Medications Medication Instructions Recorded Last Taken Type tamsulosin 0.4 mg capsule 0.4 mg PO QHS URINATION 10/06/16 03/18/19 History rosuvastatin 10 mg tablet 10 mg PO DAILY cholesterol 03/19/19 03/19/19 History lansoprazole 15 mg capsule,delayed 15 mg PO QDAY 07/31/24 Unknown History release losartan 25 mg tablet 25 mg PO QDAY 07/31/24 Unknown History amlodipine 5 mg tablet 5 mg PO DAILY 09/29/24 Unknown History Allergy/AdvReac Type Severity Reaction Status Date / Time metoclopramide (From Reglan) AdvReac AGITATION Verified 09/29/24 11:22 Family History Other Cancer Surgical History History of colonoscopy History of esophagogastroduodenoscopy (EGD) History of foot surgery S/P right rotator cuff repair History of bilateral knee replacement History of cholecystectomy S/P colectomy (~04/2019) Social History household members: spouse housing: house Smoking Status: Former smoker alcohol intake: never ROS Constitutional Constitutional: Denies fatigue, fever(s), poor appetite, weight gain or weight loss Gastrointestinal Gastrointestinal: Denies belching, bloating, change in bowel habits, change in stool character, chewing difficulty, coffee ground emesis, constipation, cramping, diarrhea, dyspepsia, dysphagia, early satiety, excessive flatus, fecal incontinence, heartburn, hematemesis, hematochezia, hemorrhoids, loose stools, melena, nausea, odynophagia, rectal bleeding, tenesmus, vomiting or weight changes Physical Exam Const alert, oriented x3, no apparent distress and healthy appearing General Appearance: cooperative GI normal to inspection, nondistended, normoactive bowel sounds, soft to palpation, non-tender and non-distended Percussion: normal to percussion Rectal Exam: deferred Assessment & Plan Assessment/Plan (1) Barretts esophagus: (2) GERD (gastroesophageal reflux disease): (3) Abdominal pain: PLAN: Assessment and Plan Assessment and Plan (1) GERD (gastroesophageal reflux disease): Status: Chronic Plan: He is having symptoms of gastroesophageal reflux disease and possibly secondary to underlying gastroparesis. He will have a gastric emptying study and also have biochemical work-up and will perform an upper endoscopy to evaluate his upper GI tract. His gastric emptying study was normal. His upper endoscopy did show some mild reflux disease but it also displayed short segment Dill's esophagus. His Nevarez study had showed that he has reflux disease mostly in the upright position during day 1 and more in the supine position on day 2. His DeMeester score was 17 on day 1 and 15 on day 2. We started famotidine 20 mg p.o. once daily and transition him to lansoprazole 30 mg a day. He is not having any reflux symptoms at this time. (2) Barretts esophagus: Status: Chronic Plan: We will set him up for surveillance of his Dill's esophagus. (3) Perforation of sigmoid colon due to diverticulitis: Status: Resolved Plan: He is not having any problems with constipation at this time he has taken fiber as needed. We will continue to recommend him to take Fiber Choice in the morning and at night. (4) Abdominal pain: Status: Acute Plan: Differential diagnosis for his abdominal pain does include bile induced gastritis, exocrine pancreatic insufficiency, bacterial overgrowth in the setting of a surgery for perforated diverticulitis
[2024-10-02] MEDS: Lactated Ringers 1,000 ML 15 ML IV (08:53)
--- NOTE | 2024-10-02 09:14 | PRE.ANES_ITS ---
ASA Classification* ASA Classification ASA Classification: 2 Assessment & Plan Anesthesia* Anesthesia Assessment Anesthesia Assessment: Discussed sedation and/or anesthesia options, risks, benefits, and alternatives with patient/parents/legal guardian/POA. Questions invited. The patient/parents/legal guardian/POA seems to understand and agrees to proceed with anesthesia plan. Reviewed the physical assessment, medical history, allergy history and patient home medications list prior to surgery/procedure/anesthetic and documented any changes. Performed airway and anesthesia risk assessments. Anesthesia Type Anesthesia Type: General and MAC History Source History Obtained from:: Patient and Chart Anesthesia Focused Assessment* Temperature: 97.6 F Pulse Rate: 61 Blood Pressure: 136/78 Respiratory Rate: 16 Pulse Ox: 98 Airway Assessment Mouth opens: >3 cm Mallampati Score: II Teeth Condition: Intact and Implants (Permanent bridges in upper right incisors, and bottom right molar) Neck Range of motion (ROM): Full ROM Labs Anesthesia Preop lab: CBC WBC 8.4 K/mm3 (4.4-11.0) 06/27/24 22:51 06/27/24 RBC 4.42 M/mm3 (4.6-6.2) L 06/27/24 22:51 06/27/24 Hgb 12.9 g/dL (13.0-16.5) L 06/27/24 22:51 5 Hct 37.8 % (40-54) L 06/27/24 22:51 06/27/24 Plt Count 264 K/mm3 (150-450) 06/27/24 22:51 06/27/24 CHEMISTRY Potassium 4.2 mmol/L (3.3-5.1) 06/27/24 22:51 06/27/24 Sodium 138 mmol/L (133-145) 06/27/24 22:51 06/27/24 Magnesium 2.1 mg/dL (1.6-2.6) 01/29/24 05:54 01/29/24 Phosphorus 2.8 mg/dL (2.5-4.9) 01/29/24 05:54 01/29/24 BUN 17 mg/dL (4-19) 06/27/24 22:51 06/27/24 Creatinine 1.03 mg/dL (0.70-1.20) 06/27/24 22:51 06/27/24 Glucose 118 mg/dL (70-99) H 06/27/24 22:51 06/27/24 POC Glucose 83 mg/dL (74-106) 01/28/24 13:01 01/28/24 TSH 2.010 uIU/mL (0.358-3.740) 01/28/24 12:56 01/10 11/02 COAG PT 13.5 SECONDS (11.7-14.9) 01/28/24 12:56 Pre-Assessment Diagnosis/Proposed Procedure Planned Operative Procedure(s): EGD Anesthesia History 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 When Was Last Pacemaker Check QUESTION #4 FULL TEXT: You/Your Family Experience fever (hyperthermia) with Anesthesia Last Oral Intake Last Oral intake: Last Oral Intake NPO since 20:00 10/02/24 08:46 Meds taken in AM with sips of No 10/02/24 08:46 water? 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 - nuclear unit operator Female No 09/29/24 11:24 HX of Motion Sickness No 09/29/24 11:24 HX of N/V After Surgery No 09/29/24 11:24 Non-Smoker Yes 09/29/24 11:24 Duration of Surgery greater No 09/29/24 11:24 than 60 minutes Number of Risk Factors 1 09/29/24 11:24 PONV Score Low Risk 09/29/24 11:24 Height & Weight Height & Weight: Anesthesia: Height & Weight Height 5 ft 7 in 10/02/24 08:46 Weight: 85 kg 10/02/24 08:46 Body Mass Index (BMI) 29.3 10/02/24 08:46 Respiratory Assessment Respiratory Assessment - nuclear unit operator: Respiratory Tract Infection Hx - nuclear unit operator Hx Respiratory Tract Infection No 09/29/24 11:24 STOP Sleep Apnea STOP Sleep Apnea - nuclear unit operator: STOP Sleep Apnea - nuclear unit operator Hx Hypertension Yes: CONTROLLED WITH MED 09/29/24 11:24 Hx Sleep Apnea No 09/29/24 11:24 CPAP No 01/28/24 14:51 BIPAP Do you snore loudly (louder No 09/29/24 11:24 than talking or can be heard Do you often feel tired/ No 09/29/24 11:24 fatigued/ sleepy during daytime? Has anyone observed you stop No 09/29/24 11:24 breathing during sleep? STOP Results Negative 09/29/24 11:24 QUESTION #5 FULL TEXT : Do you snore loudly (louder than talking or can be heard through closed doors)? 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 Specify any problems Hx of Preganancy in last 3 N/A 09/29/24 11:24 Months Nurse Filling Out Transfusion NBUCHER 09/29/24 11:24 & Questions: Date: 09/29/24 09/29/24 11:24 Time: 11:09/29/24 11:24 Patient unable to answer at this time (ie. confused, unrespo /Reproduction History /Reproductive History - nuclear unit operator: /Reproductive Hx- nuclear unit operator Hx Now No 09/29/24 11:24 Gestational Age (in weeks): EDC: Hx Hx Para Hx Section SAB No 09/29/24 11:24 Active Medications Active Medications: Current Medications Generic Name Dose Route Start Last Admin Trade Name Freq PRN Reason Stop Dose Admin Lactated Ringer's 1,000 mls @ 15 mls/hr 10/02/24 08:30 10/02/24 08:53 IV 15 mls/hr .Q48H SALVADOR Administration PFSH Medical History History of diverticulitis History of echocardiogram PFO (patent foramen ovale) Wears glasses Arthritis Prostate disease High cholesterol History of hiatal hernia Heartburn Gastric reflux Former smoker History of stress test BPH (benign prostatic hyperplasia) Hypertension Perforation of sigmoid colon due to diverticulitis Home Medications Medication Instructions Recorded Last Taken Type tamsulosin 0.4 mg capsule 0.4 mg PO QHS URINATION 09/1010/01/24 History rosuvastatin 10 mg tablet 10 mg PO DAILY cholesterol 0 03/19/19 10/01/24 History lansoprazole 15 mg capsule,delayed 15 mg PO QDAY 07/3110/01/24 History release losartan 25 mg tablet 25 mg PO QDAY 07/31/2410/01 History amlodipine 5 mg tablet 5 mg PO DAILY 09/29/2410/01 History Allergy/AdvReac Type Severity Reaction Status Date / Time metoclopramide (From Reglan) AdvReac AGITATION Verified 09/29/24 11:22 Family History Other Cancer Surgical History History of colonoscopy History of esophagogastroduodenoscopy (EGD) History of foot surgery S/P right rotator cuff repair History of bilateral knee replacement History of cholecystectomy S/P colectomy (~04/2019) Social History household members: spouse housing: house Smoking Status: Former smoker alcohol intake: never Review of Systems (Anesthesia) ROS Narrative System reviewed and no additional complaints, except as documented.
--- NOTE | 2024-10-02 09:15 | EGD_PTH ---
PATIENT: EVI RENEE LOC: EN U#:[id number] AGE/SX: 74/M ROOM: RE10/02/[address]: Dr. Felipe Mejia DO : 1950 BED: DIS: 10/02/2024 SPEC #: [id number] RECD: 10/02/24 10:03 STATUS: DEMETRIO DAFNE #: [id number] VANDANA: 10/02/24 09:[address]: Felipe Mejia DEPT: SURGICAL PATHOLOGY RECD BY: Larry Redd ENTERED: 10/02/24 13:14 SP TYPE: EGD BIOPSY LAVERN DR: Dr. Caridad Grace DO Tissues: A - Esophagus, NOS B - Pyloric sphincter Procedures: Surgery Specimen Level IV HEADER OPERATION: EGD with biopsy PRE-OP DIAGNOSIS: GERD, Dill's esophagus, perforation of sigmoid colon due to diverticulitis, abdominal pain TISSUE SUBMITTED: A- Distal esophagus biopsy, B- Pyloric sphincter biopsy MICROSCOPIC DIAGNOSIS A. Distal esophagus, biopsy: - Dill mucosa negative for dysplasia. B. Stomach, pyloric sphincter, biopsy: - Gastro-duodenal junction with reactive changes. - Negative for neoplasia. MICROSCOPIC DESCRIPTION Slides are reviewed. GROSS DESCRIPTION A. Received in fixative is one container labeled with the patient's name and designated "Distal esophagus biopsy." The specimen consists of three irregular fragments of light lynn soft tissue that measure 0.3 to 0.4 cm. The specimen is totally submitted in one cassette. B. Received in fixative is one container labeled with the patient's name and designated "Pyloric sphincter biopsy." The specimen consists of two irregular fragments of light lynn soft tissue, each measuring 0.4 cm. The specimen is totally submitted in one cassette. OR 10/02/2024 CPT:29539a6
--- NOTE | 2024-10-02 09:46 | OP.EGD_ITS ---
Patient Name: Tru Tapia Procedure Date: 10/02/2024 9:26 AM Date of : 1950 Age: 74 Procedure: Upper GI endoscopy Indications: Epigastric abdominal pain, Functional Dyspepsia, Follow-up of Dill's esophagus Providers: Felipe Mejia DO Referring MD: Caridad Grace Medicines: Monitored Anesthesia Care Patient Profile: This is a 74 year old male. Refer to note in patient chart for documentation of history and physical. Patient has symptoms of chronic abdominal distention, chronic epigastric abdominal pain, chronic dyspepsia and chronic heartburn. Complications: No immediate complications. Procedure: Pre-Anesthesia Assessment: - Prior to the procedure, a History and Physical was performed, and patient medications and allergies were reviewed. The patient is competent. The risks and benefits of the procedure and the sedation options and risks were discussed with the patient. All questions were answered and informed consent was obtained. Patient identification and proposed procedure were verified by the physician in the pre-procedure area. Mental Status Examination: alert and oriented. Airway Examination: normal oropharyngeal airway and neck mobility. Respiratory Examination: clear to auscultation. CV Examination: normal. Prophylactic Antibiotics: The patient does not require prophylactic antibiotics. Prior Anticoagulants: The patient has taken no anticoagulant or antiplatelet agents except for NSAID medication. ASA Grade Assessment: II - A patient with mild systemic disease. After reviewing the risks and benefits, the patient was deemed in satisfactory condition to undergo the procedure. The anesthesia plan was to use monitored anesthesia care (MAC). Immediately prior to administration of medications, the patient was re-assessed for adequacy to receive sedatives. The heart rate, respiratory rate, oxygen saturations, blood pressure, adequacy of pulmonary ventilation, and response to care were monitored throughout the procedure. The physical status of the patient was re-assessed after the procedure. After obtaining informed consent, the endoscope was passed under direct vision. Throughout the procedure, the patient's blood pressure, pulse, and oxygen saturations were monitored continuously. The was introduced through the mouth, and advanced to the fourth part of the duodenum. Small bowel enteroscopy was deemed necessary. The upper GI endoscopy was accomplished without difficulty. The patient tolerated the procedure well. Scope In: 9:35:24 AM Scope Out: 9:39:53 AM Total Procedure Duration Time 0 hours 4 minutes 29 seconds Findings: There were esophageal mucosal changes secondary to established short-segment Dill's disease present in the lower third of the esophagus. The maximum longitudinal extent of these mucosal changes was 3 cm in length. Mucosa was biopsied with a cold forceps for histology in a targeted manner at intervals of 1 cm in the lower third of the esophagus. One specimen bottle was sent to pathology. Verification of patient identification for the specimen was done. Estimated blood loss was minimal. Patchy mildly erythematous mucosa without bleeding was found at the pylorus. Biopsies were taken with a cold forceps for histology. Verification of patient identification for the specimen was done. Estimated blood loss was minimal. Biopsies were taken with a cold forceps for Helicobacter pylori testing. Verification of patient identification for the specimen was done. Estimated blood loss was minimal. The exam of the duodenum was otherwise normal. Impression: - Esophageal mucosal changes secondary to established short-segment Dill's disease. Biopsied. - Erythematous mucosa in the pylorus. Biopsied. Recommendation: - Discharge patient to home. - Resume previous diet. - Continue present medications. - Await pathology results. Procedure Code(s): --- Professional --- 94051, Small intestinal endoscopy, enteroscopy beyond second portion of duodenum, not including ileum; with biopsy, single or multiple CPT copyright 2021 [employer]. All rights reserved. The codes documented in this report are preliminary and upon escrow representative review may be revised to meet current compliance requirements. Felipe Mejia DO 10/02/2024 9:46:29 AM This report has been signed electronically. Number of Addenda: 0 Note Initiated On: 10/02/2024 9:26 AM
--- NOTE | 2024-10-02 09:47 | OP.CCLET_ITS ---
10/02/2024 Caridad Grace [address] [place] [address] Re : Upper GI endoscopy procedure for Tru Tapia Dear Dr. Grace This procedure was performed on September. 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 Biopsied. - Erythematous mucosa in the pylorus. Biopsied. Recommendations : - Discharge patient to home. - Resume previous diet. - Continue present medications. - Await pathology results. My findings are described in the full procedure note, which is enclosed. If I can be of further assistance, please feel free to contact me at . Sincerely, Felipe Mejia, 10/02/2024 9:46:29 AM This report has been signed electronically.
--- NOTE | 2024-10-02 09:50 | PCM.POST.ANE ---
Anesthesia: Postop Eval I Current Vital Signs Temperature: 97 F Pulse Rate: 59 Blood Pressure: 86/56 Respiratory Rate: 14 Pulse Ox: 96 Oxygen Delivery Method: Room Air Assessment Airway patent: Yes Spontaneous unlabored respirations: Yes Mental status: Asleep nausea: No Vomiting: No Anesthesia Complication: No Fluid Hydration Crystalloid volume administer (ml): 300 Total IV fluid infused: 300 Progress Note Anesthesia document: Postop Eval 1 completed: Yes
--- NOTE | 2024-10-02 10:31 | PCM.POSTANE2 ---
Anesthesia Postop Eval I Sum Postop Eval Completion status Anesthesia document: Postop Eval 1 completed: Yes Anesthesia Postop Eval I Summary Anesthesia Postop Eval I Summary: Anesthesia Postop Eval I: Assessment Summary Airway patent Yes 10/02/24 09:50 [email or web address] Spontaneous unlabored Yes 10/02/24 09:50 [email or web address] respirations Mental status Asleep 10/02/24 09:50 [email or web address] nausea No 10/02/24 09:50 [email or web address] Vomiting No 10/02/24 09:50 [email or web address] Anesthesia Postop Eval I: Fluid Summary Crystalloid volume administer 300 10/02/24 09:50 [email or web address] (ml) Colloids volume administered ( ml) Blood Product volume administered (ml) Total IV fluid infused 300 10/02/24 09:50 [email or web address] Anesthesia Postop Eval I: Summary Notes Anesthesia Complication No 10/02/24 09:50 [email or web address] Anesthesia Complication Comment: Post-operative progress note Anesthesia: Postop Eval II Evaluation Mental status: Awake and Calm Pain Level: 1 nausea: No Vomiting: No Complications Anesthesia Complication: No
== END 2024-10-02 10:22 | disposition home or self-care (01) ==
LOC: EN 08:12 → AC 08:14
PROVIDERS: PCP Internal Medicine; Referring Provider Internal Medicine; Visit Provider Internal Medicine Gastroenterology
PROC: 0DJ08ZZ Inspection of Upper Intestinal Tract, Via Natural or Artificial Opening Endoscopic (ICD-10-PCS; CPT 43235; principal; 2024-10-02 09:10)
DX: K22.70 Barrett's esophagus without dysplasia (principal); Z87.891 Personal history of nicotine dependence; E78.00 Pure hypercholesterolemia, unspecified; Z87.19 Personal history of other diseases of the digestive system; K21.9 Gastro-esophageal reflux disease without esophagitis; Z90.49 Acquired absence of other specified parts of digestive tract
CPT/HCPCS: 44361; 88305; J2405

== ENCOUNTER 2025-01-05 19:30 | Emergency (ER) | payer MEDICARE, SELFPAY ==
[2025-01-05 19:30] VITALS: BP 160/70; PULSE 75; RESP 17; TEMP 36.7; O2SAT 99; BMI 29.7
[2025-01-05 20:31] VITALS: BP 157/80; PULSE 71; RESP 16; O2SAT 100
--- NOTE | 2025-01-05 21:00 | CT_ITS ---
PROCEDURE: ABDOMEN/PELVIS WITHOUT CONT 01/05/2025 REASON FOR EXAM: RIGHT SIDED FLANK PAIN TECHNIQUE: Procedure Code: CTABDPEL Modality: CT Procedure: ABDOMEN/PELVIS WITHOUT CONT Noncontrast technique limits evaluation of the abdominal and pelvic viscera. Coronal and Sagittal reconstruction series were provided. One or more dose reduction techniques were used (e.g., Automated exposure control, adjustment of the mA and/or kV according to patient size, use of iterative reconstruction technique). COMPARISON: 06/27/2024 CT. FINDINGS: The lung bases are clear. The peripheral soft tissues unremarkable. Degenerative changes of the spine. Moderate atherosclerosis. Normal caliber abdominal aorta. No suspicious lymphadenopathy. Left hepatic lobe cyst. Additional subcentimeter hypodense hepatic lesions which are too small to characterize. Surgically absent gallbladder. Pancreas, spleen, and adrenals are unremarkable. No renal or ureteral calculi. No hydroureteronephrosis. The urinary bladder is unremarkable. Borderline enlarged prostate. Normal caliber large and small bowel without surrounding inflammatory changes. Dense colonic stool suspicious for constipation. Partial sigmoid resection with anastomotic suture. CT/Abdomen/Pelvis without Cont IMPRESSION: No renal or ureteral calculi. No hydroureteronephrosis. Left hepatic lobe cyst and additional subcentimeter hypodense hepatic lesions t oo small to characterize. Surgically absent gallbladder. Partial sigmoid resection with anastomotic suture. Dense colonic stool pattern suspicious for constipation. Borderline enlarged prostate. Moderate atherosclerosis. Degenerative changes of the spine. Reading Location: [id number]
[2025-01-05 21:17] LABS: Hematocrit 37.2 % (40-54); Hemoglobin 12.3 g/dL (13.0-16.5); Immature Granulocytes Count 0.030 X10^3/uL (0.0-0.0); Mean Corp Hgb Conc 33.1 g/dL (32-36); Mean Corpuscular Volume 86.7 fL (80-94); Mean Platelet Vol. 9.7 fl (6.2-12.0); NRBC Flagged by Analyzer 0 % (0-5); Platelet Count 248 K/mm3 (150-450); RBC Distribution Width CV 12.6 % (11.6-14.6); RBC Distribution Width SD 40.2 fl (35.1-43.9); Red Blood Count 4.29 M/mm3 (4.6-6.2); White Blood Count 7.6 K/mm3 (4.4-11.0)
[2025-01-05 21:31] LABS: Mucous, Urine 0 SEEN /hpf (<or=2+); Red Blood Cells-Urine 0 SEEN /hpf (0-5); Squamous Epithelial Cells - UA 0 SEEN /hpf (0-5)
[2025-01-05 21:32] LABS: Color, Urine Yellow (Yellow); Glucose, Dipstick Normal (Normal); Ketone-Dipstick Negative (Negative); Leukocyte Esterase-Dipstick Negative /ul (Negative); Nitrite-Dipstick Negative (Negative); Occult Blood-Urine 10 /ul (Negative); Protein-Dipstick 15 mg/dl (Negative); Specific Gravity, Urine 1.015 (1.002-1.030); Urine Bilirubin Dipstick Negative (Negative)
[2025-01-05 21:33] LABS: Anion Gap 9 (5-15); BUN 17 mg/dL (4-19); BUN/Creat Ratio 21.1 RATIO (10-20); Calcium,Total 9.3 mg/dL (7.6-11.0); Carbon Dioxide 27.5 mmol/L (21.0-32.0); Chloride 102 mmol/L (98-108); Estimated Creatinine Clearance 82.87 ml/min (50-250); Glucose 112 mg/dL (70-99); Potassium 4.6 mmol/L (3.3-5.1)
[2025-01-05 22:00] VITALS: BP 126/71; PULSE 55; O2SAT 97
[2025-01-05 22:17] VITALS: BP 126/71; PULSE 55; RESP 16; TEMP 36.7; O2SAT 97
--- NOTE | 2025-01-05 23:00 | EX.ED.DYSGE1 ---
HPI History of Present Illness Chief Complaint: Hypertension Narrative Narrative: Patient is a 74-year-old male presenting to the emergency department for right sided flank pain and reported elevated blood pressure at home. Patient states that for the past 2 months he has had intermittent right sided flank pain that comes and goes. He states it wraps down into his right lower quadrant. States that it worsens with any movement or twisting of his trunk. Patient states that he checked his blood pressure at home and it was elevated in the systolics of 160s. States that he was concerned about his kidneys given his elevated blood pressure. States that he has been taking his blood pressure medication as prescribed at home. Patient denies headache to me, states his head felt flushed earlier which is why he told triage he had a slight headache. He denies any visual changes, focal numbness or weakness, chest pain, shortness of breath, abdominal pain, nausea, vomiting. Denies any recent changes to his blood pressure medications. [facility] Medical History History of diverticulitis History of echocardiogram PFO (patent foramen ovale) Wears glasses Arthritis Prostate disease High cholesterol History of hiatal hernia Heartburn Gastric reflux Former smoker History of stress test BPH (benign prostatic hyperplasia) Hypertension Perforation of sigmoid colon due to diverticulitis Home Medications ?Medication ?Instructions ?Recorded ?Last Taken ?Type tamsulosin 0.4 mg capsule 0.4 mg PO QHS URINATION 10/06/16 10/01/24 History rosuvastatin 10 mg tablet 10 mg PO DAILY cholesterol 03/19/19 10/01/24 History lansoprazole 15 mg capsule,delayed 15 mg PO QDAY 07/31/24 10/01/24 History release losartan 25 mg tablet 25 mg PO QDAY 07/31/24 10/01/24 History amlodipine 5 mg tablet 5 mg PO DAILY 09/29/24 10/01/24 History Allergy/AdvReac Type Severity Reaction Status Date / Time metoclopramide (From Reglan) AdvReac AGITATION Verified 01/05/25 19:31 Family History Other Cancer Surgical History History of colonoscopy History of esophagogastroduodenoscopy (EGD) History of foot surgery S/P right rotator cuff repair History of bilateral knee replacement History of cholecystectomy S/P colectomy (~04/2019) Social History household members: spouse housing: house Smoking Status: Former smoker alcohol intake: never ROS ROS ED ROS Narrative See HPI EXAM Physical Exam Narrative Exam Narrative: Vital signs: Reviewed General: Alert and oriented x 3. No acute distress HEENT: Head is normocephalic and atraumatic, sinuses nontender, pupils equal round and reactive. Nares are patent. Oropharynx and throat exams normal. Neck: Supple without lymphadenopathy nontender Cardiovascular: Regular rate and rhythm, no murmurs. No rubs or gallops. Normal S1 and S2. Radial and DP/PT pulses are 2+ and symmetric throughout. Respiratory: Clear to auscultation bilaterally. No wheezes, rales, rhonchi Abdominal: Soft and nontender. Normal bowel sounds. No guarding or rebound. Nonsurgical abdomen. No CVA tenderness to palpation. Extremities: There is no midline thoracic or lumbar spinal tenderness palpation. No step-offs or deformities. No rashes to the back. No lower extremity edema. No tenderness. No bruising. Normal range of motion. Normal sensation. Skin: No rash or redness. Neurological: Cranial nerves II through XII are grossly intact. Normal strength and sensation. Normal cerebellar function The rest of the physical exam is unremarkable Const Vital Signs: 01/05/25 19:30 01/05/25 20:31 01/05/25 20:31 Temperature 98.1 F Temperature Source Oral Pulse Rate 75 71 Respiratory Rate 17 16 Respiratory Effort Normal Respiratory Pattern Normal Blood Pressure 160/70 H 157/80 H Blood Pressure Mean 100 105 Pulse Ox 99 100 Oxygen Delivery Method Room Air Room Air 01/05/25 22:00 01/05/25 22:17 Temperature 98.1 F Temperature Source Pulse Rate 55 L 55 L Respiratory Rate 16 Respiratory Effort Respiratory Pattern Blood Pressure 126/71 H 126/71 H Blood Pressure Mean 89 89 Pulse Ox 97 97 Oxygen Delivery Method Room Air MDM MDM MDM Narrative Medical decision making narrative: Patient is a 74-year-old male presenting to the emergency department for right-sided flank pain that has been coming and going for the past 2 months. Patient was seen and examined. Vitals are stable. Patient resting bed comfortably no acute distress. BP when I evaluated the patient was systolics in the high 150s over 70s. Differential includes but is not limited to: nephrolithiasis, musculoskeletal back pain, less likely aortic pathology given description of the pain worsening with twisting movements, equal pulses throughout, no tachycardia. Hypertensive emergency was also considered however blood pressures are 160/70 on my evaluation of the patient and he denies any headache, chest pain, shortness of breath or abdominal pain. No midline back pain on exam. Patient given Toradol for symptomatic control. CBC with no leukocytosis and chronic anemia of 12.3. BMP with no significant abnormalities. Normal kidney functioning. Urinalysis with no evidence of urinary tract infection. CT of the abdomen pelvis shows no renal or ureteral calculi. No hydroureteronephrosis. Patient was reevaluated and updated on the lab and imaging findings. Patient was given RICE instructions for musculoskeletal back pain. Patient discharged from the Emergency Department. I do not feel that the patient's evaluation reveals any acute reason for admission at this time. I instructed them to either follow-up with their primary care physician or promptly return to the Emergency Department for reevaluation should symptoms worsen or new symptoms develop. I explained what symptoms would indicate the need to return to the emergency department. Shared decision making was used. The patient voiced understanding of the treatment plan and is agreeable with it. Clinical impression Musculoskeletal back pain History & Record Review Discussion w/independent historian: Patient and Significant other Lab Data Attestation: I reviewed the patient's lab results. Labs: Laboratory Results - last 24 hr 01/05/25 01/05/25 21:06 21:23 WBC 7.6 RBC 4.29 L Hgb 12.3 L Hct 37.2 L MCV 86.7 MCH 28.7 MCHC 33.1 RDW Std Deviation 40.2 RDW Coeff of Bradley 12.6 Plt Count 248 MPV 9.7 Immature Gran % (Auto) 0.400 Neut % (Auto) 67.4 Lymph % (Auto) 20.9 [place] % (Auto) 8.8 Eos % (Auto) 1.7 Baso % (Auto) 0.8 Absolute Neuts (auto) 5.1 Absolute Lymphs (auto) 1.59 Nucleated RBC % 0 Sodium 139 Potassium 4.6 Chloride 102 Carbon Dioxide 27.5 Anion Gap 9 BUN 17 Creatinine 0.82 Estim Creat Clear Calc 82.87 Est GFR (MDRD) Non-Af 92 BUN/Creatinine Ratio 21.1 H Glucose 112 H Calcium 9.3 Urine Color Yellow Urine Clarity Clear Urine pH 6.0 Ur Specific [place] 1.015 Urine Protein 15 H Urine Glucose (UA) Normal Urine Ketones Negative Urine Occult Blood 10 H Urine Nitrite Negative Urine Bilirubin Negative Urine Urobilinogen Normal Ur Leukocyte Esterase Negative Urine RBC 0 SEEN Urine WBC 0 SEEN Ur Squamous Epith Cells 0 SEEN Urine Bacteria 0 SEEN Urine Mucus 0 SEEN Radiography Diagnostic Testing: Clinical Impression(s) from Imaging Studies Abdomen/Pelvis CT 01/05/25 21:00 IMPRESSION: No renal or ureteral calculi. No hydroureteronephrosis. Left hepatic lobe cyst and additional subcentimeter hypodense hepatic lesions too small to characterize. Surgically absent gallbladder. Partial sigmoid resection with anastomotic suture. Dense colonic stool pattern suspicious for constipation. Borderline enlarged prostate. Moderate atherosclerosis. Degenerative changes of the spine. Reading Location: [id number] Discharge Plan Triage Chief Complaint: Hypertension ED Provider: Cheyanne Dong Dx/Rx/DC Orders Clinical Impression: Musculoskeletal back pain Instructions: ED Back Care Tips, ED Back Pain (Acute or Chronic) Prescriptions: No Action losartan 25 mg tablet 25 mg PO QDAY lansoprazole 15 mg capsule,delayed release(DR/EC) 15 mg PO QDAY tamsulosin 0.4 MG capsule 0.4 mg PO QHS Patient Comments: rosuvastatin 10 MG tablet 10 mg PO DAILY Patient Comments: TAKE 1 TABLET BY MOUTH EVERY DAY amlodipine 5 mg tablet 5 mg PO DAILY Primary Care Provider: Caridad Grace Referrals: Caridad Grace DO [Primary Care Provider, Internal Medicine] - As soon as possible Activity Restrictions/Additional Instructions: Take Motrin or Tylenol at home for pain control. Your evaluation in the Emergency Department did not reveal any acute reason for admission. However, I want to emphasize that you may be early in the course of a disease process or illness even if it is not present. For this reason you should follow-up within 24 hours for reevaluation with either your primary care physician or if necessary back here in the Emergency Department. You should return to the Emergency Department immediately if your symptoms worsen or new symptoms develop. Print Language: [place] Disposition Disposition: Home, Self Care Discharge Date/Time: 01/05/25 22:20
== END 2025-01-05 22:20 | disposition home or self-care (01) ==
PROVIDERS: Emergency Provider Student in an Organized Health Care Education/Training Program; PCP Internal Medicine; Visit Provider Student in an Organized Health Care Education/Training Program
DX: M54.9 Dorsalgia, unspecified (principal); I10 Essential (primary) hypertension; R10.A1 Flank pain, right side; Z87.891 Personal history of nicotine dependence; E78.00 Pure hypercholesterolemia, unspecified; K21.9 Gastro-esophageal reflux disease without esophagitis; D64.9 Anemia, unspecified
CPT/HCPCS: 74176; 80048; 81001; 85025; 96374; 99284; A4216

== ENCOUNTER 2025-02-19 05:51 | Day surgery (SDC) | payer MEDICARE, SELFPAY ==
--- NOTE | 2025-02-17 16:55 | PAT.ANE_ITS ---
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 When Was Last Pacemaker Check QUESTION #4 FULL TEXT: You/Your Family Experience fever (hyperthermia) with Anesthesia Last Oral Intake Last Oral intake: Last Oral Intake NPO since Meds taken in AM with sips of water? Meds patient instructed to take am of surgery PONV PONV - division supervisor: PONV - division supervisor Female Yes 02/17/25 12:28 HX of Motion Sickness No 02/17/25 12:28 HX of N/V After Surgery No 02/17/25 12:28 Non-Smoker Yes 02/17/25 12:28 Duration of Surgery greater No 02/17/25 12:28 than 60 minutes Number of Risk Factors 2 02/17/25 12:28 PONV Score Moderate Risk 02/17/25 12:28 Height & Weight Height & Weight: Anesthesia: Height & Weight Height 5 ft 7 in 01/15/25 08:05 Respiratory Assessment Respiratory Assessment - division supervisor: Respiratory Tract Infection Hx - division supervisor Hx Respiratory Tract Infection No 02/17/25 12:28 STOP Sleep Apnea STOP Sleep Apnea - division supervisor: STOP Sleep Apnea - division supervisor Hx Hypertension Yes: CONTROLLED WITH MED 02/17/25 12:28 Hx Sleep Apnea No 02/17/25 12:28 CPAP No 02/17/25 12:28 BIPAP Do you snore loudly (louder No 02/17/25 12:28 than talking or can be heard Do you often feel tired/ No 02/17/25 12:28 fatigued/ sleepy during daytime? Has anyone observed you stop No 02/17/25 12:28 breathing during sleep? STOP Results Negative 02/17/25 12:28 QUESTION #5 FULL TEXT : Do you snore loudly (louder than talking or can be heard through closed doors)? 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 Specify any problems Hx of Preganancy in last 3 N/A 02/17/25 12:28 Months Nurse Filling Out Transfusion [email or web address] 02/17/25 12:28 & Questions: Date: 02/17/25 02/17/25 12:28 Time: 12:29 02/17/25 12:28 Patient unable to answer at this time (ie. confused, unrespo /Reproduction History /Reproductive History - division supervisor: /Reproductive Hx- division supervisor Hx Now Gestational Age (in weeks): EDC: Hx Hx Para Hx Section SAB No 02/17/25 12:28 Does the father of the baby or his family experience fever w Father of the baby Malignant Hypertension history comment PFSH Medical History History of diverticulitis History of echocardiogram PFO (patent foramen ovale) Wears glasses Arthritis Prostate disease High cholesterol History of hiatal hernia Heartburn Gastric reflux Former smoker History of stress test BPH (benign prostatic hyperplasia) Hypertension Perforation of sigmoid colon due to diverticulitis Home Medications ?Medication ?Instructions ?Recorded ?Last Taken ?Type tamsulosin 0.4 mg capsule 0.4 mg PO QHS URINATION 09/1010/01/24 History rosuvastatin 10 mg tablet 10 mg PO DAILY cholesterol 0 03/19/19 10/01/24 History lansoprazole 15 mg capsule,delayed 15 mg PO QDAY 07/3110/01/24 History release amlodipine 5 mg tablet 5 mg PO DAILY 09/29/2410/01 History losartan 50 mg tablet 50 mg PO DAILY Blood Pressur e 02/17/25 Unknown History Allergy/AdvReac Type Severity Reaction Status Date / Time metoclopramide (From Reglan) AdvReac AGITATION Verified 01/15/25 08:03 Family History Other Cancer Surgical History History of colonoscopy History of esophagogastroduodenoscopy (EGD) History of foot surgery S/P right rotator cuff repair History of bilateral knee replacement History of cholecystectomy S/P colectomy (~04/2019) Social History household members: spouse housing: house Smoking Status: Former smoker alcohol intake: never Audit: Pertinent Findings Pertinent Findings EKG Perinent findings: EKG 06/27/2024. Normal sinus rhythm. Echo (EF%) pertinent findings: Echo 01/28/2024. Normal LV size. Left ventricular systolic function is normal. EF is 70%. Mild concentric left ventricular hypertrophy. Recommendation Anesthesia Recommendation Anesthesia recommendation: OPTIMIZED for anesthesia
[2025-02-19] VITALS (8 sets, daily range): BP systolic 102–144; BP diastolic 60–80; PULSE 57–68; RESP 16–18; TEMP 36.4–36.5; O2SAT 97–100; BMI 28.6
[2025-02-19] MEDS: Lactated Ringers 1,000 ML 15 ML IV (06:36)
--- NOTE | 2025-02-19 06:43 | PCM.HP.STD ---
HPI - General General Date of Admission: 02/19/25 Date of Service: 02/19/25 Chief Complaint: Anemia HPI Narrative EVI RENEE, is a 75 M who presents [today for evaluation of anemia. His hemoglobin has been dropping. He has a history of perforated diverticulitis with primary resection and anastomosis.] [facility] Medical History History of diverticulitis History of echocardiogram PFO (patent foramen ovale) Wears glasses Arthritis Prostate disease High cholesterol History of hiatal hernia Heartburn Gastric reflux Former smoker History of stress test BPH (benign prostatic hyperplasia) Hypertension Perforation of sigmoid colon due to diverticulitis Home Medications ?Medication ?Instructions ?Recorded ?Last Taken ?Type tamsulosin 0.4 mg capsule 0.4 mg PO QHS URINATION 10/06/16 02/18/25 History rosuvastatin 10 mg tablet 10 mg PO DAILY cholesterol 03/19/19 02/18/25 History lansoprazole 15 mg capsule,delayed 15 mg PO QDAY 07/31/24 02/18/25 History release amlodipine 5 mg tablet 5 mg PO DAILY 09/29/24 02/19/25 History losartan 50 mg tablet 50 mg PO DAILY Blood Pressure 02/17/25 02/19/25 History Allergy/AdvReac Type Severity Reaction Status Date / Time metoclopramide (From Reglan) AdvReac AGITATION Verified 02/19/25 06:21 Family History Other Cancer Surgical History History of colonoscopy History of esophagogastroduodenoscopy (EGD) History of foot surgery S/P right rotator cuff repair History of bilateral knee replacement History of cholecystectomy S/P colectomy (~04/2019) Social History household members: spouse housing: house Smoking Status: Former smoker alcohol intake: never ROS Constitutional Constitutional: Denies fatigue, fever(s), poor appetite, weight gain or weight loss Gastrointestinal Gastrointestinal: Denies belching, bloating, change in bowel habits, change in stool character, chewing difficulty, coffee ground emesis, constipation, cramping, diarrhea, dyspepsia, dysphagia, early satiety, excessive flatus, fecal incontinence, heartburn, hematemesis, hematochezia, hemorrhoids, loose stools, melena, nausea, odynophagia, rectal bleeding, tenesmus, vomiting or weight changes Vital Signs Vital Signs Vital Signs: 02/19/25 06:23 02/19/25 06:23 02/19/25 06:23 Temperature 97.5 F L Temperature Source Temporal Pulse Rate 68 Respiratory Rate 18 Respiratory Pattern Normal Blood Pressure 144/80 H Blood Pressure Mean 101 Blood Pressure Source Monitor Blood Pressure Position Semi-Fowlers Blood Pressure Location Right Arm Baseline BP 144/80 Pulse Ox 99 Oxygen Delivery Method Room Air Weight Weight: 182 lb 15.739 oz Body Mass Index (BMI) 28.6 Physical Exam Const alert, oriented x3, no apparent distress and healthy appearing General Appearance: cooperative GI normal to inspection, nondistended, normoactive bowel sounds, soft to palpation, non-tender and non-distended Percussion: normal to percussion Rectal Exam: deferred Assessment & Plan Assessment/Plan (1) Anemia: PLAN: He will undergo endoscopic evaluation. He was explained alternatives, risk and benefits include not withstanding bleeding, infection, sepsis, perforation, need for more surgery . He will have an ASA 3.
--- NOTE | 2025-02-19 06:53 | PRE.ANES_ITS ---
ASA Classification* ASA Classification ASA Classification: 2 Assessment & Plan Anesthesia* Anesthesia Assessment Anesthesia Assessment: Discussed sedation and/or anesthesia options, risks, benefits, and alternatives with patient/parents/legal guardian/POA. Questions invited. The patient/parents/legal guardian/POA seems to understand and agrees to proceed with anesthesia plan. Reviewed the physical assessment, medical history, allergy history and patient home medications list prior to surgery/procedure/anesthetic and documented any changes. Performed airway and anesthesia risk assessments. Anesthesia Type Anesthesia Type: MAC History Source History Obtained from:: Patient and Chart Anesthesia Focused Assessment* Temperature: 97.5 F Pulse Rate: 68 Blood Pressure: 144/80 Respiratory Rate: 18 Pulse Ox: 99 Oxygen Delivery Method: Room Air Airway Assessment Mouth opens: >3 cm Mallampati Score: II Teeth Condition: Caps/Crowns (Patient has several crowns. They are all tight.) and Missing (Patient is missing a left lower molar. Rest of the teeth are tight.) Neck Range of motion (ROM): Limited ROM (Somewhat Decreased) Labs Anesthesia Preop lab: CBC WBC, (4.4-11.0) 7.6 K/mm3 01/05/25, 21:06 RBC, (4.6-6.2) 4.29 M/mm3 L 01/05/25, 21:06 Hgb, (13.0-16.5) 12.3 g/dL L 01/05/25, 21:06 Hct, (40-54) 37.2 % L 01/05/25, 21:06 Plt Count, (150-450) 248 K/mm3 01/05/25, 21:06 CHEMISTRY Potassium, (3.3-5.1) 4.6 mmol/L 01/05/25, 21:06 Sodium, (133-145) 139 mmol/L 01/05/25, 21:06 Magnesium, (1.6-2.6) 2.1 mg/dL 01/29/24, 05:54 Phosphorus, (2.5-4.9) 2.8 mg/dL 01/29/24, 05:54 BUN, (4-19) 17 mg/dL 01/05/25, 21:06 Creatinine, (0.70-1.20) 0.82 mg/dL 01/05/25, 21:06 Glucose, (70-99) 112 mg/dL H 01/05/25, 21:06 POC Glucose, (74-106) 83 mg/dL 01/28/24, 13:01 TSH, (0.358-3.740) 2.010 uIU/mL 01/28/24, 12:56 COAG PT, (11.7-14.9) 13.5 SECONDS 01/28/24, 12:56 Pre-Assessment Diagnosis/Proposed Procedure Planned Operative Procedure(s): COLONOSCOPY Anesthesia History 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 When Was Last Pacemaker Check QUESTION #4 FULL TEXT: You/Your Family Experience fever (hyperthermia) with Anesthesia Last Oral Intake Last Oral intake: Last Oral Intake NPO since 01:30 02/19/25 06:23 Meds taken in AM with sips of Yes 02/19/25 06:23 water? 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 Female Yes 02/17/25 12:28 HX of Motion Sickness No 02/17/25 12:28 HX of N/V After Surgery No 02/17/25 12:28 Non-Smoker Yes 02/17/25 12:28 Duration of Surgery greater No 02/17/25 12:28 than 60 minutes Number of Risk Factors 2 02/17/25 12:28 PONV Score Moderate Risk 02/17/25 12:28 Height & Weight Height & Weight: Anesthesia: Height & Weight Height 5 ft 7 in 02/19/25 06:23 Weight: 83 kg 02/19/25 06:23 Body Mass Index (BMI) 28.6 02/19/25 06:23 Respiratory Assessment Respiratory Assessment - 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 Has anyone observed you stop No 02/17/25 12:28 breathing during sleep? STOP Results Negative 02/17/25 12:28 QUESTION #5 FULL TEXT : Do you snore loudly (louder than talking or can be heard through closed doors)? 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 Specify any problems Hx of Preganancy in last 3 N/A 02/17/25 12:28 Months Nurse Filling Out Transfusion [email or web address] 02/17/25 12:28 & Questions: Date: 02/17/25 02/17/25 12:28 Time: 12:02/17/25 12:28 Patient unable to answer at this time (ie. 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: /Reproductive Hx- municipal firefighter Hx Now Gestational Age (in weeks): EDC: Hx Hx Para Hx Section SAB No 02/17/25 12:28 Does the father of the baby or his family experience fever w Father of the baby Malignant Hypertension history comment Active Medications Active Medications: Current Medications Generic Name Dose Route Start Last Admin Trade Name Freq PRN Reason Stop Dose Admin Lactated Ringer's 1,000 mls @ 15 mls/hr 02/19/25 06:00 02/19/25 06:36 IV 15 mls/hr .Q48H SALVADOR Administration PFSH Medical History History of diverticulitis History of echocardiogram PFO (patent foramen ovale) Wears glasses Arthritis Prostate disease High cholesterol History of hiatal hernia Heartburn Gastric reflux Former smoker History of stress test BPH (benign prostatic hyperplasia) Hypertension Perforation of sigmoid colon due to diverticulitis Home Medications ?Medication ?Instructions ?Recorded ?Last Taken ?Type tamsulosin 0.4 mg capsule 0.4 mg PO QHS URINATION 09/1002/18/25 History rosuvastatin 10 mg tablet 10 mg PO DAILY cholesterol 0 03/19/19 02/18/25 History lansoprazole 15 mg capsule,delayed 15 mg PO QDAY 07/3102/18/25 History release amlodipine 5 mg tablet 5 mg PO DAILY 09/29/2402/19 History losartan 50 mg tablet 50 mg PO DAILY Blood Pressur e 02/17/25 02/19/25 History Allergy/AdvReac Type Severity Reaction Status Date / Time metoclopramide (From Reglan) AdvReac AGITATION Verified 02/19/25 06:21 Family History Other Cancer Surgical History History of colonoscopy History of esophagogastroduodenoscopy (EGD) History of foot surgery S/P right rotator cuff repair History of bilateral knee replacement History of cholecystectomy S/P colectomy (~04/2019) Social History household members: spouse housing: house Smoking Status: Former smoker alcohol intake: never Review of Systems (Anesthesia) ROS Narrative System reviewed and no additional complaints, except as documented.
--- NOTE | 2025-02-19 07:41 | OP.COLON_ITS ---
Patient Name: Tru Tapia Procedure Date: 02/19/2025 7:09 AM Date of : 1950 Age: 75 Procedure: Colonoscopy Indications: Iron deficiency anemia Providers: Felipe Mejia DO Referring MD: Caridad Grace Medicines: Monitored Anesthesia Care Patient Profile: This is a 75 year old male. Refer to note in patient chart for documentation of history and physical. Last Colonoscopy: several years ago. Complications: No immediate complications. Procedure: Pre-Anesthesia Assessment: - Prior to the procedure, a History and Physical was performed, and patient medications and allergies were reviewed. The patient is competent. The risks and benefits of the procedure and the sedation options and risks were discussed with the patient. All questions were answered and informed consent was obtained. Patient identification and proposed procedure were verified by the physician in the pre-procedure area. Mental Status Examination: alert and oriented. Airway Examination: normal oropharyngeal airway and neck mobility. Respiratory Examination: clear to auscultation. CV Examination: normal. Prophylactic Antibiotics: The patient does not require prophylactic antibiotics. Prior Anticoagulants: The patient has taken no anticoagulant or antiplatelet agents except for NSAID medication. ASA Grade Assessment: II - A patient with mild systemic disease. After reviewing the risks and benefits, the patient was deemed in satisfactory condition to undergo the procedure. The anesthesia plan was to use monitored anesthesia care (MAC). Immediately prior to administration of medications, the patient was re-assessed for adequacy to receive sedatives. The heart rate, respiratory rate, oxygen saturations, blood pressure, adequacy of pulmonary ventilation, and response to care were monitored throughout the procedure. The physical status of the patient was re-assessed after the procedure. After I obtained informed consent, the scope was passed under direct vision. Throughout the procedure, the patient's blood pressure, pulse, and oxygen saturations were monitored continuously. The Colonoscope was introduced through the anus and advanced to the cecum, identified by appendiceal orifice and ileocecal valve. The colonoscopy was performed without difficulty. The patient tolerated the procedure well. The quality of the bowel preparation was adequate. Scope In: 7:26:28 AM Scope Withdrawal Time 0 hours 8 minutes 42 seconds Scope Out: 7:37:21 AM Total Procedure Duration Time 0 hours 10 minutes 53 seconds Findings: The perianal and digital rectal examinations were normal. A few small and large-mouthed diverticula were found in the recto-sigmoid colon and sigmoid colon. The exam was otherwise without abnormality on direct and retroflexion views. There was evidence of a prior end-to-end colo-colonic anastomosis in the sigmoid colon. This was patent and was characterized by healthy appearing mucosa. Impression: - Diverticulosis in the recto-sigmoid colon and in the sigmoid colon. - The examination was otherwise normal on direct and retroflexion views. - No specimens collected. Recommendation: - Discharge patient to home. - Resume previous diet. - Continue present medications. - Repeat colonoscopy in 5 years for surveillance. Procedure Code(s): --- Professional --- 14543, Colonoscopy, flexible; diagnostic, including collection of specimen(s) by brushing or washing, when performed (separate procedure) CPT copyright 2021 [employer]. All rights reserved. The codes documented in this report are preliminary and upon ion exchange operator review may be revised to meet current compliance requirements. Felipe Mejia DO 02/19/2025 7:40:51 AM This report has been signed electronically. Number of Addenda: 0 Note Initiated On: 02/19/2025 7:09 AM
--- NOTE | 2025-02-19 07:41 | OP.PROVAT_ITS ---
02/19/2025 Caridad Grace [address] [place] [address] Re : Colonoscopy procedure for Tru Tapia Dear Dr. Grace This procedure was performed on February. My impressions and recommendations are as follows: Impressions : - Diverticulosis in the recto-sigmoid colon and in the sigmoid colon. - The examination was otherwise normal on direct and retroflexion views. - No specimens collected. Recommendations : - Discharge patient to home. - Resume previous diet. - Continue present medications. - Repeat colonoscopy in 5 years for surveillance. My findings are described in the full procedure note, which is enclosed. If I can be of further assistance, please feel free to contact me at . Sincerely, Felipe Mejia, 02/19/2025 7:40:51 AM This report has been signed electronically.
--- NOTE | 2025-02-19 07:46 | PCM.POST.ANE ---
Anesthesia: Postop Eval I Current Vital Signs Temperature: 97.7 F Pulse Rate: 64 Blood Pressure: 102/64 Respiratory Rate: 16 Pulse Ox: 100 Oxygen Delivery Method: Room Air Assessment Airway patent: Yes Spontaneous unlabored respirations: Yes Mental status: Awake and Calm nausea: No Vomiting: No Anesthesia Complication: No Fluid Hydration Crystalloid volume administer (ml): 500 Total IV fluid infused: 500 Progress Note Anesthesia document: Postop Eval 1 completed: Yes
--- NOTE | 2025-02-19 12:32 | PCM.POSTANE2 ---
Anesthesia Postop Eval I Sum Postop Eval Completion status Anesthesia document: Postop Eval 1 completed: Yes Anesthesia Postop Eval I Summary Anesthesia Postop Eval I Summary: Anesthesia Postop Eval I: Assessment Summary Airway patent Yes 02/19/25 07:48 [email or web address] Spontaneous unlabored Yes 02/19/25 07:48 [email or web address] respirations Mental status Awake,Calm 02/19/25 07:48 [email or web address] nausea No 02/19/25 07:48 [email or web address] Vomiting No 02/19/25 07:48 [email or web address] Anesthesia Postop Eval I: Fluid Summary Crystalloid volume administer 500 02/19/25 07:48 [email or web address] (ml) Colloids volume administered ( ml) Blood Product volume administered (ml) Total IV fluid infused 500 02/19/25 07:48 [email or web address] Anesthesia Postop Eval I: Summary Notes Anesthesia Complication No 02/19/25 07:48 [email or web address] Anesthesia Complication Comment: Post-operative progress note Anesthesia: Postop Eval II Evaluation Mental status: Awake Pain Level: 0 nausea: No Vomiting: No
== END 2025-02-19 08:13 | disposition home or self-care (01) ==
LOC: EN 05:51 → AC 05:53
PROVIDERS: PCP Internal Medicine; Referring Provider Internal Medicine; Visit Provider Internal Medicine Gastroenterology
PROC: 0DJD8ZZ Inspection of Lower Intestinal Tract, Via Natural or Artificial Opening Endoscopic (ICD-10-PCS; CPT 45378; principal; 2025-02-19 06:55)
DX: D50.9 Iron deficiency anemia, unspecified (principal); K57.30 Diverticulosis of large intestine without perforation or abscess without bleeding; E78.00 Pure hypercholesterolemia, unspecified; Z87.891 Personal history of nicotine dependence; Z98.0 Intestinal bypass and anastomosis status; K21.9 Gastro-esophageal reflux disease without esophagitis; I10 Essential (primary) hypertension; Z79.899 Other long term (current) drug therapy
CPT/HCPCS: 45378; J2405